=== PATIENT | male | born 1960 | race Caucasian/White ===

== ENCOUNTER 2017-07-03 10:36 | Emergency (ER) | payer OTHER ==
[~2017-07-03] VITALS: Ht 180.3 cm; Wt 95.2 kg
[~2017-07-03 10:36] MED LIST: ASPI81CH PO; ATOR40TA PO; BP MED; CLON.1 PO; CYCL10; HYDACE5325 PO; HYDR1TAB94 PO; Humalog100 UNIT/1 SC; Humulin N100 UNIT/1 SQ; IBUP800; INSULANPEN SC; INSULIN; INSULIN SYRING1 EAC1 MC; LISI5 PO; LORA1 PO; METH5 PO; ONDA4ODT MM; OXYACE7.5T PO; RXLORA1 PO; RXOXYACE PO; TRAM50 PO
[2017-07-03 11:11] LABS: BASOPHILS ABSOLUTE AUTO 0.05 K/mm3 (0.00-0.23); BASOPHILS PERCENT AUTO 1 % (0-2); EOSINOPHILS ABSOLUTE AUTO 0.24 K/mm3 (0.00-0.68); EOSINOPHILS PERCENT AUTO 3 % (0-6); Hematocrit 39.1 % (37.0-53.0); Hemoglobin 13.6 g/dL (13.5-17.5); IMMATURE GRAN ABSOLUTE AUTO 0.02 K/mm3 (0.00-0.10); IMMATURE GRAN PERCENT AUTO 0 % (0-1); LYMPHOCYTES ABSOLUTE AUTO 2.33 K/mm3 (0.84-5.20); LYMPHOCYTES PERCENT AUTO 32 % (21-46); MONOCYTES ABSOLUTE AUTO 0.89 K/mm3 (0.16-1.47); MONOCYTES PERCENT AUTO 12 % (4-13); Mean Corpuscular HGB Conc 34.8 g/dL (31.5-36.5); Mean Corpuscular Volume 86 fL (80-100); Mean Platelet Volume 9.9 fL (9.1-12.4); NEUTROPHILS ABSOLUTE AUTO 3.67 K/mm3 (1.96-9.15); NEUTROPHILS PERCENT AUTO 51 % (41-73); Platelet Count 243 K/mm3 (150-400); RDW Coefficient Variation 13.3 % (11.7-14.2); RDW Standard Deviation 41.9 fL (35.1-46.3); Red Blood Cell Count 4.54 M/mm3 (4.30-5.90)
[2017-07-03 11:28] LABS: Alanine Aminotransfer (ALT/SGP 110 U/L (12-78); Albumin, Blood 3.7 g/dL (3.4-5.0); Alk Phos 100 U/L (50-136); Anion Gap 9 mmol/L (6-16); Aspartate Aminotrans (AST/SGOT 56 U/L (12-37); Beta-hydroxybutyrate 0.8 mg/dL (0.2-2.8); Bilirubin, Total 0.7 mg/dL (0.1-1.0); Blood Urea Nitrogen 24 mg/dL (8-24); Bun/Creatinine Ratio 32.8 (12.0-20.0); CO2, Blood 23 mmol/L (21-32); Calcium, Blood 8.7 mg/dL (8.5-10.1); Chloride, Blood 107 mmol/L (98-108); Creatinine, Blood 0.73 mg/dL (0.60-1.20); Globulin, Blood 3.8 g/dL (2.2-4.0); Glomerular Filtration Rate >60 (60-); Glucose, Blood 252 mg/dL (70-99); Potassium, Blood 3.8 mmol/L (3.5-5.5); Sodium, Blood 139 mmol/L (136-145); Total Protein, Blood 7.5 g/dL (6.4-8.2)
[2017-07-03] MEDS ORDERED: Humalog100 UNIT/1 SC (16:34)
[2017-07-03] MEDS ORDERED: ATHLETIC FOOT C30 GM TOP (16:34)
[2017-07-03] MEDS ORDERED: INSUGL100V SC (16:34)
[2017-07-03] MEDS ORDERED: Bactrim Ds Tab1 EACH PO (16:34)
[2017-07-03] MEDS ORDERED: Prilosec Otc20 MG PO (16:36)
== END 2017-07-03 17:08 | disposition home or self-care (01) ==
LOC: ER 10:36
PROVIDERS: Emergency Medicine
DX: S60.351A Superficial foreign body of right thumb, initial encounter (principal); E11.9 Type 2 diabetes mellitus without complications; B35.3 Tinea pedis; F17.210 Nicotine dependence, cigarettes, uncomplicated; Z79.4 Long term (current) use of insulin; Z87.442 Personal history of urinary calculi; W45.8XXA Other foreign body or object entering through skin, initial encounter
CPT/HCPCS: 10120; 36415; 80053; 82010; 82947; 84484; 85025; 93005; 93010; 96361; 96374; 96375; 99283; J1885; J2405; J7030

== ENCOUNTER 2018-07-19 18:53 | Emergency (ER) | payer SELFPAY ==
[~2018-07-19] VITALS: Ht 182.9 cm; Wt 86.2 kg
[~2018-07-19 18:53] MED LIST changes: +ATHLETIC FOOT C30 GM TOP; +Bactrim Ds Tab1 EACH PO; +INSUGL100V SC; +Prilosec Otc20 MG PO
[2018-07-19] MEDS ORDERED: Percocet 5-3251 EACH PO (20:56)
[2018-07-19] MEDS ORDERED: CEPH500 PO (21:08)
[2018-07-19] MEDS ORDERED: Bactrim Ds Tab1 EACH PO (21:08)
== END 2018-07-19 21:12 | disposition home or self-care (01) ==
LOC: ER 18:53
DX: L03.317 Cellulitis of buttock (principal); L02.31 Cutaneous abscess of buttock; M25.511 Pain in right shoulder; Z79.899 Other long term (current) drug therapy; Z79.4 Long term (current) use of insulin; E11.9 Type 2 diabetes mellitus without complications; F17.210 Nicotine dependence, cigarettes, uncomplicated
CPT/HCPCS: 10060; 73030; 99283-25

== ENCOUNTER 2019-06-10 00:20 | Emergency (ER) | payer OTHER ==
[~2019-06-10] VITALS: Ht 182.9 cm; Wt 83.9 kg
[~2019-06-10 00:20] MED LIST changes: +CEPH500 PO; +Percocet 5-3251 EACH PO
[2019-06-10 01:16] LABS: Source, Urine Clean Catch
[2019-06-10 01:19] LABS: BASOPHILS ABSOLUTE AUTO 0.07 K/mm3 (0.00-0.23); BASOPHILS PERCENT AUTO 1 % (0-2); EOSINOPHILS PERCENT AUTO 3 % (0-6); Hematocrit 38.9 % (37.0-53.0); Hemoglobin 13.2 g/dL (13.5-17.5); IMMATURE GRAN ABSOLUTE AUTO 0.01 K/mm3 (0.00-0.10); IMMATURE GRAN PERCENT AUTO 0 % (0-1); LYMPHOCYTES ABSOLUTE AUTO 2.64 K/mm3 (0.84-5.20); LYMPHOCYTES PERCENT AUTO 35 % (21-46); MONOCYTES PERCENT AUTO 9 % (4-13); Mean Corpuscular HGB 29.5 pg (26.0-34.0); Mean Corpuscular HGB Conc 33.9 g/dL (31.5-36.5); Mean Corpuscular Volume 87 fL (80-100); Mean Platelet Volume 9.6 fL (9.1-12.4); NEUTROPHILS ABSOLUTE AUTO 3.93 K/mm3 (1.96-9.15); NEUTROPHILS PERCENT AUTO 52 % (41-73); Platelet Count 301 K/mm3 (150-400); RDW Coefficient Variation 12.8 % (11.7-14.2); RDW Standard Deviation 40.7 fL (35.1-46.3); Red Blood Cell Count 4.47 M/mm3 (4.30-5.90); White Blood Cell Count 7.55 K/mm3 (4.00-11.30)
[2019-06-10 01:20] LABS: Appearance, Urine Clear (Clear); Bilirubin, Urine Neg (Neg); Blood, Urine 1+ (Neg); Color, Urine Yellow (P-Yellow); Glucose Qualitative, Urine 4+ (Neg); Ketones, Urine Neg (Neg); Leukocyte Esterase, Urine Neg (Neg); Nitrite, Urine Neg (Neg); Protein, Urine Neg (Neg); Urobilinogen, Urine NORM (Normal)
[2019-06-10 01:26] LABS: Bacteria Mod /hpf; Squamous Epithelial Cells Not Seen /hpf (Few); White Blood Cells, Urine 0-2 /hpf (0-5)
[2019-06-10 01:36] LABS: Alanine Aminotransfer (ALT/SGP 95 U/L (12-78); Albumin, Blood 3.1 g/dL (3.4-5.0); Albumin/Globulin Ratio 0.8 (0.8-1.8); Alk Phos 98 U/L (50-136); Anion Gap 8 mmol/L (6-16); Aspartate Aminotrans (AST/SGOT 41 U/L (12-37); Bilirubin, Total 0.5 mg/dL (0.1-1.0); Blood Urea Nitrogen 29 mg/dL (8-24); Bun/Creatinine Ratio 33.3 (12.0-20.0); CO2, Blood 27 mmol/L (21-32); Calcium, Blood 8.8 mg/dL (8.5-10.1); Chloride, Blood 94 mmol/L (98-108); Creatinine, Blood 0.87 mg/dL (0.60-1.20); Globulin, Blood 3.7 g/dL (2.2-4.0); Glomerular Filtration Rate >60 (60-); Glucose, Blood 569 mg/dL (70-99); Potassium, Blood 4.4 mmol/L (3.5-5.5); Sodium, Blood 129 mmol/L (136-145); Total Protein, Blood 6.8 g/dL (6.4-8.2)
== END 2019-06-10 04:50 | disposition home or self-care (01) ==
LOC: ER 00:20
PROVIDERS: Emergency Medicine
DX: R10.9 Unspecified abdominal pain (principal); E11.65 Type 2 diabetes mellitus with hyperglycemia; Z79.4 Long term (current) use of insulin; F17.290 Nicotine dependence, other tobacco product, uncomplicated
CPT/HCPCS: 36415; 74176; 80053; 81001; 82947; 83690; 85025; 87086; 96361; 96374; 96375; 99284-25; J1170; J1815; J1885; J7030

== ENCOUNTER → 2019-08-25 | Outpatient (CLI) | payer OTHER ==
[2019-08-25 18:33] LABS: Bilirubin, Urine Neg (Neg); Blood, Urine 2+ (Neg); Glucose Qualitative, Urine 4+ (Neg); Ketones, Urine Neg (Neg); Leukocyte Esterase, Urine Neg (Neg); Nitrite, Urine Neg (Neg); Protein, Urine Neg (Neg); Specific Gravity, Urine 1.005 (1.003-1.022); Urobilinogen, Urine 1+ (Normal)
[2019-08-25 18:43] LABS: Appearance, Urine Clear (Clear); Color, Urine Yellow (P-Yellow)
[2019-08-25 18:45] LABS: Bacteria Few /hpf; Squamous Epithelial Cells Few /hpf (Few); White Blood Cells, Urine 0-2 /hpf (0-5)
== END | disposition home or self-care (01) ==
LOC: LAB 17:07 → LAB SHORT 17:07
PROVIDERS: Nurse Practitioner Family
DX: E11.9 Type 2 diabetes mellitus without complications (principal)
CPT/HCPCS: 81001; 82043

== ENCOUNTER → 2019-12-08 | Outpatient (CLI) | payer OTHER ==
[2019-12-08 17:50] LABS: BASOPHILS ABSOLUTE AUTO 0.03 K/mm3 (0.00-0.23); BASOPHILS PERCENT AUTO 1 % (0-2); EOSINOPHILS ABSOLUTE AUTO 0.12 K/mm3 (0.00-0.68); EOSINOPHILS PERCENT AUTO 3 % (0-6); Hematocrit 42.5 % (37.0-53.0); Hemoglobin 14.3 g/dL (13.5-17.5); IMMATURE GRAN ABSOLUTE AUTO 0.01 K/mm3 (0.00-0.10); IMMATURE GRAN PERCENT AUTO 0 % (0-1); LYMPHOCYTES ABSOLUTE AUTO 1.86 K/mm3 (0.84-5.20); LYMPHOCYTES PERCENT AUTO 40 % (21-46); MONOCYTES ABSOLUTE AUTO 0.61 K/mm3 (0.16-1.47); MONOCYTES PERCENT AUTO 13 % (4-13); Mean Corpuscular HGB Conc 33.6 g/dL (31.5-36.5); Mean Corpuscular Volume 83 fL (80-100); NEUTROPHILS ABSOLUTE AUTO 2.04 K/mm3 (1.96-9.15); NEUTROPHILS PERCENT AUTO 44 % (41-73); Platelet Count 302 K/mm3 (150-400); RDW Coefficient Variation 12.5 % (11.7-14.2); RDW Standard Deviation 38.1 fL (35.1-46.3); White Blood Cell Count 4.67 K/mm3 (4.00-11.30)
[2019-12-08 19:29] LABS: LDL Direct Measurement 42 mg/dL (0-130)
[2019-12-08 19:32] LABS: Alanine Aminotransfer (ALT/SGP 156 U/L (12-78); Albumin, Blood 3.3 g/dL (3.4-5.0); Albumin/Globulin Ratio 0.9 (0.8-1.8); Alk Phos 104 U/L (50-136); Anion Gap 3 mmol/L (6-16); Aspartate Aminotrans (AST/SGOT 60 U/L (12-37); Bilirubin, Total 0.4 mg/dL (0.1-1.0); Blood Urea Nitrogen 23 mg/dL (8-24); Bun/Creatinine Ratio 20.7 (12.0-20.0); CHOL/HDL RATIO 2.4; CO2, Blood 25 mmol/L (21-32); Chloride, Blood 106 mmol/L (98-108); Cholesterol 90 mg/dL (50-200); Creatinine, Blood 1.11 mg/dL (0.60-1.20); Globulin, Blood 3.8 g/dL (2.2-4.0); Glomerular Filtration Rate >60 (60-); Glucose, Blood 307 mg/dL (70-99); HDL Cholesterol 37 mg/dL (>39); Low Density Lipoprotein Chol 37 mg/dL (0-110); Potassium, Blood 4.1 mmol/L (3.5-5.5); Sodium, Blood 134 mmol/L (136-145); Total Protein, Blood 7.1 g/dL (6.4-8.2); Triglycerides 79 mg/dL (30-160); Very Low Density Lipoprot Chol 15 mg/dL (6-32)
== END ==
LOC: LAB 14:15 → LAB SHORT 14:15
PROVIDERS: Nurse Practitioner Family
DX: Z11.59 Encounter for screening for other viral diseases (principal); E87.1 Hypo-osmolality and hyponatremia; E78.5 Hyperlipidemia, unspecified; E11.40 Type 2 diabetes mellitus with diabetic neuropathy, unspecified
CPT/HCPCS: 80053; 80061; 83036; 83721; 85025; 86803

== ENCOUNTER 2020-09-02 10:20 | Emergency (ER) | payer OTHER ==
[~2020-09-02] VITALS: Ht 182.9 cm; Wt 99.8 kg
[2020-09-02 11:19] LABS: Source, Urine Voided
[2020-09-02 11:25] LABS: BASOPHILS PERCENT AUTO 0 % (0-2); EOSINOPHILS ABSOLUTE AUTO 0.08 K/mm3 (0.00-0.68); EOSINOPHILS PERCENT AUTO 0 % (0-6); Hemoglobin 14.1 g/dL (13.5-17.5); IMMATURE GRAN ABSOLUTE AUTO 0.35 K/mm3 (0.00-0.10); IMMATURE GRAN PERCENT AUTO 1 % (0-1); LYMPHOCYTES ABSOLUTE AUTO 1.53 K/mm3 (0.84-5.20); LYMPHOCYTES PERCENT AUTO 5 % (21-46); MONOCYTES ABSOLUTE AUTO 1.89 K/mm3 (0.16-1.47); MONOCYTES PERCENT AUTO 6 % (4-13); Mean Corpuscular HGB 28.1 pg (26.0-34.0); Mean Corpuscular HGB Conc 34.4 g/dL (31.5-36.5); Mean Corpuscular Volume 82 fL (80-100); Mean Platelet Volume 9.4 fL (9.1-12.4); NEUTROPHILS ABSOLUTE AUTO 25.74 K/mm3 (1.96-9.15); NEUTROPHILS PERCENT AUTO 87 % (41-73); Platelet Count 459 K/mm3 (150-400); RDW Coefficient Variation 12.6 % (11.7-14.2); RDW Standard Deviation 37.8 fL (35.1-46.3); Red Blood Cell Count 5.01 M/mm3 (4.30-5.90); White Blood Cell Count 29.69 K/mm3 (4.00-11.30)
[2020-09-02 11:31] LABS: Appearance, Urine Turbid (Clear); Bilirubin, Urine Neg (Neg); Blood, Urine 5+ (Neg); Color, Urine Yellow (P-Yellow); Glucose Qualitative, Urine 3+ (Neg); Ketones, Urine Neg (Neg); Leukocyte Esterase, Urine 3+ (Neg); Nitrite, Urine Pos (Neg); Protein, Urine 3+ (Neg); Urobilinogen, Urine 3+ (Normal)
[2020-09-02 11:35] LABS: Albumin, Blood 2.4 g/dL (3.4-5.0); Albumin/Globulin Ratio 0.4 (0.8-1.8); Bilirubin, Total 0.8 mg/dL (0.1-1.0); Calcium, Blood 8.9 mg/dL (8.5-10.1); Creatinine, Blood 1.5 mg/dL (0.60-1.20); Globulin, Blood 5.6 g/dL (2.2-4.0); Potassium, Blood 4.3 mmol/L (3.5-5.5)
[2020-09-02 12:07] LABS: Amorphous Mod (0-Heavy); Bacteria Many /hpf; Squamous Epithelial Cells Not Seen /hpf (Few); White Blood Cells, Urine TNTC /hpf (0-5)
== END 2020-09-02 14:18 | disposition short-term general hospital (02) ==
LOC: ER 10:20
PROVIDERS: Emergency Medicine
DX: N13.6 Pyonephrosis (principal); E11.65 Type 2 diabetes mellitus with hyperglycemia; F17.290 Nicotine dependence, other tobacco product, uncomplicated; Z79.4 Long term (current) use of insulin
CPT/HCPCS: 36415; 74176; 80053; 81001; 82947; 85025; 87077; 87086; 87147; 87186; 96365; 96375; 96376; 99285-25; J0696; J1170; J1200; J2765; J7030

== ENCOUNTER 2020-09-14 08:50 | Day surgery (SDC) | payer OTHER ==
[2020-09-14] MEDS ORDERED: NEURONTIN300 MG PO (16:04)
[2020-09-14] MEDS ORDERED: TAMSULOSIN HCL0.4 M1 PO (16:04)
[2020-09-14] MEDS ORDERED: AMLO10 PO (16:05)
[2020-09-14] MEDS ORDERED: CARV3.125 PO (16:06)
[2020-09-14] MEDS ORDERED: Prinivil10 MG PO (16:07)
== END 2020-09-14 16:35 | disposition home or self-care (01) ==
LOC: ATC 08:50
DX: N41.8 Other inflammatory diseases of prostate (principal); B95.62 Methicillin resistant Staphylococcus aureus infection as the cause of diseases classified elsewhere; M00.9 Pyogenic arthritis, unspecified; I10 Essential (primary) hypertension; E11.9 Type 2 diabetes mellitus without complications; Z79.4 Long term (current) use of insulin; Z87.891 Personal history of nicotine dependence
CPT/HCPCS: 96365; J0878

== ENCOUNTER 2020-09-15 00:34 | Day surgery (SDC) | payer OTHER ==
[~2020-09-15 00:34] MED LIST changes: +AMLO10 PO; +CARV3.125 PO; +NEURONTIN300 MG PO; +Prinivil10 MG PO; +TAMSULOSIN HCL0.4 M1 PO
== END 2020-09-15 15:08 | disposition home or self-care (01) ==
LOC: ATC 00:34
DX: N41.9 Inflammatory disease of prostate, unspecified (principal); B95.62 Methicillin resistant Staphylococcus aureus infection as the cause of diseases classified elsewhere; M00.811 Arthritis due to other bacteria, right shoulder; Z79.4 Long term (current) use of insulin; E11.65 Type 2 diabetes mellitus with hyperglycemia; I10 Essential (primary) hypertension; F17.200 Nicotine dependence, unspecified, uncomplicated
CPT/HCPCS: 96365; J0878

== ENCOUNTER 2020-09-16 00:15 | Day surgery (SDC) | payer OTHER | END 2020-09-16 15:12 | disposition home or self-care (01) | LOC: ATC 00:15 | DX: N41.8 Other inflammatory diseases of prostate (principal); B95.62 Methicillin resistant Staphylococcus aureus infection as the cause of diseases classified elsewhere; M00.9 Pyogenic arthritis, unspecified; E11.9 Type 2 diabetes mellitus without complications; I10 Essential (primary) hypertension; Z79.4 Long term (current) use of insulin; Z87.891 Personal history of nicotine dependence; Z87.442 Personal history of urinary calculi | CPT/HCPCS: 96365; J0878 ==

== ENCOUNTER 2020-09-17 00:52 | Day surgery (SDC) | payer OTHER | END 2020-09-17 22:43 | disposition home or self-care (01) | LOC: ATC 00:52 | DX: N41.9 Inflammatory disease of prostate, unspecified (principal); B95.62 Methicillin resistant Staphylococcus aureus infection as the cause of diseases classified elsewhere; M00.9 Pyogenic arthritis, unspecified; E11.22 Type 2 diabetes mellitus with diabetic chronic kidney disease; I12.9 Hypertensive chronic kidney disease with stage 1 through stage 4 chronic kidney disease, or unspecified chronic kidney disease; N18.30 Chronic kidney disease, stage 3 unspecified; Z79.4 Long term (current) use of insulin; Z87.891 Personal history of nicotine dependence; Z87.442 Personal history of urinary calculi; Z90.79 Acquired absence of other genital organ(s) | CPT/HCPCS: 96365; J0878 ==

== ENCOUNTER 2020-09-18 00:25 | Day surgery (SDC) | payer OTHER ==
[2020-09-18 17:23] LABS: BASOPHILS ABSOLUTE AUTO 0.12 K/mm3 (0.00-0.23); BASOPHILS PERCENT AUTO 1 % (0-2); EOSINOPHILS ABSOLUTE AUTO 0.28 K/mm3 (0.00-0.68); EOSINOPHILS PERCENT AUTO 3 % (0-6); Hematocrit 34.7 % (37.0-53.0); Hemoglobin 11.3 g/dL (13.5-17.5); IMMATURE GRAN ABSOLUTE AUTO 0.06 K/mm3 (0.00-0.10); IMMATURE GRAN PERCENT AUTO 1 % (0-1); LYMPHOCYTES ABSOLUTE AUTO 2.21 K/mm3 (0.84-5.20); LYMPHOCYTES PERCENT AUTO 21 % (21-46); MONOCYTES ABSOLUTE AUTO 1.02 K/mm3 (0.16-1.47); MONOCYTES PERCENT AUTO 10 % (4-13); Mean Corpuscular HGB 27.2 pg (26.0-34.0); Mean Corpuscular HGB Conc 32.6 g/dL (31.5-36.5); Mean Corpuscular Volume 84 fL (80-100); Mean Platelet Volume 8.5 fL (9.1-12.4); NEUTROPHILS ABSOLUTE AUTO 6.98 K/mm3 (1.96-9.15); NEUTROPHILS PERCENT AUTO 65 % (41-73); Platelet Count 613 K/mm3 (150-400); RDW Coefficient Variation 12.8 % (11.7-14.2); RDW Standard Deviation 38.7 fL (35.1-46.3); Red Blood Cell Count 4.15 M/mm3 (4.30-5.90); White Blood Cell Count 10.67 K/mm3 (4.00-11.30)
[2020-09-18 17:36] LABS: C-REACTIVE PROTEIN, EXT RANGE 3.55 mg/dL (0.000-0.300)
[2020-09-18 17:40] LABS: Albumin, Blood 2.3 g/dL (3.4-5.0); Albumin/Globulin Ratio 0.4 (0.8-1.8); Bilirubin, Total 0.5 mg/dL (0.1-1.0); Bun/Creatinine Ratio 19.5 (12.0-20.0); Calcium, Blood 8.5 mg/dL (8.5-10.1); Creatine Kinase MB 2.7 ng/mL (0.0-3.6); Creatine Kinase MB Index 8.7 (0.0-4.0); Creatinine, Blood 1.49 mg/dL (0.60-1.20); Globulin, Blood 6.5 g/dL (2.2-4.0); Potassium, Blood 4.5 mmol/L (3.5-5.5); Total Protein, Blood 8.8 g/dL (6.4-8.2)
--- NOTE | 2020-09-18 17:47 | NUR ---
LAB RESULTS FAXED TO DR ROBLES PER REQUEST
== END 2020-09-18 17:33 | disposition home or self-care (01) ==
LOC: ATC 00:25
PROVIDERS: Urology
DX: N41.9 Inflammatory disease of prostate, unspecified (principal); B95.62 Methicillin resistant Staphylococcus aureus infection as the cause of diseases classified elsewhere; M00.011 Staphylococcal arthritis, right shoulder; I12.9 Hypertensive chronic kidney disease with stage 1 through stage 4 chronic kidney disease, or unspecified chronic kidney disease; E11.22 Type 2 diabetes mellitus with diabetic chronic kidney disease; N18.30 Chronic kidney disease, stage 3 unspecified; E11.65 Type 2 diabetes mellitus with hyperglycemia; F15.10 Other stimulant abuse, uncomplicated; Z79.4 Long term (current) use of insulin; Z87.891 Personal history of nicotine dependence
CPT/HCPCS: 80053; 82550; 82553; 85025; 86140; 96365; J0878

== ENCOUNTER 2020-09-19 00:07 | Day surgery (SDC) | payer OTHER | END 2020-09-19 15:08 | disposition home or self-care (01) | LOC: ATC 00:07 | DX: N41.9 Inflammatory disease of prostate, unspecified (principal); B95.62 Methicillin resistant Staphylococcus aureus infection as the cause of diseases classified elsewhere; M00.9 Pyogenic arthritis, unspecified; E11.22 Type 2 diabetes mellitus with diabetic chronic kidney disease; I12.9 Hypertensive chronic kidney disease with stage 1 through stage 4 chronic kidney disease, or unspecified chronic kidney disease; N18.30 Chronic kidney disease, stage 3 unspecified; F15.10 Other stimulant abuse, uncomplicated; Z79.4 Long term (current) use of insulin; Z87.891 Personal history of nicotine dependence; Z90.79 Acquired absence of other genital organ(s); Z87.442 Personal history of urinary calculi | CPT/HCPCS: 96365; J0878 ==

== ENCOUNTER 2020-09-21 00:38 | Day surgery (SDC) | payer OTHER ==
--- NOTE | 2020-09-21 15:40 | NUR ---
PT ARRIVED WITH ELEVATED BP OF 175/90. AFTER BEING SEATED AND RESTING BP 155/90. PT REPORTS THAT HE DID NOT TAKE BP MEDICATION TODAY.CLIENT EDUCATED ON THE IMPORTANCE OF TAKING DAILY MEDICATIONS INSTRUCTED, AND RISK OF STROKE, [place]. HE DENIES ANY UNUSUAL SYMPTOMS AND REPORTS THAT HE IS FINE HE VERBALIZES UNDERSTANDING AND REPORTS THAT HE WILL TAKE MEDICATION TODAY WHEN HE RETURNS HOME. THIS RN RECOMMENDS TAKING BP 60 MINUTES AFTER AND CALLING PCP IF NOT LOWER. HE VERBALIZED UNDERSTANDING
== END 2020-09-21 15:24 | disposition home or self-care (01) ==
LOC: ATC 00:38
DX: N41.9 Inflammatory disease of prostate, unspecified (principal); B95.62 Methicillin resistant Staphylococcus aureus infection as the cause of diseases classified elsewhere; M00.9 Pyogenic arthritis, unspecified; E11.22 Type 2 diabetes mellitus with diabetic chronic kidney disease; I12.9 Hypertensive chronic kidney disease with stage 1 through stage 4 chronic kidney disease, or unspecified chronic kidney disease; N18.30 Chronic kidney disease, stage 3 unspecified; Z79.4 Long term (current) use of insulin; Z87.442 Personal history of urinary calculi; Z87.891 Personal history of nicotine dependence
CPT/HCPCS: 96365; J0878

== ENCOUNTER 2020-09-22 00:10 | Day surgery (SDC) | payer OTHER | END 2020-09-22 15:18 | disposition home or self-care (01) | LOC: ATC 00:10 | DX: N41.9 Inflammatory disease of prostate, unspecified (principal); M00.011 Staphylococcal arthritis, right shoulder; B95.62 Methicillin resistant Staphylococcus aureus infection as the cause of diseases classified elsewhere; I12.9 Hypertensive chronic kidney disease with stage 1 through stage 4 chronic kidney disease, or unspecified chronic kidney disease; E11.22 Type 2 diabetes mellitus with diabetic chronic kidney disease; N18.30 Chronic kidney disease, stage 3 unspecified; E11.65 Type 2 diabetes mellitus with hyperglycemia; F17.210 Nicotine dependence, cigarettes, uncomplicated; Z79.4 Long term (current) use of insulin | CPT/HCPCS: 96365; J0878 ==

== ENCOUNTER 2020-09-23 00:06 | Day surgery (SDC) | payer OTHER | END 2020-09-23 15:59 | disposition home or self-care (01) | LOC: ATC 00:06 | DX: N41.9 Inflammatory disease of prostate, unspecified (principal); B95.62 Methicillin resistant Staphylococcus aureus infection as the cause of diseases classified elsewhere; M00.9 Pyogenic arthritis, unspecified; I12.9 Hypertensive chronic kidney disease with stage 1 through stage 4 chronic kidney disease, or unspecified chronic kidney disease; E11.22 Type 2 diabetes mellitus with diabetic chronic kidney disease; N18.30 Chronic kidney disease, stage 3 unspecified; F15.10 Other stimulant abuse, uncomplicated; Z79.4 Long term (current) use of insulin; Z87.891 Personal history of nicotine dependence; Z87.442 Personal history of urinary calculi | CPT/HCPCS: 96365; J0878 ==

== ENCOUNTER 2020-09-24 01:12 | Day surgery (SDC) | payer OTHER | END 2020-09-24 15:17 | disposition home or self-care (01) | LOC: ATC 01:12 | DX: A41.02 Sepsis due to Methicillin resistant Staphylococcus aureus (principal); N12 Tubulo-interstitial nephritis, not specified as acute or chronic; E11.22 Type 2 diabetes mellitus with diabetic chronic kidney disease; N18.30 Chronic kidney disease, stage 3 unspecified; Z79.4 Long term (current) use of insulin; Z87.891 Personal history of nicotine dependence; Z90.79 Acquired absence of other genital organ(s); Z87.442 Personal history of urinary calculi | CPT/HCPCS: 96365; J0878 ==

== ENCOUNTER 2020-09-25 00:28 | Day surgery (SDC) | payer OTHER ==
[2020-09-25 15:20] LABS: BASOPHILS PERCENT AUTO 1 % (0-2); EOSINOPHILS ABSOLUTE AUTO 0.45 K/mm3 (0.00-0.68); EOSINOPHILS PERCENT AUTO 5 % (0-6); Hematocrit 36.4 % (37.0-53.0); Hemoglobin 11.7 g/dL (13.5-17.5); IMMATURE GRAN ABSOLUTE AUTO 0.04 K/mm3 (0.00-0.10); IMMATURE GRAN PERCENT AUTO 0 % (0-1); LYMPHOCYTES ABSOLUTE AUTO 2.69 K/mm3 (0.84-5.20); LYMPHOCYTES PERCENT AUTO 28 % (21-46); MONOCYTES ABSOLUTE AUTO 0.87 K/mm3 (0.16-1.47); MONOCYTES PERCENT AUTO 9 % (4-13); Mean Corpuscular HGB 26.9 pg (26.0-34.0); Mean Corpuscular HGB Conc 32.1 g/dL (31.5-36.5); Mean Corpuscular Volume 84 fL (80-100); Mean Platelet Volume 8.8 fL (9.1-12.4); NEUTROPHILS ABSOLUTE AUTO 5.59 K/mm3 (1.96-9.15); NEUTROPHILS PERCENT AUTO 58 % (41-73); Platelet Count 480 K/mm3 (150-400); RDW Coefficient Variation 13.2 % (11.7-14.2); RDW Standard Deviation 39.8 fL (35.1-46.3); Red Blood Cell Count 4.35 M/mm3 (4.30-5.90); White Blood Cell Count 9.74 K/mm3 (4.00-11.30)
[2020-09-25 15:42] LABS: Albumin, Blood 2.6 g/dL (3.4-5.0); Albumin/Globulin Ratio 0.4 (0.8-1.8); Bilirubin, Total 0.5 mg/dL (0.1-1.0); C-REACTIVE PROTEIN, EXT RANGE 0.622 mg/dL (0.000-0.300); Calcium, Blood 8.8 mg/dL (8.5-10.1); Creatine Kinase MB 3.1 ng/mL (0.0-3.6); Creatinine, Blood 1.39 mg/dL (0.60-1.20); Globulin, Blood 6.4 g/dL (2.2-4.0); Potassium, Blood 4.5 mmol/L (3.5-5.5)
--- NOTE | 2020-09-25 16:11 | NUR ---
136/100. PT DENIES ANY UNUSUAL SYMPTOMS. THIS RN RECOMMENDS HE STOP AT ED FOR EVALUATION. CLIENT DECLINES. HE IS INSTUCTED THAT IF ANY VISON, SPEACH OR MOTOR CHANGES HE SHOULD SEEK HELP IMMEDIATELY. THIS RN ALSO RECOMMEND HE TAKE BP 2X DAILY AND REPORT RESULTS TO PCP
== END 2020-09-25 15:55 | disposition home or self-care (01) ==
LOC: ATC 00:28
PROVIDERS: Urology
DX: A41.02 Sepsis due to Methicillin resistant Staphylococcus aureus (principal); N12 Tubulo-interstitial nephritis, not specified as acute or chronic; E11.22 Type 2 diabetes mellitus with diabetic chronic kidney disease; I12.9 Hypertensive chronic kidney disease with stage 1 through stage 4 chronic kidney disease, or unspecified chronic kidney disease; N18.30 Chronic kidney disease, stage 3 unspecified; Z79.4 Long term (current) use of insulin; Z87.891 Personal history of nicotine dependence; Z90.79 Acquired absence of other genital organ(s); Z87.442 Personal history of urinary calculi
CPT/HCPCS: 80053; 82550; 82553; 85025; 86140; 96365; J0878

== ENCOUNTER 2020-09-26 00:13 | Day surgery (SDC) | payer OTHER | END 2020-09-26 15:25 | disposition home or self-care (01) | LOC: ATC 00:13 | DX: A41.02 Sepsis due to Methicillin resistant Staphylococcus aureus (principal); N12 Tubulo-interstitial nephritis, not specified as acute or chronic; I12.9 Hypertensive chronic kidney disease with stage 1 through stage 4 chronic kidney disease, or unspecified chronic kidney disease; E11.22 Type 2 diabetes mellitus with diabetic chronic kidney disease; N18.30 Chronic kidney disease, stage 3 unspecified; E11.65 Type 2 diabetes mellitus with hyperglycemia; Z79.4 Long term (current) use of insulin | CPT/HCPCS: 96365; J0878 ==

== ENCOUNTER 2020-09-27 01:45 | Day surgery (SDC) | payer OTHER ==
[2020-09-28] MEDS ORDERED: CUBICIN500 MG IV (14:17)
== END 2020-09-27 15:19 | disposition home or self-care (01) ==
LOC: ATC 01:45
DX: A41.9 Sepsis, unspecified organism (principal); N39.0 Urinary tract infection, site not specified; B95.62 Methicillin resistant Staphylococcus aureus infection as the cause of diseases classified elsewhere; F17.210 Nicotine dependence, cigarettes, uncomplicated; I12.9 Hypertensive chronic kidney disease with stage 1 through stage 4 chronic kidney disease, or unspecified chronic kidney disease; N18.30 Chronic kidney disease, stage 3 unspecified; E11.22 Type 2 diabetes mellitus with diabetic chronic kidney disease; Z79.4 Long term (current) use of insulin; Z79.899 Other long term (current) drug therapy
CPT/HCPCS: 96365; J0878

== ENCOUNTER 2020-09-28 00:14 | Day surgery (SDC) | payer OTHER ==
[2020-09-28] MEDS ORDERED: CUBICIN500 MG IV (14:17)
== END 2020-09-28 14:34 | disposition home or self-care (01) ==
LOC: ATC 00:14
DX: A41.9 Sepsis, unspecified organism (principal); N13.6 Pyonephrosis; I12.9 Hypertensive chronic kidney disease with stage 1 through stage 4 chronic kidney disease, or unspecified chronic kidney disease; N18.30 Chronic kidney disease, stage 3 unspecified; E11.22 Type 2 diabetes mellitus with diabetic chronic kidney disease
CPT/HCPCS: 96365; J0878

== ENCOUNTER 2020-09-29 00:23 | Day surgery (SDC) | payer OTHER ==
[~2020-09-29 00:23] MED LIST changes: +CUBICIN500 MG IV
== END 2020-09-29 23:00 | disposition home or self-care (01) ==
LOC: ATC 00:23
DX: A41.9 Sepsis, unspecified organism (principal); N13.6 Pyonephrosis; B95.62 Methicillin resistant Staphylococcus aureus infection as the cause of diseases classified elsewhere; I12.9 Hypertensive chronic kidney disease with stage 1 through stage 4 chronic kidney disease, or unspecified chronic kidney disease; N18.30 Chronic kidney disease, stage 3 unspecified; E11.22 Type 2 diabetes mellitus with diabetic chronic kidney disease; Z79.4 Long term (current) use of insulin; Z79.899 Other long term (current) drug therapy
CPT/HCPCS: J0878

== ENCOUNTER 2020-09-30 00:03 | Day surgery (SDC) | payer OTHER | END 2020-09-30 15:25 | disposition home or self-care (01) | LOC: ATC 00:03 | DX: A41.02 Sepsis due to Methicillin resistant Staphylococcus aureus (principal); N39.0 Urinary tract infection, site not specified; E11.65 Type 2 diabetes mellitus with hyperglycemia; B19.20 Unspecified viral hepatitis C without hepatic coma; N41.2 Abscess of prostate; N13.2 Hydronephrosis with renal and ureteral calculous obstruction; M00.9 Pyogenic arthritis, unspecified; E11.22 Type 2 diabetes mellitus with diabetic chronic kidney disease; I12.9 Hypertensive chronic kidney disease with stage 1 through stage 4 chronic kidney disease, or unspecified chronic kidney disease; N18.30 Chronic kidney disease, stage 3 unspecified; F15.90 Other stimulant use, unspecified, uncomplicated; N12 Tubulo-interstitial nephritis, not specified as acute or chronic; Z87.891 Personal history of nicotine dependence; Z79.4 Long term (current) use of insulin; Z22.322 Carrier or suspected carrier of Methicillin resistant Staphylococcus aureus | CPT/HCPCS: 96365; J0878 ==

== ENCOUNTER 2020-10-01 00:17 | Day surgery (SDC) | payer OTHER ==
--- NOTE | 2020-10-06 11:59 | NUR ---
ANTIBIOTIC STOP TIME: [id number]
== END 2020-10-01 15:28 | disposition home or self-care (01) ==
LOC: ATC 00:17
DX: N41.8 Other inflammatory diseases of prostate (principal); B95.62 Methicillin resistant Staphylococcus aureus infection as the cause of diseases classified elsewhere; M00.9 Pyogenic arthritis, unspecified; E11.9 Type 2 diabetes mellitus without complications; Z79.4 Long term (current) use of insulin; Z87.891 Personal history of nicotine dependence; I10 Essential (primary) hypertension
CPT/HCPCS: 96365; J0878

== ENCOUNTER 2020-10-02 00:14 | Day surgery (SDC) | payer OTHER ==
[2020-10-02 16:52] LABS: BASOPHILS ABSOLUTE AUTO 0.08 K/mm3 (0.00-0.23); BASOPHILS PERCENT AUTO 1 % (0-2); EOSINOPHILS ABSOLUTE AUTO 0.45 K/mm3 (0.00-0.68); EOSINOPHILS PERCENT AUTO 5 % (0-6); Hematocrit 36.5 % (37.0-53.0); Hemoglobin 12.2 g/dL (13.5-17.5); IMMATURE GRAN ABSOLUTE AUTO 0.02 K/mm3 (0.00-0.10); IMMATURE GRAN PERCENT AUTO 0 % (0-1); LYMPHOCYTES ABSOLUTE AUTO 2.73 K/mm3 (0.84-5.20); LYMPHOCYTES PERCENT AUTO 31 % (21-46); MONOCYTES ABSOLUTE AUTO 0.76 K/mm3 (0.16-1.47); MONOCYTES PERCENT AUTO 9 % (4-13); Mean Corpuscular HGB 27.5 pg (26.0-34.0); Mean Corpuscular HGB Conc 33.4 g/dL (31.5-36.5); Mean Corpuscular Volume 82 fL (80-100); Mean Platelet Volume 9.4 fL (9.1-12.4); NEUTROPHILS ABSOLUTE AUTO 4.75 K/mm3 (1.96-9.15); NEUTROPHILS PERCENT AUTO 54 % (41-73); Platelet Count 419 K/mm3 (150-400); RDW Coefficient Variation 13.7 % (11.7-14.2); RDW Standard Deviation 40.9 fL (35.1-46.3); Red Blood Cell Count 4.44 M/mm3 (4.30-5.90); White Blood Cell Count 8.79 K/mm3 (4.00-11.30)
[2020-10-02 17:11] LABS: C-REACTIVE PROTEIN, EXT RANGE 1.23 mg/dL (0.000-0.300)
[2020-10-02 17:14] LABS: Albumin/Globulin Ratio 0.5 (0.8-1.8); Bilirubin, Total 0.6 mg/dL (0.1-1.0); Bun/Creatinine Ratio 15.9 (12.0-20.0); Calcium, Blood 9.2 mg/dL (8.5-10.1); Creatine Kinase MB 2.4 ng/mL (0.0-3.6); Creatine Kinase MB Index 6.3 (0.0-4.0); Creatinine, Blood 1.38 mg/dL (0.60-1.20); Globulin, Blood 6.2 g/dL (2.2-4.0); Potassium, Blood 3.9 mmol/L (3.5-5.5); Total Protein, Blood 9.2 g/dL (6.4-8.2)
== END 2020-10-02 16:54 | disposition home or self-care (01) ==
LOC: ATC 00:14
PROVIDERS: Internal Medicine Infectious Disease
DX: N41.8 Other inflammatory diseases of prostate (principal); B95.62 Methicillin resistant Staphylococcus aureus infection as the cause of diseases classified elsewhere; M00.9 Pyogenic arthritis, unspecified; E11.65 Type 2 diabetes mellitus with hyperglycemia; I12.9 Hypertensive chronic kidney disease with stage 1 through stage 4 chronic kidney disease, or unspecified chronic kidney disease; E11.22 Type 2 diabetes mellitus with diabetic chronic kidney disease; N18.30 Chronic kidney disease, stage 3 unspecified; F17.210 Nicotine dependence, cigarettes, uncomplicated; Z79.4 Long term (current) use of insulin
CPT/HCPCS: 80053; 82550; 82553; 85025; 86140; 96365; J0878

== ENCOUNTER 2020-10-03 00:42 | Day surgery (SDC) | payer OTHER | END 2020-10-03 15:40 | disposition home or self-care (01) | LOC: ATC 00:42 | DX: N41.9 Inflammatory disease of prostate, unspecified (principal); B95.62 Methicillin resistant Staphylococcus aureus infection as the cause of diseases classified elsewhere; M00.9 Pyogenic arthritis, unspecified; I12.9 Hypertensive chronic kidney disease with stage 1 through stage 4 chronic kidney disease, or unspecified chronic kidney disease; N18.30 Chronic kidney disease, stage 3 unspecified; E11.22 Type 2 diabetes mellitus with diabetic chronic kidney disease; F15.10 Other stimulant abuse, uncomplicated; Z87.442 Personal history of urinary calculi; Z87.891 Personal history of nicotine dependence; Z79.4 Long term (current) use of insulin | CPT/HCPCS: 96365; J0878 ==

== ENCOUNTER 2020-10-04 00:02 | Day surgery (SDC) | payer OTHER | END 2020-10-04 15:33 | disposition home or self-care (01) | LOC: ATC 00:02 | DX: N41.9 Inflammatory disease of prostate, unspecified (principal); B95.62 Methicillin resistant Staphylococcus aureus infection as the cause of diseases classified elsewhere; M00.9 Pyogenic arthritis, unspecified; I12.9 Hypertensive chronic kidney disease with stage 1 through stage 4 chronic kidney disease, or unspecified chronic kidney disease; E11.22 Type 2 diabetes mellitus with diabetic chronic kidney disease; N18.30 Chronic kidney disease, stage 3 unspecified; Z79.4 Long term (current) use of insulin; Z87.891 Personal history of nicotine dependence | CPT/HCPCS: 96365; J0878 ==

== ENCOUNTER 2020-10-05 00:12 | Day surgery (SDC) | payer OTHER | END 2020-10-05 15:27 | disposition home or self-care (01) | LOC: ATC 00:12 | DX: N41.9 Inflammatory disease of prostate, unspecified (principal); B95.62 Methicillin resistant Staphylococcus aureus infection as the cause of diseases classified elsewhere; M00.9 Pyogenic arthritis, unspecified; E11.65 Type 2 diabetes mellitus with hyperglycemia; F17.210 Nicotine dependence, cigarettes, uncomplicated; I12.9 Hypertensive chronic kidney disease with stage 1 through stage 4 chronic kidney disease, or unspecified chronic kidney disease; E11.22 Type 2 diabetes mellitus with diabetic chronic kidney disease; N18.30 Chronic kidney disease, stage 3 unspecified; Z86.19 Personal history of other infectious and parasitic diseases; Z87.81 Personal history of (healed) traumatic fracture; Z79.4 Long term (current) use of insulin; Z87.442 Personal history of urinary calculi | CPT/HCPCS: 96365; J0878 ==

== ENCOUNTER 2020-10-06 | Day surgery (SDC) | payer OTHER | END 2020-10-06 16:48 | disposition home or self-care (01) | LOC: ATC | DX: N41.9 Inflammatory disease of prostate, unspecified (principal); B95.62 Methicillin resistant Staphylococcus aureus infection as the cause of diseases classified elsewhere; M00.9 Pyogenic arthritis, unspecified; E11.22 Type 2 diabetes mellitus with diabetic chronic kidney disease; I12.9 Hypertensive chronic kidney disease with stage 1 through stage 4 chronic kidney disease, or unspecified chronic kidney disease; N18.30 Chronic kidney disease, stage 3 unspecified; Z79.4 Long term (current) use of insulin; Z87.442 Personal history of urinary calculi; Z87.891 Personal history of nicotine dependence; Z90.79 Acquired absence of other genital organ(s) | CPT/HCPCS: 96365; J0878 ==

== ENCOUNTER 2020-10-07 00:39 | Day surgery (SDC) | payer OTHER | END 2020-10-07 16:24 | disposition home or self-care (01) | LOC: ATC 00:39 | DX: N41.9 Inflammatory disease of prostate, unspecified (principal); B95.62 Methicillin resistant Staphylococcus aureus infection as the cause of diseases classified elsewhere; M00.9 Pyogenic arthritis, unspecified; I12.9 Hypertensive chronic kidney disease with stage 1 through stage 4 chronic kidney disease, or unspecified chronic kidney disease; E11.22 Type 2 diabetes mellitus with diabetic chronic kidney disease; N18.30 Chronic kidney disease, stage 3 unspecified; F15.10 Other stimulant abuse, uncomplicated; Z87.891 Personal history of nicotine dependence; Z79.4 Long term (current) use of insulin; Z87.442 Personal history of urinary calculi | CPT/HCPCS: 96365; J0878 ==

== ENCOUNTER 2020-10-08 00:21 | Day surgery (SDC) | payer OTHER | END 2020-10-08 15:35 | disposition home or self-care (01) | LOC: ATC 00:21 | DX: N41.9 Inflammatory disease of prostate, unspecified (principal); B95.62 Methicillin resistant Staphylococcus aureus infection as the cause of diseases classified elsewhere; M00.9 Pyogenic arthritis, unspecified; Z95.828 Presence of other vascular implants and grafts; F17.210 Nicotine dependence, cigarettes, uncomplicated; I12.9 Hypertensive chronic kidney disease with stage 1 through stage 4 chronic kidney disease, or unspecified chronic kidney disease; N18.30 Chronic kidney disease, stage 3 unspecified; Z86.19 Personal history of other infectious and parasitic diseases; Z87.81 Personal history of (healed) traumatic fracture; Z79.4 Long term (current) use of insulin; Z87.442 Personal history of urinary calculi; E11.9 Type 2 diabetes mellitus without complications | CPT/HCPCS: 96365; J0878 ==

== ENCOUNTER 2020-10-10 00:33 | Day surgery (SDC) | payer OTHER ==
[2020-10-10 15:28] LABS: BASOPHILS ABSOLUTE AUTO 0.09 K/mm3 (0.00-0.23); BASOPHILS PERCENT AUTO 1 % (0-2); EOSINOPHILS ABSOLUTE AUTO 0.32 K/mm3 (0.00-0.68); EOSINOPHILS PERCENT AUTO 5 % (0-6); Hemoglobin 12.5 g/dL (13.5-17.5); IMMATURE GRAN ABSOLUTE AUTO 0.01 K/mm3 (0.00-0.10); IMMATURE GRAN PERCENT AUTO 0 % (0-1); LYMPHOCYTES ABSOLUTE AUTO 2.42 K/mm3 (0.84-5.20); LYMPHOCYTES PERCENT AUTO 39 % (21-46); MONOCYTES ABSOLUTE AUTO 0.58 K/mm3 (0.16-1.47); MONOCYTES PERCENT AUTO 9 % (4-13); Mean Corpuscular HGB 26.7 pg (26.0-34.0); Mean Corpuscular HGB Conc 32.1 g/dL (31.5-36.5); Mean Corpuscular Volume 83 fL (80-100); Mean Platelet Volume 8.9 fL (9.1-12.4); NEUTROPHILS ABSOLUTE AUTO 2.85 K/mm3 (1.96-9.15); NEUTROPHILS PERCENT AUTO 45 % (41-73); Platelet Count 405 K/mm3 (150-400); RDW Coefficient Variation 13.7 % (11.7-14.2); RDW Standard Deviation 41.9 fL (35.1-46.3); Red Blood Cell Count 4.69 M/mm3 (4.30-5.90); White Blood Cell Count 6.27 K/mm3 (4.00-11.30)
[2020-10-10 15:52] LABS: Alanine Aminotransfer (ALT/SGP 64 U/L (12-78); Albumin, Blood 2.8 g/dL (3.4-5.0); Albumin/Globulin Ratio 0.5 (0.8-1.8); Alk Phos 145 U/L (50-136); Anion Gap 5 mmol/L (6-16); Aspartate Aminotrans (AST/SGOT 59 U/L (12-37); Bilirubin, Total 0.6 mg/dL (0.1-1.0); Blood Urea Nitrogen 23 mg/dL (8-24); Bun/Creatinine Ratio 18.9 (12.0-20.0); C-REACTIVE PROTEIN, EXT RANGE <0.290 mg/dL (0.000-0.300); CO2, Blood 26 mmol/L (21-32); CPK Creatine Kinase 59 U/L (39-308); Calcium, Blood 8.9 mg/dL (8.5-10.1); Chloride, Blood 103 mmol/L (98-108); Creatinine, Blood 1.22 mg/dL (0.60-1.20); Globulin, Blood 5.7 g/dL (2.2-4.0); Glomerular Filtration Rate >60 (60-); Glucose, Blood 121 mg/dL (70-99); Potassium, Blood 3.8 mmol/L (3.5-5.5); Sodium, Blood 134 mmol/L (136-145); Total Protein, Blood 8.5 g/dL (6.4-8.2)
== END 2020-10-10 15:30 | disposition home or self-care (01) ==
LOC: ATC 00:33
PROVIDERS: Internal Medicine Infectious Disease
DX: N41.9 Inflammatory disease of prostate, unspecified (principal); B95.62 Methicillin resistant Staphylococcus aureus infection as the cause of diseases classified elsewhere; M00.9 Pyogenic arthritis, unspecified; N13.6 Pyonephrosis; E11.65 Type 2 diabetes mellitus with hyperglycemia; F17.210 Nicotine dependence, cigarettes, uncomplicated; I12.9 Hypertensive chronic kidney disease with stage 1 through stage 4 chronic kidney disease, or unspecified chronic kidney disease; N18.30 Chronic kidney disease, stage 3 unspecified; Z86.19 Personal history of other infectious and parasitic diseases; Z87.81 Personal history of (healed) traumatic fracture; Z79.4 Long term (current) use of insulin; Z87.442 Personal history of urinary calculi; Z95.828 Presence of other vascular implants and grafts
CPT/HCPCS: 80053; 82550; 85025; 86140; 96365; J0878

== ENCOUNTER 2020-10-12 00:16 | Day surgery (SDC) | payer OTHER | END 2020-10-12 16:40 | disposition home or self-care (01) | LOC: ATC 00:16 | DX: N41.9 Inflammatory disease of prostate, unspecified (principal); B95.62 Methicillin resistant Staphylococcus aureus infection as the cause of diseases classified elsewhere; N13.6 Pyonephrosis; M00.9 Pyogenic arthritis, unspecified; Z95.828 Presence of other vascular implants and grafts; E11.65 Type 2 diabetes mellitus with hyperglycemia; F17.210 Nicotine dependence, cigarettes, uncomplicated; I12.9 Hypertensive chronic kidney disease with stage 1 through stage 4 chronic kidney disease, or unspecified chronic kidney disease; N18.30 Chronic kidney disease, stage 3 unspecified; Z86.19 Personal history of other infectious and parasitic diseases; Z87.81 Personal history of (healed) traumatic fracture; Z79.4 Long term (current) use of insulin; Z87.442 Personal history of urinary calculi | CPT/HCPCS: J0878 ==

== ENCOUNTER 2020-10-14 00:10 | Day surgery (SDC) | payer OTHER | END 2020-10-14 15:40 | disposition home or self-care (01) | LOC: ATC 00:10 | DX: N41.9 Inflammatory disease of prostate, unspecified (principal); B95.62 Methicillin resistant Staphylococcus aureus infection as the cause of diseases classified elsewhere; M00.811 Arthritis due to other bacteria, right shoulder; E11.9 Type 2 diabetes mellitus without complications; F17.200 Nicotine dependence, unspecified, uncomplicated; I10 Essential (primary) hypertension; F15.11 Other stimulant abuse, in remission; Z79.4 Long term (current) use of insulin; Z87.891 Personal history of nicotine dependence | CPT/HCPCS: 96365; J0878 ==

== ENCOUNTER 2020-10-18 00:41 | Day surgery (SDC) | payer OTHER | END 2020-10-18 22:45 | disposition home or self-care (01) | LOC: ATC 00:41 | DX: N41.9 Inflammatory disease of prostate, unspecified (principal); B95.62 Methicillin resistant Staphylococcus aureus infection as the cause of diseases classified elsewhere; M00.9 Pyogenic arthritis, unspecified; I12.9 Hypertensive chronic kidney disease with stage 1 through stage 4 chronic kidney disease, or unspecified chronic kidney disease; E11.22 Type 2 diabetes mellitus with diabetic chronic kidney disease; N18.30 Chronic kidney disease, stage 3 unspecified; F15.10 Other stimulant abuse, uncomplicated; Z79.4 Long term (current) use of insulin; Z87.891 Personal history of nicotine dependence; Z87.442 Personal history of urinary calculi | CPT/HCPCS: A9270; J0878 ==

== ENCOUNTER 2020-11-23 03:15 | Day surgery (SDC) | payer OTHER | END 2020-11-23 16:44 | disposition home or self-care (01) | LOC: ATC 03:15 | DX: R89.5 Abnormal microbiological findings in specimens from other organs, systems and tissues (principal); N41.2 Abscess of prostate | CPT/HCPCS: 36415; 36592; 87040; 87077; 87147; 87186 ==

== ENCOUNTER → 2021-04-12 | Outpatient (CLI) | payer OTHER ==
[2021-04-12 17:56] LABS: BASOPHILS PERCENT AUTO 1 % (0-2); EOSINOPHILS ABSOLUTE AUTO 0.27 K/mm3 (0.00-0.68); EOSINOPHILS PERCENT AUTO 3 % (0-6); Hematocrit 39.8 % (37.0-53.0); Hemoglobin 12.9 g/dL (13.5-17.5); IMMATURE GRAN ABSOLUTE AUTO 0.02 K/mm3 (0.00-0.10); IMMATURE GRAN PERCENT AUTO 0 % (0-1); LYMPHOCYTES ABSOLUTE AUTO 2.22 K/mm3 (0.84-5.20); LYMPHOCYTES PERCENT AUTO 22 % (21-46); MONOCYTES ABSOLUTE AUTO 0.66 K/mm3 (0.16-1.47); MONOCYTES PERCENT AUTO 6 % (4-13); Mean Corpuscular HGB 26.3 pg (26.0-34.0); Mean Corpuscular HGB Conc 32.4 g/dL (31.5-36.5); Mean Corpuscular Volume 81 fL (80-100); Mean Platelet Volume 9.1 fL (9.1-12.4); NEUTROPHILS ABSOLUTE AUTO 7.04 K/mm3 (1.96-9.15); NEUTROPHILS PERCENT AUTO 68 % (41-73); Platelet Count 431 K/mm3 (150-400); RDW Coefficient Variation 14.4 % (11.7-14.2); RDW Standard Deviation 42.3 fL (35.1-46.3); Red Blood Cell Count 4.91 M/mm3 (4.30-5.90); White Blood Cell Count 10.31 K/mm3 (4.00-11.30)
[2021-04-12 18:13] LABS: CHOL/HDL RATIO 2.4; Cholesterol 104 mg/dL (50-200); HDL Cholesterol 44 mg/dL (>39); LDL/HDL RATIO 1.2; Low Density Lipoprotein Chol 52 mg/dL (0-110); Triglycerides 40 mg/dL (30-160); Very Low Density Lipoprot Chol 8 mg/dL (6-32)
[2021-04-12 18:17] LABS: Thyroid Stimulating Hormone 0.821 uIU/mL (0.360-4.800)
[2021-04-12 18:53] LABS: Albumin, Blood 3.4 g/dL (3.4-5.0); Albumin/Globulin Ratio 0.6 (0.8-1.8); Bilirubin, Total 0.5 mg/dL (0.1-1.0); Bun/Creatinine Ratio 23.3 (12.0-20.0); Calcium, Blood 9.6 mg/dL (8.5-10.1); Creatinine, Blood 1.8 mg/dL (0.60-1.20); Globulin, Blood 5.7 g/dL (2.2-4.0); Potassium, Blood 4.9 mmol/L (3.5-5.5); Total Protein, Blood 9.1 g/dL (6.4-8.2)
== END | disposition home or self-care (01) ==
LOC: LAB SHORT 15:10 → LAB 15:10
PROVIDERS: Nurse Practitioner Family
DX: I10 Essential (primary) hypertension (principal); E11.65 Type 2 diabetes mellitus with hyperglycemia; N12 Tubulo-interstitial nephritis, not specified as acute or chronic; L02.91 Cutaneous abscess, unspecified
CPT/HCPCS: 80053; 80061; 83036; 84443; 85025; 87070; 87075; 87077; 87147; 87186; 87205

== ENCOUNTER → 2021-10-05 | Outpatient (CLI) | payer OTHER ==
[2021-10-05 16:48] LABS: Source, Urine Clean Catch
[2021-10-05 17:47] LABS: BASOPHILS ABSOLUTE AUTO 0.07 K/mm3 (0.00-0.23); BASOPHILS PERCENT AUTO 1 % (0-2); EOSINOPHILS ABSOLUTE AUTO 0.26 K/mm3 (0.00-0.68); EOSINOPHILS PERCENT AUTO 5 % (0-6); Hematocrit 39.2 % (37.0-53.0); Hemoglobin 12.2 g/dL (13.5-17.5); IMMATURE GRAN ABSOLUTE AUTO 0.01 K/mm3 (0.00-0.10); IMMATURE GRAN PERCENT AUTO 0 % (0-1); LYMPHOCYTES ABSOLUTE AUTO 2.11 K/mm3 (0.84-5.20); LYMPHOCYTES PERCENT AUTO 39 % (21-46); MONOCYTES ABSOLUTE AUTO 0.47 K/mm3 (0.16-1.47); MONOCYTES PERCENT AUTO 9 % (4-13); Mean Corpuscular HGB 26.6 pg (26.0-34.0); Mean Corpuscular HGB Conc 31.1 g/dL (31.5-36.5); Mean Corpuscular Volume 85 fL (80-100); Mean Platelet Volume 10.2 fL (9.1-12.4); NEUTROPHILS ABSOLUTE AUTO 2.53 K/mm3 (1.96-9.15); NEUTROPHILS PERCENT AUTO 46 % (41-73); Platelet Count 300 K/mm3 (150-400); RDW Coefficient Variation 14.7 % (11.7-14.2); RDW Standard Deviation 45.9 fL (35.1-46.3); Red Blood Cell Count 4.59 M/mm3 (4.30-5.90); White Blood Cell Count 5.45 K/mm3 (4.00-11.30)
[2021-10-05 18:11] LABS: Appearance, Urine Hazy (Clear); Bilirubin, Urine Neg (Neg); Blood, Urine 5+ (Neg); Color, Urine Yellow (P-Yellow); Glucose Qualitative, Urine 1+ (Neg); Ketones, Urine Neg (Neg); Leukocyte Esterase, Urine 3+ (Neg); Nitrite, Urine Neg (Neg); Protein, Urine 3+ (Neg); Specific Gravity, Urine 1.015 (1.003-1.022); Urobilinogen, Urine NORM (Normal)
[2021-10-05 19:27] LABS: Bacteria Mod /hpf; Red Blood Cells, Urine TNTC /hpf (0-2); Squamous Epithelial Cells Rare /hpf (Few); Transitional Epithelial Cells Rare /hpf (0-Rare)
[2021-10-05 21:58] LABS: Alanine Aminotransfer (ALT/SGP 56 U/L (12-78); Albumin, Blood 3.4 g/dL (3.4-5.0); Albumin/Globulin Ratio 0.8 (0.8-1.8); Alk Phos 270 U/L (50-136); Anion Gap 8 mmol/L (6-16); Aspartate Aminotrans (AST/SGOT 39 U/L (12-37); Bilirubin, Total 0.5 mg/dL (0.1-1.0); Blood Urea Nitrogen 44 mg/dL (8-24); Bun/Creatinine Ratio 22.1 (12.0-20.0); CHOL/HDL RATIO 2.6; CO2, Blood 24 mmol/L (21-32); Calcium, Blood 8.8 mg/dL (8.5-10.1); Chloride, Blood 106 mmol/L (98-108); Cholesterol 121 mg/dL (50-200); Creatinine, Blood 1.99 mg/dL (0.60-1.20); Globulin, Blood 4.4 g/dL (2.2-4.0); Glomerular Filtration Rate 34 (60-); Glucose, Blood 279 mg/dL (70-99); HDL Cholesterol 47 mg/dL (>39); LDL/HDL RATIO 0.9; Low Density Lipoprotein Chol 41 mg/dL (0-110); Potassium, Blood 4.9 mmol/L (3.5-5.5); Sodium, Blood 138 mmol/L (136-145); Total Protein, Blood 7.8 g/dL (6.4-8.2); Triglycerides 164 mg/dL (30-160); Very Low Density Lipoprot Chol 32 mg/dL (6-32)
== END | disposition home or self-care (01) ==
LOC: LAB SHORT 11:40
PROVIDERS: Nurse Practitioner Family
DX: E11.65 Type 2 diabetes mellitus with hyperglycemia (principal); E11.22 Type 2 diabetes mellitus with diabetic chronic kidney disease; N18.9 Chronic kidney disease, unspecified; L97.909 Non-pressure chronic ulcer of unspecified part of unspecified lower leg with unspecified severity; Z86.16 Personal history of COVID-19
CPT/HCPCS: 80053; 80061; 81001; 82043; 85025; 87086

== ENCOUNTER 2021-11-02 20:45 | Observation (INO) | payer OTHER ==
[~2021-11-02] VITALS: Ht 182.9 cm; Wt 107.4 kg
[2021-11-02 22:00] LABS: BASOPHILS ABSOLUTE AUTO 0.06 K/mm3 (0.00-0.23); BASOPHILS PERCENT AUTO 1 % (0-2); EOSINOPHILS ABSOLUTE AUTO 0.26 K/mm3 (0.00-0.68); EOSINOPHILS PERCENT AUTO 2 % (0-6); Hematocrit 35.2 % (37.0-53.0); Hemoglobin 11.4 g/dL (13.5-17.5); IMMATURE GRAN ABSOLUTE AUTO 0.05 K/mm3 (0.00-0.10); IMMATURE GRAN PERCENT AUTO 1 % (0-1); LYMPHOCYTES ABSOLUTE AUTO 2.32 K/mm3 (0.84-5.20); LYMPHOCYTES PERCENT AUTO 21 % (21-46); MONOCYTES ABSOLUTE AUTO 0.92 K/mm3 (0.16-1.47); MONOCYTES PERCENT AUTO 8 % (4-13); Mean Corpuscular HGB 26.1 pg (26.0-34.0); Mean Corpuscular HGB Conc 32.4 g/dL (31.5-36.5); Mean Corpuscular Volume 81 fL (80-100); NEUTROPHILS ABSOLUTE AUTO 7.29 K/mm3 (1.96-9.15); NEUTROPHILS PERCENT AUTO 67 % (41-73); Platelet Count 372 K/mm3 (150-400); RDW Coefficient Variation 13.8 % (11.7-14.2); Red Blood Cell Count 4.36 M/mm3 (4.30-5.90)
[2021-11-02 22:30] LABS: Albumin, Blood 2.8 g/dL (3.4-5.0); Albumin/Globulin Ratio 0.6 (0.8-1.8); Bilirubin, Total 0.2 mg/dL (0.1-1.0); Bun/Creatinine Ratio 24.1 (12.0-20.0); Calcium, Blood 8.8 mg/dL (8.5-10.1); Creatinine, Blood 1.95 mg/dL (0.60-1.20); Potassium, Blood 5.2 mmol/L (3.5-5.5); Total Protein, Blood 7.8 g/dL (6.4-8.2)
[2021-11-03 00:03] LABS: Source, Urine Clean Catch
[2021-11-03 00:28] LABS: Appearance, Urine Cloudy (Clear); Bilirubin, Urine Neg (Neg); Blood, Urine 5+ (Neg); Glucose Qualitative, Urine 4+ (Neg); Ketones, Urine Neg (Neg); Leukocyte Esterase, Urine 3+ (Neg); Nitrite, Urine Neg (Neg); Protein, Urine 3+ (Neg); Urobilinogen, Urine NORM (Normal)
[2021-11-03 00:56] LABS: Color, Urine Pale Yellow (P-Yellow)
[2021-11-03 00:57] LABS: Bacteria Many /hpf; Red Blood Cells, Urine 25-50 /hpf (0-2); Squamous Epithelial Cells Not Seen /hpf (Few); White Blood Cells, Urine TNTC /hpf (0-5)
[2021-11-03 06:32] LABS: BASOPHILS ABSOLUTE AUTO 0.04 K/mm3 (0.00-0.23); BASOPHILS PERCENT AUTO 1 % (0-2); EOSINOPHILS ABSOLUTE AUTO 0.34 K/mm3 (0.00-0.68); EOSINOPHILS PERCENT AUTO 4 % (0-6); Hematocrit 32.8 % (37.0-53.0); Hemoglobin 10.5 g/dL (13.5-17.5); IMMATURE GRAN ABSOLUTE AUTO 0.04 K/mm3 (0.00-0.10); IMMATURE GRAN PERCENT AUTO 1 % (0-1); LYMPHOCYTES ABSOLUTE AUTO 2.44 K/mm3 (0.84-5.20); LYMPHOCYTES PERCENT AUTO 28 % (21-46); MONOCYTES ABSOLUTE AUTO 0.96 K/mm3 (0.16-1.47); MONOCYTES PERCENT AUTO 11 % (4-13); Mean Corpuscular HGB 26.2 pg (26.0-34.0); Mean Corpuscular Volume 82 fL (80-100); Mean Platelet Volume 8.7 fL (9.1-12.4); NEUTROPHILS PERCENT AUTO 57 % (41-73); Platelet Count 339 K/mm3 (150-400); RDW Coefficient Variation 13.8 % (11.7-14.2); RDW Standard Deviation 41.5 fL (35.1-46.3); Red Blood Cell Count 4.01 M/mm3 (4.30-5.90); White Blood Cell Count 8.82 K/mm3 (4.00-11.30)
[2021-11-03 06:57] LABS: Albumin, Blood 2.5 g/dL (3.4-5.0); Albumin/Globulin Ratio 0.5 (0.8-1.8); Bilirubin, Total 0.2 mg/dL (0.1-1.0); Bun/Creatinine Ratio 21.9 (12.0-20.0); Calcium, Blood 8.1 mg/dL (8.5-10.1); Creatinine, Blood 1.96 mg/dL (0.60-1.20); Globulin, Blood 4.6 g/dL (2.2-4.0); Potassium, Blood 4.5 mmol/L (3.5-5.5); Total Protein, Blood 7.1 g/dL (6.4-8.2)
--- NOTE | 2021-11-03 19:00 | NUR ---
SHIFT SUMMARY PT A&OX4, SLEEPY/WAKES EASILY, PAIN R FLANK/MANAGED WITH 5 MG NORCO, STAND BEDSIDE FOR BSC/VOIDING WELL, BARON PO ADA DIET. PLAN FOR ABX AND PAIN MANAGEMENT. REPORT PROVIDED TO LEW BRUSH.
--- NOTE | 2021-11-04 04:10 | NUR ---
SUMMARY PT SLEPT WELL T/O THE NIGHT. PAIN MANAGED PER EMAR WITH RELIEF. NO NEW ISSUES NOTED. PATIENT VOIDING WITH NOTEABLE DISCOMFORT. CALL LIGHT IN REACH.
[2021-11-04 05:04] LABS: BASOPHILS ABSOLUTE AUTO 0.04 K/mm3 (0.00-0.23); BASOPHILS PERCENT AUTO 1 % (0-2); EOSINOPHILS ABSOLUTE AUTO 0.39 K/mm3 (0.00-0.68); EOSINOPHILS PERCENT AUTO 5 % (0-6); Hematocrit 35.1 % (37.0-53.0); Hemoglobin 11.2 g/dL (13.5-17.5); IMMATURE GRAN ABSOLUTE AUTO 0.03 K/mm3 (0.00-0.10); IMMATURE GRAN PERCENT AUTO 0 % (0-1); LYMPHOCYTES ABSOLUTE AUTO 1.64 K/mm3 (0.84-5.20); LYMPHOCYTES PERCENT AUTO 19 % (21-46); MONOCYTES ABSOLUTE AUTO 0.69 K/mm3 (0.16-1.47); MONOCYTES PERCENT AUTO 8 % (4-13); Mean Corpuscular HGB 25.9 pg (26.0-34.0); Mean Corpuscular HGB Conc 31.9 g/dL (31.5-36.5); Mean Corpuscular Volume 81 fL (80-100); Mean Platelet Volume 8.9 fL (9.1-12.4); NEUTROPHILS ABSOLUTE AUTO 5.72 K/mm3 (1.96-9.15); NEUTROPHILS PERCENT AUTO 67 % (41-73); Platelet Count 362 K/mm3 (150-400); RDW Coefficient Variation 13.7 % (11.7-14.2); RDW Standard Deviation 41.1 fL (35.1-46.3); Red Blood Cell Count 4.32 M/mm3 (4.30-5.90); White Blood Cell Count 8.51 K/mm3 (4.00-11.30)
[2021-11-04 05:22] LABS: Calcium, Blood 8.9 mg/dL (8.5-10.1); Creatinine, Blood 1.95 mg/dL (0.60-1.20); Potassium, Blood 4.8 mmol/L (3.5-5.5)
--- NOTE | 2021-11-04 13:39 | NUR ---
PATIENTS BP 194/95, HEART RATE 66, PATIENT HAS CLAMMY SKIN, STATES THAT HE IS FREEZING, REQUESTED A WARM BLANKET. ROOM TEMP AT 75, AND HAD 4 BLANKETS ALREADY. RN NOTIFIED.
[2021-11-04 18:47] LABS: Vancomycin, Trough 22.8 ug/mL (5.0-10.0)
--- NOTE | 2021-11-04 18:50 | NUR ---
SHIFT SUMMARY PT A&O4, VSS/RA, R FLANK PAIN, 5 MG NORCO/1MG DILAUDID, STAND BEDSIDE TO USE BSC, VOIDING WELL, BARON PO ADA DIET/CGBS COV PER EMAR. REPORT PROVIDED TO KANDIS BRUSH.
--- NOTE | 2021-11-05 04:15 | NUR ---
SHIFT SUMMARY PT REMAIN TO HAVE R SIDE PAIN OVERNIGHT. PAIN MANAGED WITH NORCO AND DILAUDID. TOLERATES IT WELL, PT WILL GET SOME MILD RELIEF FOR FEW HOURS BUT EXPERIENCING SEVERE PAIN WHEN URINATING. PT HAD 1 MED FORMED BOWEL MOVEMENT LAST NIGHT WHICH PROVIDES SOME RELIEF WELL WITH HIS PAIN. TOLERATING PO INTAKE, DENIES NAUSEA AND VOMITING. VOIDING, NO STONES NOTED. AMBULATES INDEPENDENTLY BUT ADVISE TO CALL FOR HELP WHEN GETTING OUT OF BED, SBA FOR SAFETY. VSS. DENIES CHEST PAIN AND SOB. 2 KNEE ABRASION WITH DRESSING, CDI. KPAD FOR HEAT IN ROOM WHICH HELPS WITH PAIN RELIEF WELL. CALL LIGHT WITHIN REACH. WILL CONTINUE TO MONITOR AND WILL PROVIDE REPORT TO ONCOMING NURSE.
[2021-11-05 05:34] LABS: BASOPHILS ABSOLUTE AUTO 0.05 K/mm3 (0.00-0.23); BASOPHILS PERCENT AUTO 1 % (0-2); EOSINOPHILS ABSOLUTE AUTO 0.36 K/mm3 (0.00-0.68); EOSINOPHILS PERCENT AUTO 5 % (0-6); Hematocrit 34.5 % (37.0-53.0); Hemoglobin 11.1 g/dL (13.5-17.5); IMMATURE GRAN ABSOLUTE AUTO 0.03 K/mm3 (0.00-0.10); IMMATURE GRAN PERCENT AUTO 0 % (0-1); LYMPHOCYTES ABSOLUTE AUTO 2.25 K/mm3 (0.84-5.20); LYMPHOCYTES PERCENT AUTO 30 % (21-46); MONOCYTES ABSOLUTE AUTO 0.67 K/mm3 (0.16-1.47); MONOCYTES PERCENT AUTO 9 % (4-13); Mean Corpuscular HGB 26.1 pg (26.0-34.0); Mean Corpuscular HGB Conc 32.2 g/dL (31.5-36.5); Mean Corpuscular Volume 81 fL (80-100); NEUTROPHILS ABSOLUTE AUTO 4.15 K/mm3 (1.96-9.15); NEUTROPHILS PERCENT AUTO 55 % (41-73); Platelet Count 368 K/mm3 (150-400); RDW Coefficient Variation 13.8 % (11.7-14.2); RDW Standard Deviation 40.8 fL (35.1-46.3); Red Blood Cell Count 4.26 M/mm3 (4.30-5.90); White Blood Cell Count 7.51 K/mm3 (4.00-11.30)
[2021-11-05 06:05] LABS: Anion Gap 7 mmol/L (6-16); Blood Urea Nitrogen 38 mg/dL (8-24); CO2, Blood 23 mmol/L (21-32); Calcium, Blood 8.5 mg/dL (8.5-10.1); Chloride, Blood 104 mmol/L (98-108); Glomerular Filtration Rate 34 (60-); Glucose, Blood 350 mg/dL (70-99); Potassium, Blood 4.6 mmol/L (3.5-5.5); Sodium, Blood 134 mmol/L (136-145); Vancomycin, Trough 19.3 ug/mL (5.0-10.0)
[2021-11-05] MEDS ORDERED: PROBIOTIC1 EA13 PO (10:53)
[2021-11-05] MEDS ORDERED: DOXY100 PO (10:53)
[2021-11-05] MEDS ORDERED: ROXICODONE5 MG PO (11:04)
--- NOTE | 2021-11-05 12:50 | NUR ---
DISCHARGE SUMMARY PT GIVEN PAIN MEDICATIONS ORDERED PRIOR TO DISCHARGE. PT TEACHING PERFORMED W/ PT ACKNOWLEDING UNDERSTANDING AND SIGNING WHERE APPROPRIATE. PT'S IV DISCONTINUED. PT ABLE TO GET HIMSELF DRESSED. ROOM FOUND TO BE CLEARED OF BELONGINGS. PT ESCORTED VIA WHEELCHAIR BY STAFF TO HIS VEHICLE WHERE HE TRANSFERRED W/O INCIDENT AND LEFT POV.
== END 2021-11-05 12:40 | disposition home or self-care (01) ==
LOC: ER 20:45 → SURS 20:46
PROVIDERS: Family Medicine; Internal Medicine; Student in an Organized Health Care Education/Training Program; ADMIT Internal Medicine
DX: N13.6 Pyonephrosis (principal); T24.302A Burn of third degree of unspecified site of left lower limb, except ankle and foot, initial encounter; L03.116 Cellulitis of left lower limb; I12.9 Hypertensive chronic kidney disease with stage 1 through stage 4 chronic kidney disease, or unspecified chronic kidney disease; N18.30 Chronic kidney disease, stage 3 unspecified; E10.22 Type 1 diabetes mellitus with diabetic chronic kidney disease; F17.210 Nicotine dependence, cigarettes, uncomplicated; N40.0 Benign prostatic hyperplasia without lower urinary tract symptoms; Z79.4 Long term (current) use of insulin; Z79.899 Other long term (current) drug therapy
CPT/HCPCS: 36415; 74176; 80048; 80053; 80202; 81001; 82947; 83036; 83690; 85025; 87077; 87086; 87147; 87186; 93005; 93010; 96361; 96374; 96375; 96376; 99285-25; A9270; J0360; J0696; J1170; J1650; J1815; J3370; J7030; J7040; J7060

== ENCOUNTER 2022-08-27 03:56 | Emergency (ER) | payer OTHER ==
[~2022-08-27] VITALS: Ht 182.9 cm; Wt 104.3 kg
[~2022-08-27 03:56] MED LIST changes: +DOXY100 PO; +PROBIOTIC1 EA13 PO; +ROXICODONE5 MG PO
[2022-08-27] MEDS ORDERED: FUROSEMIDE40 MG PO (04:31)
[2022-08-27] MEDS ORDERED: INSULIN AS100 UNIT/8 SC (04:31)
[2022-08-27] MEDS ORDERED: METF500C PO (04:33)
[2022-08-27] MEDS ORDERED: GLIM4 PO (04:33)
[2022-08-27 05:49] LABS: BASOPHILS ABSOLUTE AUTO 0.08 K/mm3 (0.00-0.23); BASOPHILS PERCENT AUTO 1 % (0-2); EOSINOPHILS ABSOLUTE AUTO 0.23 K/mm3 (0.00-0.68); EOSINOPHILS PERCENT AUTO 2 % (0-6); Hematocrit 38.2 % (37.0-53.0); Hemoglobin 12.7 g/dL (13.5-17.5); IMMATURE GRAN ABSOLUTE AUTO 0.05 K/mm3 (0.00-0.10); IMMATURE GRAN PERCENT AUTO 0 % (0-1); LYMPHOCYTES ABSOLUTE AUTO 2.07 K/mm3 (0.84-5.20); LYMPHOCYTES PERCENT AUTO 19 % (21-46); MONOCYTES ABSOLUTE AUTO 0.95 K/mm3 (0.16-1.47); MONOCYTES PERCENT AUTO 9 % (4-13); Mean Corpuscular HGB 27.1 pg (26.0-34.0); Mean Corpuscular HGB Conc 33.2 g/dL (31.5-36.5); Mean Corpuscular Volume 82 fL (80-100); Mean Platelet Volume 9.5 fL (9.1-12.4); NEUTROPHILS ABSOLUTE AUTO 7.76 K/mm3 (1.96-9.15); NEUTROPHILS PERCENT AUTO 70 % (41-73); Platelet Count 371 K/mm3 (150-400); RDW Coefficient Variation 13.1 % (11.7-14.2); RDW Standard Deviation 38.7 fL (35.1-46.3); Red Blood Cell Count 4.68 M/mm3 (4.30-5.90); White Blood Cell Count 11.14 K/mm3 (4.00-11.30)
[2022-08-27 06:31] LABS: Bun/Creatinine Ratio 21.2 (12.0-20.0); C-REACTIVE PROTEIN, EXT RANGE 2.73 mg/dL (0.000-0.300); Calcium, Blood 8.5 mg/dL (8.5-10.1); Creatinine, Blood 2.12 mg/dL (0.60-1.20); Potassium, Blood 4.9 mmol/L (3.5-5.5)
== END 2022-08-27 11:09 | disposition short-term general hospital (02) ==
LOC: ER 03:56
PROVIDERS: Student in an Organized Health Care Education/Training Program
DX: T25.222A Burn of second degree of left foot, initial encounter (principal); T25.221A Burn of second degree of right foot, initial encounter; L03.116 Cellulitis of left lower limb; L03.115 Cellulitis of right lower limb; E11.40 Type 2 diabetes mellitus with diabetic neuropathy, unspecified; F17.290 Nicotine dependence, other tobacco product, uncomplicated; X11.8XXA Contact with other hot tap-water, initial encounter; Z79.899 Other long term (current) drug therapy; Z79.4 Long term (current) use of insulin
CPT/HCPCS: 36415; 80048; 82947; 83605; 85025; 86140; 90714; 96361; 96365; 96375; 99284-25; A9270; J0696; J1170; J1815; J2270; J2405; J7030

== ENCOUNTER 2023-02-21 02:18 | Emergency (ER) | payer OTHER ==
[~2023-02-21] VITALS: Ht 182.9 cm; Wt 104.3 kg
[~2023-02-21 02:18] MED LIST changes: +FUROSEMIDE40 MG PO; +GLIM4 PO; +INSULIN AS100 UNIT/8 SC; +METF500C PO
[2023-02-21] MEDS ORDERED: OXYC5 PO (02:46)
[2023-02-21] MEDS ORDERED: Robaxin750 MG PO (05:08)
[2023-02-21] MEDS ORDERED: CEFU500T30 PO (05:08)
[2023-02-21 05:45] VITALS: BP 154/93
[2023-02-22] MEDS ORDERED: Percocet 5-3251 EACH PO (20:42)
== END 2023-02-21 05:50 | disposition home or self-care (01) ==
LOC: ER 02:18
DX: S39.012A Strain of muscle, fascia and tendon of lower back, initial encounter (principal); T25.221A Burn of second degree of right foot, initial encounter; T25.222A Burn of second degree of left foot, initial encounter; G89.29 Other chronic pain; M62.830 Muscle spasm of back; L03.115 Cellulitis of right lower limb; E11.621 Type 2 diabetes mellitus with foot ulcer; F17.290 Nicotine dependence, other tobacco product, uncomplicated; Z79.4 Long term (current) use of insulin; Z79.84 Long term (current) use of oral hypoglycemic drugs; W19.XXXA Unspecified fall, initial encounter
CPT/HCPCS: 71045; 73630; 93005; 93010; 96374; 96375; 96376; 99284-25; A9270; J0696; J1885

== ENCOUNTER 2023-02-22 13:55 | Emergency (ER) | payer OTHER ==
[~2023-02-22] VITALS: Ht 182.9 cm; Wt 104.3 kg
[~2023-02-22 13:55] MED LIST changes: +CEFU500T30 PO; +OXYC5 PO; +Robaxin750 MG PO
[2023-02-22 14:45] LABS: BASOPHILS ABSOLUTE AUTO 0.06 K/mm3 (0.00-0.23); BASOPHILS PERCENT AUTO 0 % (0-2); EOSINOPHILS ABSOLUTE AUTO 0.06 K/mm3 (0.00-0.68); EOSINOPHILS PERCENT AUTO 0 % (0-6); Hematocrit 39.1 % (37.0-53.0); Hemoglobin 13.4 g/dL (13.5-17.5); IMMATURE GRAN ABSOLUTE AUTO 0.09 K/mm3 (0.00-0.10); IMMATURE GRAN PERCENT AUTO 1 % (0-1); LYMPHOCYTES ABSOLUTE AUTO 1.18 K/mm3 (0.84-5.20); LYMPHOCYTES PERCENT AUTO 7 % (21-46); MONOCYTES ABSOLUTE AUTO 1.11 K/mm3 (0.16-1.47); MONOCYTES PERCENT AUTO 7 % (4-13); Mean Corpuscular HGB 28.1 pg (26.0-34.0); Mean Corpuscular HGB Conc 34.3 g/dL (31.5-36.5); Mean Corpuscular Volume 82 fL (80-100); Mean Platelet Volume 9.2 fL (9.1-12.4); NEUTROPHILS ABSOLUTE AUTO 13.89 K/mm3 (1.96-9.15); NEUTROPHILS PERCENT AUTO 85 % (41-73); Platelet Count 297 K/mm3 (150-400); RDW Coefficient Variation 13.3 % (11.7-14.2); Red Blood Cell Count 4.77 M/mm3 (4.30-5.90); White Blood Cell Count 16.39 K/mm3 (4.00-11.30)
[2023-02-22 15:05] LABS: Albumin, Blood 2.3 g/dL (3.4-5.0); Albumin/Globulin Ratio 0.5 (0.8-1.8); Bilirubin, Total 0.8 mg/dL (0.1-1.0); Calcium, Blood 8.6 mg/dL (8.5-10.1); Creatinine, Blood 1.91 mg/dL (0.60-1.20); Globulin, Blood 4.8 g/dL (2.2-4.0); Potassium, Blood 4.3 mmol/L (3.5-5.5); Total Protein, Blood 7.1 g/dL (6.4-8.2)
[2023-02-22 19:16] LABS: Source, Urine Clean Catch
[2023-02-22 19:23] LABS: Appearance, Urine Clear (Clear); Bilirubin, Urine Neg (Neg); Blood, Urine 3+ (Neg); Color, Urine Yellow (P-Yellow); Glucose Qualitative, Urine 3+ (Neg); Ketones, Urine Neg (Neg); Leukocyte Esterase, Urine Neg (Neg); Nitrite, Urine Neg (Neg); Protein, Urine 4+ (Neg); Specific Gravity, Urine 1.015 (1.003-1.022); Urobilinogen, Urine NORM (Normal); pH, Urine 6.5 (5.0-8.0)
[2023-02-22 19:30] LABS: Bacteria Rare /hpf; Squamous Epithelial Cells Rare /hpf (Few); White Blood Cells, Urine 0-2 /hpf (0-5)
[2023-02-22 20:13] VITALS: BP 154/78
[2023-02-22] MEDS ORDERED: Percocet 5-3251 EACH PO (20:42)
[2023-02-22 20:43] LABS: U Amphetamine Screen DETECTED; U Barbituate Screen Not Detected; U Benzodiazapine Screen Not Detected; U Buprenorphine Screen Not Detected; U Cannabinoids Screen Not Detected; U Cocaine Screen DETECTED; U Methadone Screen Not Detected; U Methamphetamine Screen DETECTED; U Opiates Screen DETECTED; U Oxycodone Screen Not Detected; U Phencyclidine Screen Not Detected; U Propoxyphene Screen Not Detected
== END 2023-02-22 20:50 | disposition home or self-care (01) ==
LOC: ER 13:55
PROVIDERS: Emergency Medicine; Physician Assistant
DX: R10.9 Unspecified abdominal pain (principal); R05.9 Cough, unspecified; F17.210 Nicotine dependence, cigarettes, uncomplicated; E11.9 Type 2 diabetes mellitus without complications; Z79.4 Long term (current) use of insulin; Z79.899 Other long term (current) drug therapy
CPT/HCPCS: 80053; 81001; 83690; 85025; 96374; 96375; 99284-25; A9270; J1170; J2405

== ENCOUNTER 2023-02-24 18:33 | Emergency (ER) | payer OTHER ==
[~2023-02-24] VITALS: Ht 185.4 cm; Wt 108.9 kg
[2023-02-24 18:47] VITALS: BP 163/73
[2023-02-24 20:12] LABS: BASOPHILS ABSOLUTE AUTO 0.05 K/mm3 (0.00-0.23); BASOPHILS PERCENT AUTO 0 % (0-2); EOSINOPHILS PERCENT AUTO 1 % (0-6); Hematocrit 39.9 % (37.0-53.0); Hemoglobin 13.2 g/dL (13.5-17.5); IMMATURE GRAN ABSOLUTE AUTO 0.12 K/mm3 (0.00-0.10); IMMATURE GRAN PERCENT AUTO 1 % (0-1); LYMPHOCYTES ABSOLUTE AUTO 0.66 K/mm3 (0.84-5.20); LYMPHOCYTES PERCENT AUTO 5 % (21-46); MONOCYTES ABSOLUTE AUTO 1.25 K/mm3 (0.16-1.47); MONOCYTES PERCENT AUTO 9 % (4-13); Mean Corpuscular HGB 27.7 pg (26.0-34.0); Mean Corpuscular HGB Conc 33.1 g/dL (31.5-36.5); Mean Corpuscular Volume 84 fL (80-100); NEUTROPHILS ABSOLUTE AUTO 11.24 K/mm3 (1.96-9.15); NEUTROPHILS PERCENT AUTO 84 % (41-73); Platelet Count 354 K/mm3 (150-400); RDW Coefficient Variation 13.2 % (11.7-14.2); RDW Standard Deviation 40.7 fL (35.1-46.3); Red Blood Cell Count 4.77 M/mm3 (4.30-5.90); White Blood Cell Count 13.42 K/mm3 (4.00-11.30)
[2023-02-24 20:42] LABS: Ethanol (Alcohol), Blood, Med 5 mg/dL
[2023-02-24 20:55] LABS: Alanine Aminotransfer (ALT/SGP 22 U/L (12-78); Albumin, Blood 2.1 g/dL (3.4-5.0); Albumin/Globulin Ratio 0.4 (0.8-1.8); Alk Phos 251 U/L (50-136); Anion Gap 7 mmol/L (6-16); Aspartate Aminotrans (AST/SGOT 19 U/L (12-37); Bilirubin, Total 0.5 mg/dL (0.1-1.0); Blood Urea Nitrogen 35 mg/dL (8-24); Bun/Creatinine Ratio 14.1 (12.0-20.0); CO2, Blood 21 mmol/L (21-32); Calcium, Blood 8.4 mg/dL (8.5-10.1); Chloride, Blood 102 mmol/L (98-108); Creatinine, Blood 2.49 mg/dL (0.60-1.20); Globulin, Blood 4.9 g/dL (2.2-4.0); Glomerular Filtration Rate 29 (60-); Glucose, Blood 250 mg/dL (70-99); Potassium, Blood 4.8 mmol/L (3.5-5.5); Sodium, Blood 130 mmol/L (136-145)
[2023-02-24 20:56] LABS: Acetaminophen, Random <2.0 ug/mL (10.0-30.0)
== END 2023-02-24 22:33 | disposition home or self-care (01) ==
LOC: ER 18:33
PROVIDERS: Emergency Medicine
DX: T40.601A Poisoning by unspecified narcotics, accidental (unintentional), initial encounter (principal); E11.22 Type 2 diabetes mellitus with diabetic chronic kidney disease; N18.9 Chronic kidney disease, unspecified; G89.29 Other chronic pain; M54.50 Low back pain, unspecified; Z87.442 Personal history of urinary calculi; X58.XXXA Exposure to other specified factors, initial encounter; Z79.4 Long term (current) use of insulin; Z79.899 Other long term (current) drug therapy; F17.210 Nicotine dependence, cigarettes, uncomplicated
CPT/HCPCS: 72100; 80053; 85025; 93005; 93010; 96374; 99285-25; A9270; G0480; J1885; J7030

== ENCOUNTER 2023-03-02 14:26 | Inpatient (IN) | payer OTHER ==
[~2023-03-02] VITALS: Ht 195.6 cm; Wt 96.6 kg
[2023-03-02 16:17] LABS: BASOPHILS ABSOLUTE AUTO 0.05 K/mm3 (0.00-0.23); BASOPHILS PERCENT AUTO 0 % (0-2); EOSINOPHILS ABSOLUTE AUTO 0.02 K/mm3 (0.00-0.68); EOSINOPHILS PERCENT AUTO 0 % (0-6); Hematocrit 41.8 % (37.0-53.0); Hemoglobin 14.9 g/dL (13.5-17.5); IMMATURE GRAN ABSOLUTE AUTO 0.13 K/mm3 (0.00-0.10); IMMATURE GRAN PERCENT AUTO 1 % (0-1); LYMPHOCYTES PERCENT AUTO 4 % (21-46); MONOCYTES ABSOLUTE AUTO 1.42 K/mm3 (0.16-1.47); MONOCYTES PERCENT AUTO 8 % (4-13); Mean Corpuscular HGB 27.9 pg (26.0-34.0); Mean Corpuscular HGB Conc 35.6 g/dL (31.5-36.5); Mean Corpuscular Volume 78 fL (80-100); Mean Platelet Volume 9.2 fL (9.1-12.4); NEUTROPHILS ABSOLUTE AUTO 15.17 K/mm3 (1.96-9.15); NEUTROPHILS PERCENT AUTO 87 % (41-73); Platelet Count 467 K/mm3 (150-400); RDW Coefficient Variation 13.2 % (11.7-14.2); Red Blood Cell Count 5.35 M/mm3 (4.30-5.90); White Blood Cell Count 17.49 K/mm3 (4.00-11.30)
[2023-03-02 16:44] LABS: Albumin, Blood 2.2 g/dL (3.4-5.0); Albumin/Globulin Ratio 0.4 (0.8-1.8); Bilirubin, Total 1.9 mg/dL (0.1-1.0); Bun/Creatinine Ratio 30.7 (12.0-20.0); Calcium, Blood 8.7 mg/dL (8.5-10.1); Creatinine, Blood 3.32 mg/dL (0.60-1.20); Globulin, Blood 4.9 g/dL (2.2-4.0); Potassium, Blood 4.5 mmol/L (3.5-5.5); Total Protein, Blood 7.1 g/dL (6.4-8.2)
[2023-03-02 19:02] LABS: Magnesium, Blood 2.8 mg/dL (1.6-2.4)
[2023-03-02 19:19] LABS: Thyroid Stimulating Hormone 0.249 uIU/mL (0.360-4.800)
[2023-03-02 19:20] LABS: Acetaminophen, Random <2.0 ug/mL (10.0-30.0); Beta-hydroxybutyrate 21.2 mg/dL (0.2-2.8); Ethanol (Alcohol), Blood, Med <3 mg/dL; Phosphorus, Blood 5.9 mg/dL (2.5-4.9)
[2023-03-02 22:12] LABS: PCO2 Venous 35.2 mmHg (38-42); pH Blood Venous 7.25 (7.34-7.37)
[2023-03-02 22:13] LABS: Base Excess Venous -11.6 mmol/L; Bicarbonate Venous 16.1 mmol/L (24.0-30.0)
[2023-03-03] VITALS (18 sets, daily range): BP systolic 138–210; BP diastolic 74–101
[2023-03-03 05:44] LABS: BASOPHILS ABSOLUTE AUTO 0.03 K/mm3 (0.00-0.23); BASOPHILS PERCENT AUTO 0 % (0-2); EOSINOPHILS ABSOLUTE AUTO 0.07 K/mm3 (0.00-0.68); EOSINOPHILS PERCENT AUTO 0 % (0-6); Hematocrit 38.4 % (37.0-53.0); Hemoglobin 13.7 g/dL (13.5-17.5); IMMATURE GRAN PERCENT AUTO 1 % (0-1); LYMPHOCYTES ABSOLUTE AUTO 0.67 K/mm3 (0.84-5.20); LYMPHOCYTES PERCENT AUTO 4 % (21-46); MONOCYTES ABSOLUTE AUTO 1.17 K/mm3 (0.16-1.47); MONOCYTES PERCENT AUTO 7 % (4-13); Mean Corpuscular HGB 27.8 pg (26.0-34.0); Mean Corpuscular HGB Conc 35.7 g/dL (31.5-36.5); Mean Corpuscular Volume 78 fL (80-100); Mean Platelet Volume 9.2 fL (9.1-12.4); NEUTROPHILS ABSOLUTE AUTO 13.68 K/mm3 (1.96-9.15); NEUTROPHILS PERCENT AUTO 87 % (41-73); Platelet Count 490 K/mm3 (150-400); RDW Coefficient Variation 13.1 % (11.7-14.2); Red Blood Cell Count 4.93 M/mm3 (4.30-5.90); White Blood Cell Count 15.72 K/mm3 (4.00-11.30)
[2023-03-03 06:11] LABS: Albumin/Globulin Ratio 0.4 (0.8-1.8); Bilirubin, Total 1.6 mg/dL (0.1-1.0); Bun/Creatinine Ratio 30.6 (12.0-20.0); Calcium, Blood 8.2 mg/dL (8.5-10.1); Creatinine, Blood 3.53 mg/dL (0.60-1.20); Globulin, Blood 4.7 g/dL (2.2-4.0); Potassium, Blood 4.3 mmol/L (3.5-5.5); Total Protein, Blood 6.7 g/dL (6.4-8.2)
[2023-03-03 06:30] LABS: Source, Urine Straight Cath
[2023-03-03 06:34] LABS: Appearance, Urine Hazy (Clear); Bilirubin, Urine Neg (Neg); Blood, Urine 5+ (Neg); Color, Urine Yellow (P-Yellow); Glucose Qualitative, Urine 2+ (Neg); Ketones, Urine Neg (Neg); Leukocyte Esterase, Urine Neg (Neg); Nitrite, Urine Neg (Neg); Protein, Urine 3+ (Neg); Urobilinogen, Urine NORM (Normal)
[2023-03-03 07:08] LABS: Hyaline Casts 0-2 /lpf (0-2)
[2023-03-03 07:10] LABS: Bacteria Many /hpf
[2023-03-03 07:11] LABS: Red Blood Cells, Urine 25-50 /hpf (0-2)
[2023-03-03 07:12] LABS: Mucus Light (0-Heavy); Squamous Epithelial Cells Rare /hpf (Few)
--- NOTE | 2023-03-03 08:23 | NUR ---
AM ASSESSMENT. PT A/O X'4, PT HAS INCREASED PAIN/REDNESS/WARMTH TO LLE, OUTLINED W/SURGICAL MARKER. AFEBRILE. ALL OTHER VSS. PT FEELS ACHY, ORDER FOR 650MG TYLENOL Q6 FROM MD. PT UP TO BATHROOM SBA FOR ASSISTANCE W/LINES. VOIDING W/O DIFFICULTY. FLUIDS TO TKO PER MD VERBAL ORDER. ABX RUNNING AT THIS TIME.
--- NOTE | 2023-03-03 08:59 | NUR ---
AM ASSESSMENT PT SLEEPING BUT WAKENS TO VERBAL STIMULI. A/O TO SELF AT THIS TIME HE FALLS BACK ASLEEP EASILY. WAS ABLE TO TAKE PILLS WHOLE WITH WATER W/O DIFFICULTY. DENIES PAIN AT THIS TIME. LUNGS CLEAR, DENIES CP OR SOB.
[2023-03-03 12:06] LABS: Base Excess Venous -8.3 mmol/L; Bicarbonate Venous 18.6 mmol/L (24.0-30.0); PCO2 Venous 32.4 mmHg (38-42); pH Blood Venous 7.34 (7.34-7.37)
[2023-03-03 12:29] LABS: Free Thyroxine 1.22 ng/dL (0.70-1.60); Triiodothyronine, Free 1.04 pg/mL (2.18-3.98)
[2023-03-03 13:11] LABS: Albumin, Blood 1.7 g/dL (3.4-5.0); Anion Gap 13 mmol/L (6-16); Blood Urea Nitrogen 112 mg/dL (8-24); CO2, Blood 15 mmol/L (21-32); Calcium, Blood 7.8 mg/dL (8.5-10.1); Chloride, Blood 100 mmol/L (98-108); Creatinine, Blood 3.73 mg/dL (0.60-1.20); Glomerular Filtration Rate 18 (60-); Glucose, Blood 289 mg/dL (70-99); Phosphorus, Blood 6.9 mg/dL (2.5-4.9); Potassium, Blood 4.3 mmol/L (3.5-5.5); Prostate Specific Antigen 0.227 ng/mL (0.000-4.000); Sodium, Blood 128 mmol/L (136-145); Thyroid Stimulating Hormone 0.397 uIU/mL (0.360-4.800); Uric Acid, Blood 13.1 mg/dL (3.5-7.2)
[2023-03-03 13:18] LABS: U Amphetamine Screen DETECTED; U Barbituate Screen Not Detected; U Benzodiazapine Screen Not Detected; U Buprenorphine Screen Not Detected; U Cannabinoids Screen Not Detected; U Cocaine Screen Not Detected; U Methadone Screen DETECTED; U Methamphetamine Screen DETECTED; U Opiates Screen Not Detected; U Oxycodone Screen Not Detected; U Phencyclidine Screen Not Detected; U Propoxyphene Screen Not Detected
--- NOTE | 2023-03-03 15:23 | NUR ---
DR SOSA IN FOR CONSULT AT APROX 1430, NO NEED TO KEEP PT NPO DR DAVIS CONSULT CALLED AND NEW LABS AND FLUIDS ORDERED. PT CONTINUES TO BE ALERT TO SELF AND FAMILY BUT FALLS BACK ASLEEP EASILY.
--- NOTE | 2023-03-03 16:21 | NUR ---
PT WITH INCREASED LOC. REPOSITIONED IN BED. REQUESTING PO FLUIDS AND FOOD, TOLERATING WELL. NEW FLUIDS PER EMAR STARTED.
[2023-03-03 17:55] LABS: Osmolality, Serum 317 mos/KG (275-300)
--- NOTE | 2023-03-03 18:33 | NUR ---
SHIFT SUMMARY PT HAS INCREASED IN LOC T/O SHIFT. PT TOLERATING ADA DIET AND PO FLUIDS. PT PAINFUL W/REPOSITION BUT HE CONTINUES TO FALL BACK ASLEEP QUICKLY AND APPEARS TO REST COMFORTABLY HAS NOT BEEN MEDICATED FOR PAIN. CONDOM CATH IN PLACE, 300ML DARK CRISTOBAL URINE OUT THIS SHIFT.
[2023-03-03 20:36] LABS: Vancomycin, Random 15.2 ug/mL
[2023-03-04] VITALS: BP 160/90
[2023-03-04 03:00] VITALS: BP 150/81
[2023-03-04 03:57] LABS: BASOPHILS ABSOLUTE AUTO 0.04 K/mm3 (0.00-0.23); BASOPHILS PERCENT AUTO 0 % (0-2); EOSINOPHILS ABSOLUTE AUTO 0.22 K/mm3 (0.00-0.68); EOSINOPHILS PERCENT AUTO 2 % (0-6); Hematocrit 32.3 % (37.0-53.0); Hemoglobin 11.5 g/dL (13.5-17.5); IMMATURE GRAN ABSOLUTE AUTO 0.08 K/mm3 (0.00-0.10); IMMATURE GRAN PERCENT AUTO 1 % (0-1); LYMPHOCYTES ABSOLUTE AUTO 1.25 K/mm3 (0.84-5.20); LYMPHOCYTES PERCENT AUTO 9 % (21-46); MONOCYTES ABSOLUTE AUTO 1.08 K/mm3 (0.16-1.47); MONOCYTES PERCENT AUTO 8 % (4-13); Mean Corpuscular HGB 27.7 pg (26.0-34.0); Mean Corpuscular HGB Conc 35.6 g/dL (31.5-36.5); Mean Corpuscular Volume 78 fL (80-100); Mean Platelet Volume 9.6 fL (9.1-12.4); NEUTROPHILS ABSOLUTE AUTO 10.71 K/mm3 (1.96-9.15); NEUTROPHILS PERCENT AUTO 80 % (41-73); Platelet Count 457 K/mm3 (150-400); RDW Coefficient Variation 13.1 % (11.7-14.2); RDW Standard Deviation 37.1 fL (35.1-46.3); Red Blood Cell Count 4.15 M/mm3 (4.30-5.90); White Blood Cell Count 13.38 K/mm3 (4.00-11.30)
[2023-03-04 04:07] LABS: Albumin, Blood 1.7 g/dL (3.4-5.0); Anion Gap 11 mmol/L (6-16); Blood Urea Nitrogen 112 mg/dL (8-24); Bun/Creatinine Ratio 28.9 (12.0-20.0); CO2, Blood 18 mmol/L (21-32); Calcium, Blood 7.5 mg/dL (8.5-10.1); Chloride, Blood 101 mmol/L (98-108); Creatinine, Blood 3.88 mg/dL (0.60-1.20); Glomerular Filtration Rate 17 (60-); Glucose, Blood 200 mg/dL (70-99); Phosphorus, Blood 6.1 mg/dL (2.5-4.9); Potassium, Blood 3.9 mmol/L (3.5-5.5); Sodium, Blood 130 mmol/L (136-145)
[2023-03-04 08:00] VITALS: BP 146/83
[2023-03-04 11:34] VITALS: BP 172/90
--- NOTE | 2023-03-04 13:14 | NUR ---
ASSUMED CARE OF PT AT 0700 THIS AM. BICARB GTT RUNNING PER MD ORDERS. PT C/O BACK PAIN. DISCUSSED WITH DR COHEN ON ROUNDS THIS AM, NEW ORDERS RECEIVED. MRI SCREENING COMPLETED AND VERIFIED WITH PT AND HIS S.O. PAIN MEDICATION ORDERED IS NORCO, DOES NOT APPEAR TO BE EFFECTIVE, DR COHEN NOTIFIED AND DOSAGE INCREASED FROM 1 TAB Q 4 PRN TO 2 TABS Q 4 PRN. ATTEMPTED TO GET PT OOB WITH GAIT BELT AND 2 STAFF ASSIST, PT UNABLE TO SUPPORT HIS WT AND STAND. PT BACK TO BED, NOT SAFE TO BE OOB AT THIS TIME. WILL REQUEST PT/OT. AWAITING MRI THIS AFTERNOON. PT IS ABLE TO USE CALL LIGHT, CALL IGHT IN REACH, WILL CONTINUE TO MONITOR.
[2023-03-04 16:43] VITALS: BP 159/88
--- NOTE | 2023-03-04 17:29 | NUR ---
PT BLADDER SCANNED FOR >1000ML, PT ATTEMPTED TO VOID, ONLY RESULTED IN 350ML. EXPLAINED TO PT THE NEED TO PLACE A CATHETER TO OBTAIN URINE SAMPLES AND COLLECT 24HR URINE PER DR DAVIS'S ORDERS. PT REFUSES CATHETER DESPITE THIS RN EXPLAINING THE IMPORTANCE OF THE ORDERED TESTS, ACCURATE I&Os, AND EMPTYING THE BLADDER TO AVOID FURTHER KIDNEY DAMAGE. EXPLAINED TO PT THAT HIS KIDNEYS ARE IN VERY BAD CONDITION AND THAT A CATHETER WILL HELP DRAIN HIS URINE AND HELP HIS KIDNEYS. PT CONTINUES TO REFUSE. PT'S S.O. AT BEDSIDE FOR THIS DISCUSSION. DID NOT PLACE CATHETER. PT'S PAIN APPEARS TO BE BETTER CONTROLLED THIS AFTERNOON. PT TO MRI@1730. BPs IMPROVED WITH BETTER PAIN CONTROL. WILL CONTINUE TO MONITOR.
[2023-03-04 20:45] VITALS: BP 156/96
[2023-03-04 22:09] LABS: Source, Urine Straight Cath
[2023-03-04 22:12] LABS: Bilirubin, Urine Neg (Neg); Blood, Urine 5+ (Neg); Glucose Qualitative, Urine 2+ (Neg); Ketones, Urine Neg (Neg); Leukocyte Esterase, Urine Neg (Neg); Nitrite, Urine Neg (Neg); Protein, Urine 3+ (Neg); Specific Gravity, Urine 1.015 (1.003-1.022); Urobilinogen, Urine NORM (Normal)
--- NOTE | 2023-03-04 22:39 | NUR ---
CHANGES FROM PREVIOUS SHIFT: PATIENT IS NOW NO LONGER ON ROCEPHIN, PAIN MEDICATION INCREASED, MRI OBTAINED + FLUID COLLECTION CAUSING SEVERE SPINAL STENOSIS, WHICH MAY BE CAUSING NOW THE INABILITY TO VOID. PATIENT REFUSING STRAIGHT CATH, OK FOR 1 TIME INDWELLING. EDUCATED ON POLICY AND PROCEDURE FOR >25MINUTES, PATIENT STILL VERY ADAMENT, INDWELLING VALENCIA INPLACE FOR ACUTE RETENTION ACUTE I/O PATIENT. ALERT AND ORIENTED, SLEEPY BUT AROUSABLE, SIGNIFICANT PAIN TREATED SEE MAR, PATIENT MUCH IMPROVED. HAS BEEN SLEEPING WELL. TOLERATED VALENCIA WELL. URINE ON ICE. PATIENT IS GOING TO BE COBRA TRANSFERRED TO HOSPITAL WITH NEURO. PATIETN AGREEABLE. PADMINI S/O INFORMED OF SITUATION AND POTENTIAL.
[2023-03-04 23:29] LABS: Appearance, Urine Hazy (Clear); Color, Urine Yellow (P-Yellow)
[2023-03-04 23:31] LABS: Bacteria Mod /hpf; Granular Casts 0-2 /lpf (0); Red Blood Cells, Urine 25-50 /hpf (0-2); Squamous Epithelial Cells Not Seen /hpf (Few)
[2023-03-05 00:15] VITALS: BP 150/87
--- NOTE | 2023-03-05 03:14 | NUR ---
PROVIDENCE/EOS: REPORT HAS BEEN GIVEN TO RN AT [facility] CB #[phone]. NO QUESTIONS FROM RECIEVING RN. ONLY CHANGES FROM ASSUMPTION OF CARE WAS SOME MINOR DECREASE TO BLE, VSS. PATIENT HAS BEEN COOPERATIVE AGREED TO TRANSPORT EDCUCATED ON SAFETY AND REASON. POTENTIAL RISKS WITH TRANSPORT, PATIENT AWARE OF SEVERITY OF SITUATION. PATIENT WITH DECREASED ABILITY TO URINATE, CHRONIC VALENCIA PLACED DUE TO PATIENT NOT WANTING STRAIGHT CATH MMULTIPLE TIMES, AND ACCURATE I/O. PATIENT TOLERATED WELL. NO FURTHER CONCERNS FROM THIS RN
[2023-03-05 05:20] VITALS: BP 158/87
--- NOTE | 2023-03-05 05:50 | NUR ---
REPORT GIVEN TO EMS NO QUESTIONS KARDEX PROVIDED. PATIENT MEDICATED FOR PAIN FOR TRIP. PATIENT NO CHANGE FROM EOS. AWARE OF SITUATION. ABLE TO MAKE NEEDS KNOWN.
== END 2023-03-05 05:40 | disposition short-term general hospital (02) | DRG 871 ==
LOC: ER 14:26 → PCU 22:22 → ERHOLD 22:22 → PCU 03-03 02:24
PROVIDERS: Emergency Medicine; Family Medicine; Internal Medicine Nephrology; Nurse Practitioner Acute Care; ADMIT Internal Medicine
DX: A41.02 Sepsis due to Methicillin resistant Staphylococcus aureus (principal); G92.8 Other toxic encephalopathy; E87.1 Hypo-osmolality and hyponatremia; N17.9 Acute kidney failure, unspecified; E87.20 Acidosis, unspecified; R65.20 Severe sepsis without septic shock; G89.4 Chronic pain syndrome; I12.9 Hypertensive chronic kidney disease with stage 1 through stage 4 chronic kidney disease, or unspecified chronic kidney disease; I16.0 Hypertensive urgency; N18.9 Chronic kidney disease, unspecified; M54.50 Low back pain, unspecified; F15.10 Other stimulant abuse, uncomplicated; E87.70 Fluid overload, unspecified; R60.1 Generalized edema; R79.89 Other specified abnormal findings of blood chemistry; E11.22 Type 2 diabetes mellitus with diabetic chronic kidney disease; D69.6 Thrombocytopenia, unspecified; E83.39 Other disorders of phosphorus metabolism; R80.9 Proteinuria, unspecified; R94.6 Abnormal results of thyroid function studies; D63.1 Anemia in chronic kidney disease; F17.290 Nicotine dependence, other tobacco product, uncomplicated; Z79.899 Other long term (current) drug therapy; Z79.4 Long term (current) use of insulin; Z79.891 Long term (current) use of opiate analgesic; Z87.442 Personal history of urinary calculi; Z98.890 Other specified postprocedural states; Z79.2 Long term (current) use of antibiotics; Z91.148 Patient's other noncompliance with medication regimen for other reason
CPT/HCPCS: 36415; 70450; 71045; 72148; 74177; 80053; 80069; 80202; 81001; 82010; 82140; 82533; 82550; 82803; 82947; 83036; 83605; 83690; 83735; 83880; 83930; 84100; 84439; 84443; 84481; 84550; 85025; 87040; 87077; 87086; 87147; 87186; 93306; 96361; 96365-59; 96366; 96368; 96375; 99285-25; A9270; C1751; G0103; G0480; J0360; J0696; J1644; J1815; J1940; J3370; J7030; J7050; Q9967

== ENCOUNTER → 2023-06-22 | Emergency (ER) | payer OTHER ==
[~2023-06-22] VITALS: Ht 182.9 cm; Wt 92.1 kg
[2023-06-22 14:19] LABS: Albumin/Globulin Ratio 0.7 (0.8-1.8); Bilirubin, Total 0.2 mg/dL (0.1-1.0); Bun/Creatinine Ratio 30.7 (12.0-20.0); Calcium, Blood 7.7 mg/dL (8.5-10.1); Creatinine, Blood 3.16 mg/dL (0.60-1.20); Globulin, Blood 4.4 g/dL (2.2-4.0); Potassium, Blood 3.6 mmol/L (3.5-5.5); Total Protein, Blood 7.4 g/dL (6.4-8.2)
[2023-06-22 14:23] LABS: BASOPHILS ABSOLUTE AUTO 0.07 K/mm3 (0.00-0.23); BASOPHILS PERCENT AUTO 1 % (0-2); EOSINOPHILS ABSOLUTE AUTO 0.21 K/mm3 (0.00-0.68); EOSINOPHILS PERCENT AUTO 2 % (0-6); Hematocrit 29.3 % (37.0-53.0); Hemoglobin 9.6 g/dL (13.5-17.5); IMMATURE GRAN ABSOLUTE AUTO 0.04 K/mm3 (0.00-0.10); IMMATURE GRAN PERCENT AUTO 0 % (0-1); LYMPHOCYTES ABSOLUTE AUTO 1.41 K/mm3 (0.84-5.20); LYMPHOCYTES PERCENT AUTO 13 % (21-46); MONOCYTES ABSOLUTE AUTO 0.71 K/mm3 (0.16-1.47); MONOCYTES PERCENT AUTO 7 % (4-13); Mean Corpuscular HGB 27.3 pg (26.0-34.0); Mean Corpuscular HGB Conc 32.8 g/dL (31.5-36.5); Mean Corpuscular Volume 83 fL (80-100); Mean Platelet Volume 9.4 fL (9.1-12.4); NEUTROPHILS ABSOLUTE AUTO 8.19 K/mm3 (1.96-9.15); NEUTROPHILS PERCENT AUTO 77 % (41-73); Platelet Count 377 K/mm3 (150-400); RDW Coefficient Variation 13.5 % (11.7-14.2); RDW Standard Deviation 41.1 fL (35.1-46.3); Red Blood Cell Count 3.52 M/mm3 (4.30-5.90); White Blood Cell Count 10.63 K/mm3 (4.00-11.30)
[2023-06-22 15:45] VITALS: BP 147/92
== END ==
LOC: ER 12:47
PROVIDERS: Emergency Medicine
DX: S82.831A Other fracture of upper and lower end of right fibula, initial encounter for closed fracture (principal); S01.01XA Laceration without foreign body of scalp, initial encounter; M25.512 Pain in left shoulder; M79.601 Pain in right arm; E11.9 Type 2 diabetes mellitus without complications; G89.3 Neoplasm related pain (acute) (chronic); F17.210 Nicotine dependence, cigarettes, uncomplicated; Z79.4 Long term (current) use of insulin; Z79.84 Long term (current) use of oral hypoglycemic drugs; Z79.899 Other long term (current) drug therapy; Y00.XXXA Assault by blunt object, initial encounter
CPT/HCPCS: 12001; 29505; 70450; 73060; 73090; 73552; 73590; 80053; 85025; 96374-59; 96375-59; 99285-25; A9270; J2270; J2405

== ENCOUNTER → 2024-01-04 | Outpatient (CLI) | payer OTHER ==
[2024-01-04 19:59] LABS: U Amphetamine Screen DETECTED; U Barbituate Screen Not Detected; U Benzodiazapine Screen Not Detected; U Buprenorphine Screen Not Detected; U Cannabinoids Screen Not Detected; U Cocaine Screen Not Detected; U Methadone Screen Not Detected; U Methamphetamine Screen DETECTED; U Opiates Screen DETECTED; U Oxycodone Screen DETECTED; U Phencyclidine Screen Not Detected
[2024-01-09 20:56] LABS: AMPHETAMINE,URN,QUANT 2731 ng/mL; MDA,URN,QUANT <200 ng/mL; MDEA,URN,QUANT <200 ng/mL; MDMA,URN,QUANT <200 ng/mL; METHAMPHETAMINE,URN,QUANT >10000 ng/mL; PHENTERMINE,URN,QUANT <200 ng/mL
[2024-01-09 22:35] LABS: 6-ACETYLMORPHINE, URN, QUANT <10 ng/mL; CODEINE, URN, QUANT <20 ng/mL; HYDROCODONE, URN, QUANT 229 ng/mL; HYDROMORPHONE, URN, QUANT <20 ng/mL; MORPHINE, URN, QUANT <20 ng/mL; NORHYDROCODONE, URN, QUANT 138 ng/mL; NOROXYCODONE, URN, QUANT 240 ng/mL; NOROXYMORPHONE, URN, QUANT <20 ng/mL; OXYCODONE, URN, QUANT 222 ng/mL; OXYMORPHONE, URN, QUANT <20 ng/mL
== END ==
LOC: LAB 16:24 → LAB SHORT 16:24
PROVIDERS: Family Medicine
DX: R89.2 Abnormal level of other drugs, medicaments and biological substances in specimens from other organs, systems and tissues (principal)
CPT/HCPCS: G0480

== ENCOUNTER 2024-01-10 02:42 | Day surgery (SDC) | payer OTHER | END 2024-01-10 23:10 | disposition home or self-care (01) | LOC: WOUND 02:42 | DX: E11.621 Type 2 diabetes mellitus with foot ulcer (principal); L97.412 Non-pressure chronic ulcer of right heel and midfoot with fat layer exposed; L97.422 Non-pressure chronic ulcer of left heel and midfoot with fat layer exposed; E11.40 Type 2 diabetes mellitus with diabetic neuropathy, unspecified; E11.52 Type 2 diabetes mellitus with diabetic peripheral angiopathy with gangrene | CPT/HCPCS: G0463 ==

== ENCOUNTER 2024-01-14 03:13 | Day surgery (SDC) | payer OTHER | END 2024-01-14 23:16 | disposition home or self-care (01) | LOC: WOUND 03:13 | DX: E11.621 Type 2 diabetes mellitus with foot ulcer (principal); L97.412 Non-pressure chronic ulcer of right heel and midfoot with fat layer exposed; L97.512 Non-pressure chronic ulcer of other part of right foot with fat layer exposed; L97.422 Non-pressure chronic ulcer of left heel and midfoot with fat layer exposed; L97.522 Non-pressure chronic ulcer of other part of left foot with fat layer exposed; E11.40 Type 2 diabetes mellitus with diabetic neuropathy, unspecified | CPT/HCPCS: G0463 ==

== ENCOUNTER 2024-01-28 06:41 | Day surgery (SDC) | payer OTHER ==
[2024-01-28] MEDS ORDERED: Lidocaine HCl 4% Cream 5 GM ONE (15:30)
== END 2024-01-28 23:59 | disposition home or self-care (01) ==
LOC: WOUND 06:41
DX: E11.621 Type 2 diabetes mellitus with foot ulcer (principal); L97.412 Non-pressure chronic ulcer of right heel and midfoot with fat layer exposed; L97.422 Non-pressure chronic ulcer of left heel and midfoot with fat layer exposed; E11.40 Type 2 diabetes mellitus with diabetic neuropathy, unspecified; E11.51 Type 2 diabetes mellitus with diabetic peripheral angiopathy without gangrene
CPT/HCPCS: A9270

== ENCOUNTER 2024-02-06 21:41 | Inpatient (IN) | payer OTHER ==
[~2024-02-06] VITALS: Ht 182.9 cm; Wt 107.0 kg
[2024-02-06 22:34] LABS: BASOPHILS ABSOLUTE AUTO 0.05 K/mm3 (0.00-0.23); BASOPHILS PERCENT AUTO 1 % (0-2); EOSINOPHILS ABSOLUTE AUTO 0.27 K/mm3 (0.00-0.68); EOSINOPHILS PERCENT AUTO 3 % (0-6); Hematocrit 27.3 % (37.0-53.0); Hemoglobin 8.5 g/dL (13.5-17.5); IMMATURE GRAN ABSOLUTE AUTO 0.02 K/mm3 (0.00-0.10); IMMATURE GRAN PERCENT AUTO 0 % (0-1); LYMPHOCYTES ABSOLUTE AUTO 1.48 K/mm3 (0.84-5.20); LYMPHOCYTES PERCENT AUTO 14 % (21-46); MONOCYTES ABSOLUTE AUTO 0.92 K/mm3 (0.16-1.47); MONOCYTES PERCENT AUTO 9 % (4-13); Mean Corpuscular HGB 26.3 pg (26.0-34.0); Mean Corpuscular HGB Conc 31.1 g/dL (31.5-36.5); Mean Corpuscular Volume 85 fL (80-100); Mean Platelet Volume 8.6 fL (9.1-12.4); NEUTROPHILS ABSOLUTE AUTO 7.79 K/mm3 (1.96-9.15); NEUTROPHILS PERCENT AUTO 74 % (41-73); Platelet Count 429 K/mm3 (150-400); RDW Coefficient Variation 14.3 % (11.7-14.2); RDW Standard Deviation 43.7 fL (35.1-46.3); Red Blood Cell Count 3.23 M/mm3 (4.30-5.90); White Blood Cell Count 10.53 K/mm3 (4.00-11.30)
[2024-02-06 22:53] LABS: Albumin, Blood 2.6 g/dL (3.4-5.0); Albumin/Globulin Ratio 0.4 (0.8-1.8); Bilirubin, Total 0.2 mg/dL (0.1-1.0); Bun/Creatinine Ratio 12.1 (12.0-20.0); Calcium, Blood 8.1 mg/dL (8.5-10.1); Creatinine, Blood 3.72 mg/dL (0.60-1.20); Globulin, Blood 5.9 g/dL (2.2-4.0); Potassium, Blood 4.8 mmol/L (3.5-5.5); Total Protein, Blood 8.5 g/dL (6.4-8.2)
[2024-02-07] MEDS ORDERED: ACET500 PO (02:40)
[2024-02-07] MEDS ORDERED: ZYRTEC10 M2 PO (02:41)
[2024-02-07] MEDS ORDERED: TAMS.4ER PO (02:42)
[2024-02-07] MEDS ORDERED: ALOGLIPTIN25 M7 PO (02:42)
[2024-02-07] MEDS ORDERED: Calcium Acetat667 MG PO (02:43)
[2024-02-07] MEDS ORDERED: TORSE20 PO (02:44)
[2024-02-07] MEDS ORDERED: Diphth,Pertuss(Acell),Tet Vac 0.5 ML VIAL IM ONE (02:45)
[2024-02-07] MEDS ORDERED: Cefepime HCl 2,000 MG in NS 100 ML IV ONE (02:45)
[2024-02-07] MEDS ORDERED: Vancomycin HCL 2,000 MG in NS 500 ML IV ONE (03:15)
[2024-02-07] MEDS ORDERED: Acetaminophen 500 MG Tab PO PRN (03:15)
[2024-02-07] MEDS ORDERED: Cefepime HCl 1,000 MG in NS 100 ML IV SCH ×2 (03:30→18:00)
[2024-02-07 04:06] LABS: C-REACTIVE PROTEIN, EXT RANGE 4.99 mg/dL (0.000-0.300)
[2024-02-07] MEDS ORDERED: Insulin Regular 100 UNIT/ML 10ML Vial SC SCH ×2 (06:00→11:30)
[2024-02-07 07:47] LABS: BASOPHILS ABSOLUTE AUTO 0.06 K/mm3 (0.00-0.23); BASOPHILS PERCENT AUTO 1 % (0-2); EOSINOPHILS ABSOLUTE AUTO 0.33 K/mm3 (0.00-0.68); EOSINOPHILS PERCENT AUTO 4 % (0-6); Hematocrit 24.7 % (37.0-53.0); Hemoglobin 7.8 g/dL (13.5-17.5); IMMATURE GRAN ABSOLUTE AUTO 0.04 K/mm3 (0.00-0.10); IMMATURE GRAN PERCENT AUTO 0 % (0-1); LYMPHOCYTES ABSOLUTE AUTO 1.82 K/mm3 (0.84-5.20); LYMPHOCYTES PERCENT AUTO 20 % (21-46); MONOCYTES ABSOLUTE AUTO 0.86 K/mm3 (0.16-1.47); MONOCYTES PERCENT AUTO 9 % (4-13); Mean Corpuscular HGB 26.9 pg (26.0-34.0); Mean Corpuscular HGB Conc 31.6 g/dL (31.5-36.5); Mean Corpuscular Volume 85 fL (80-100); Mean Platelet Volume 8.8 fL (9.1-12.4); NEUTROPHILS ABSOLUTE AUTO 6.15 K/mm3 (1.96-9.15); NEUTROPHILS PERCENT AUTO 66 % (41-73); Platelet Count 364 K/mm3 (150-400); RDW Coefficient Variation 14.5 % (11.7-14.2); RDW Standard Deviation 44.5 fL (35.1-46.3); White Blood Cell Count 9.26 K/mm3 (4.00-11.30)
[2024-02-07] MEDS ORDERED: Carvedilol 3.125 MG Tab PO SCH (08:00)
[2024-02-07] MEDS ORDERED: Calcium Acetate 667 MG Gel Cap PO SCH (08:30)
[2024-02-07 08:36] LABS: Albumin, Blood 2.3 g/dL (3.4-5.0); Albumin/Globulin Ratio 0.4 (0.8-1.8); Bilirubin, Total 0.3 mg/dL (0.1-1.0); Bun/Creatinine Ratio 12.6 (12.0-20.0); Calcium, Blood 7.9 mg/dL (8.5-10.1); Creatinine, Blood 3.74 mg/dL (0.60-1.20); Globulin, Blood 5.4 g/dL (2.2-4.0); Potassium, Blood 4.5 mmol/L (3.5-5.5); Total Protein, Blood 7.7 g/dL (6.4-8.2)
[2024-02-07] MEDS ORDERED: AmLODIPine Besylate 5 MG Tab PO SCH (09:00)
[2024-02-07] MEDS ORDERED: Tamsulosin HCl 0.4 MG Cap PO SCH (09:00)
[2024-02-07] MEDS ORDERED: Loratadine 10 MG Tab PO SCH (09:00)
[2024-02-07] MEDS ORDERED: Lactobacil 2-S.Thermo-Bifido 1 1 Cap PO SCH (09:00)
[2024-02-07] MEDS ORDERED: Enoxaparin 40 MG/0.4 ML SYR SC SCH (09:00)
[2024-02-07] MEDS ORDERED: Enoxaparin 30 MG/0.3 ML SYR SC SCH (09:00)
[2024-02-07] MEDS ORDERED: Gabapentin 300 MG Cap PO SCH (09:00)
[2024-02-07] MEDS ORDERED: NS 250 ML IV PRN (09:40)
[2024-02-07] MEDS ORDERED: Piperacillin/Tazobactam Sod 3.375 GM in NS 100 ML IV SCH (11:00)
[2024-02-07] MEDS ORDERED: Insulin Glargine-Yfgn 100 Unit/mL 3 ML SYR SC SCH (11:00)
[2024-02-07 14:04] VITALS: BP 156/84
[2024-02-07 19:15] VITALS: BP 161/75
[2024-02-07] MEDS ORDERED: Epoetin Alfa-EPBX 4,000 UNIT/ML 1ML Vial IV SCH (22:00)
[2024-02-07] MEDS ORDERED: HYDROcodone 5-APAP 325 TAB PO PRN (22:05)
[2024-02-08] VITALS (26 sets, daily range): BP systolic 107–168; BP diastolic 69–105
[2024-02-08 04:32] LABS: BASOPHILS ABSOLUTE AUTO 0.08 K/mm3 (0.00-0.23); BASOPHILS PERCENT AUTO 1 % (0-2); EOSINOPHILS ABSOLUTE AUTO 0.42 K/mm3 (0.00-0.68); EOSINOPHILS PERCENT AUTO 5 % (0-6); Hematocrit 25.2 % (37.0-53.0); Hemoglobin 7.9 g/dL (13.5-17.5); IMMATURE GRAN ABSOLUTE AUTO 0.03 K/mm3 (0.00-0.10); IMMATURE GRAN PERCENT AUTO 0 % (0-1); LYMPHOCYTES ABSOLUTE AUTO 1.85 K/mm3 (0.84-5.20); LYMPHOCYTES PERCENT AUTO 21 % (21-46); MONOCYTES ABSOLUTE AUTO 0.91 K/mm3 (0.16-1.47); MONOCYTES PERCENT AUTO 10 % (4-13); Mean Corpuscular HGB 26.4 pg (26.0-34.0); Mean Corpuscular HGB Conc 31.3 g/dL (31.5-36.5); Mean Corpuscular Volume 84 fL (80-100); Mean Platelet Volume 8.9 fL (9.1-12.4); NEUTROPHILS ABSOLUTE AUTO 5.43 K/mm3 (1.96-9.15); NEUTROPHILS PERCENT AUTO 62 % (41-73); Platelet Count 383 K/mm3 (150-400); RDW Coefficient Variation 14.3 % (11.7-14.2); RDW Standard Deviation 44.3 fL (35.1-46.3); Red Blood Cell Count 2.99 M/mm3 (4.30-5.90); White Blood Cell Count 8.72 K/mm3 (4.00-11.30)
[2024-02-08 04:53] LABS: Alanine Aminotransfer (ALT/SGP 23 U/L (12-78); Albumin, Blood 2.2 g/dL (3.4-5.0); Albumin/Globulin Ratio 0.4 (0.8-1.8); Alk Phos 176 U/L (50-136); Anion Gap 10 mmol/L (3-11); Aspartate Aminotrans (AST/SGOT 14 U/L (12-37); Bilirubin, Total 0.2 mg/dL (0.1-1.0); Blood Urea Nitrogen 50 mg/dL (8-24); CO2, Blood 19 mmol/L (21-32); Calcium, Blood 8.2 mg/dL (8.5-10.1); Chloride, Blood 113 mmol/L (98-108); Creatinine, Blood 3.84 mg/dL (0.60-1.20); Ferritin, Serum 115 ng/mL (26-388); Globulin, Blood 5.5 g/dL (2.2-4.0); Glomerular Filtration Rate 17 (60-); Glucose, Blood 114 mg/dL (70-99); Iron Serum 19 ug/dL (65-175); Percent Saturation 5.9 % (20.0-50.0); Phosphorus, Blood 4.4 mg/dL (2.5-4.9); Potassium, Blood 4.8 mmol/L (3.5-5.5); Sodium, Blood 137 mmol/L (136-145); Total Iron Binding Capacity 322 ug/dL (250-450); Total Protein, Blood 7.7 g/dL (6.4-8.2); Vancomycin, Random 20.1 ug/mL
[2024-02-08] MEDS ORDERED: Lactated Ringer's 1,000 ML IV SCH (06:20)
[2024-02-08] MEDS ORDERED: Dextrose 50% 50 ML Syringe IV ONE ×2 (06:50→09:45)
[2024-02-08] MEDS ORDERED: Bupivacaine 0.5% HCl 5 MG/ML 30MLVIAL ONE (07:10)
[2024-02-08] MEDS ORDERED: Vancomycin HCl 1000 MG ADDvantage ONE (07:10)
[2024-02-08] MEDS ORDERED: Dexmedetomidine HCL 200 MCG / 2 ML ONE (07:21)
[2024-02-08] MEDS ORDERED: propofoL 40 ML IV ONE (07:31)
[2024-02-08] MEDS ORDERED: HYDROmorphone HCl/Pf 1MG SYR ONE ×2 (07:31→09:19)
[2024-02-08] MEDS ORDERED: Ketamine HCl 100 MG / ML 5ML Vial ONE (07:31)
[2024-02-08] MEDS ORDERED: Rocuronium Bromide 10 MG/ML 5ML Injection IV ONE (07:33)
[2024-02-08] MEDS ORDERED: Bisacodyl 10 MG Supp PR PRN (07:40)
[2024-02-08] MEDS ORDERED: Ondansetron HCl 2 MG / ML 2ML Vial IV PRN (07:40)
[2024-02-08] MEDS ORDERED: Naloxone HCl 0.4MG / ML 1ML Vial IV PRN (07:40)
[2024-02-08] MEDS ORDERED: Acetaminophen 325 MG TABLET PO PRN (07:40)
[2024-02-08] MEDS ORDERED: Metoclopramide HCl 10 MG Tab PO PRN (07:40)
[2024-02-08] MEDS ORDERED: OxyCODONE HCL 5 MG TAB PO PRN (07:40)
[2024-02-08] MEDS ORDERED: Ondansetron 4 MG TAB PO PRN (07:40)
[2024-02-08] MEDS ORDERED: Magnesium Hydroxide Conc 10 ML UDC PO PRN (07:45)
[2024-02-08] MEDS ORDERED: NS 1,000 ML IV SCH (07:45)
[2024-02-08] MEDS ORDERED: HYDROmorphone HCl/Pf 1MG SYR IV PRN (07:45)
[2024-02-08] MEDS ORDERED: Ondansetron HCl 2 MG / ML 2ML Vial ONE (08:26)
[2024-02-08] MEDS ORDERED: Dexamethasone Sod Phos 10 MG/ML 1ML VIAL ONE (08:26)
[2024-02-08] MEDS ORDERED: Phenylephrine HCl 100 MCG/ML-NS 10MLSYR (1MG/10ML) ONE (08:32)
[2024-02-08] MEDS ORDERED: Sugammadex Sodium 200 MG/2ML SDV (100 MG/ML) ONE (08:34)
[2024-02-08] MEDS ORDERED: Docusate Sodium 100 MG Cap PO SCH (09:00)
[2024-02-08] MEDS ORDERED: Vancomycin HCL 1,000 MG in NS 250 ML IV ONE (12:00)
[2024-02-08] MEDS ORDERED: Calcitriol 0.25 MCG Cap PO SCH (12:00)
[2024-02-08] MEDS ORDERED: Ergocalciferol 50000 Intn'l Units PO SCH (12:40)
[2024-02-08 13:30] LABS: Bun/Creatinine Ratio 13.4 (12.0-20.0); Calcium, Blood 8.4 mg/dL (8.5-10.1); Creatinine, Blood 3.8 mg/dL (0.60-1.20); Potassium, Blood 5.5 mmol/L (3.5-5.5)
[2024-02-08] MEDS ORDERED: NS IV SCH (14:00)
[2024-02-08] MEDS ORDERED: SUCROSE IV SCH (14:00)
[2024-02-08] MEDS ORDERED: SOD FERRIC GLUC COMPLX IV SCH (14:00)
[2024-02-08] MEDS ORDERED: Bupivacaine HCl 2.5 MG/ML 10ML P/F Injection ONE (14:20)
[2024-02-08] MEDS ORDERED: Bupivacaine HCl 0.25% 30 ML Injection ONE (14:21)
[2024-02-08 22:07] LABS: BASOPHILS ABSOLUTE AUTO 0.03 K/mm3 (0.00-0.23); BASOPHILS PERCENT AUTO 0 % (0-2); EOSINOPHILS PERCENT AUTO 0 % (0-6); Hematocrit 25.9 % (37.0-53.0); Hemoglobin 8.1 g/dL (13.5-17.5); IMMATURE GRAN ABSOLUTE AUTO 0.05 K/mm3 (0.00-0.10); IMMATURE GRAN PERCENT AUTO 0 % (0-1); LYMPHOCYTES ABSOLUTE AUTO 0.44 K/mm3 (0.84-5.20); LYMPHOCYTES PERCENT AUTO 4 % (21-46); MONOCYTES ABSOLUTE AUTO 0.11 K/mm3 (0.16-1.47); MONOCYTES PERCENT AUTO 1 % (4-13); Mean Corpuscular HGB 26.7 pg (26.0-34.0); Mean Corpuscular HGB Conc 31.3 g/dL (31.5-36.5); Mean Corpuscular Volume 86 fL (80-100); Mean Platelet Volume 9.6 fL (9.1-12.4); NEUTROPHILS ABSOLUTE AUTO 10.69 K/mm3 (1.96-9.15); NEUTROPHILS PERCENT AUTO 94 % (41-73); Platelet Count 418 K/mm3 (150-400); RDW Coefficient Variation 14.9 % (11.7-14.2); RDW Standard Deviation 45.9 fL (35.1-46.3); Red Blood Cell Count 3.03 M/mm3 (4.30-5.90); White Blood Cell Count 11.32 K/mm3 (4.00-11.30)
[2024-02-08] MEDS ORDERED: GABA300 PO (22:24)
[2024-02-08] MEDS ORDERED: Calcium Acetat667 MG PO (22:27)
[2024-02-08] MEDS ORDERED: FERSU300 PO (22:42)
[2024-02-08] MEDS ORDERED: TRULICITY3 MG/0.5 M SC (22:44)
[2024-02-08 23:19] LABS: Albumin, Blood 2.1 g/dL (3.4-5.0); Albumin/Globulin Ratio 0.4 (0.8-1.8); Bilirubin, Total 0.2 mg/dL (0.1-1.0); Calcium, Blood 7.7 mg/dL (8.5-10.1); Creatinine, Blood 3.79 mg/dL (0.60-1.20); Globulin, Blood 5.8 g/dL (2.2-4.0); Potassium, Blood 6.8 mmol/L (3.5-5.5); Total Protein, Blood 7.9 g/dL (6.4-8.2)
[2024-02-08] MEDS ORDERED: Insulin Regular 100 UNIT/ML 10ML Vial IV ONE (23:35)
[2024-02-08] MEDS ORDERED: Torsemide 20 MG TAB PO ONE (23:35)
[2024-02-08] MEDS ORDERED: Sodium Bicarb 8.4% 1 MEQ/ML 50 ML Vial IV ONE (23:40)
[2024-02-08] MEDS ORDERED: CALCIUM GLUC IN NACL, ISO-OSM 50 ML IV ONE (23:45)
[2024-02-09] VITALS (38 sets, daily range): BP systolic 129–203; BP diastolic 70–111
[2024-02-09] MEDS ORDERED: Sodium Zirconium Cyclosilicate 10 GM Packet PO SCH
[2024-02-09 00:11] LABS: pH Blood Venous 7.23 (7.34-7.37)
[2024-02-09 00:12] LABS: Base Excess Venous -11.7 mmol/L; Bicarbonate Venous 15.7 mmol/L (24.0-30.0); PCO2 Venous 37.6 mmHg (38-42)
[2024-02-09 01:00] LABS: Beta-hydroxybutyrate 0.8 mg/dL (0.2-2.8)
[2024-02-09 02:14] LABS: Albumin, Blood 2.1 g/dL (3.4-5.0); Anion Gap 15 mmol/L (3-11); Blood Urea Nitrogen 54 mg/dL (8-24); CO2, Blood 16 mmol/L (21-32); Calcium, Blood 7.9 mg/dL (8.5-10.1); Chloride, Blood 104 mmol/L (98-108); Creatinine, Blood 3.86 mg/dL (0.60-1.20); Glomerular Filtration Rate 17 (60-); Glucose, Blood 652 mg/dL (70-99); Potassium, Blood 5.7 mmol/L (3.5-5.5); Sodium, Blood 129 mmol/L (136-145)
[2024-02-09] MEDS ORDERED: Insulin Human Regular 100 UNIT in NS 100 ML IV SCH (02:30)
[2024-02-09] MEDS ORDERED: NS 1,000 ML IV SCH (03:00)
[2024-02-09 04:45] LABS: BASOPHILS ABSOLUTE AUTO 0.02 K/mm3 (0.00-0.23); BASOPHILS PERCENT AUTO 0 % (0-2); EOSINOPHILS PERCENT AUTO 0 % (0-6); Hemoglobin 7.7 g/dL (13.5-17.5); IMMATURE GRAN ABSOLUTE AUTO 0.11 K/mm3 (0.00-0.10); IMMATURE GRAN PERCENT AUTO 1 % (0-1); LYMPHOCYTES ABSOLUTE AUTO 0.53 K/mm3 (0.84-5.20); LYMPHOCYTES PERCENT AUTO 5 % (21-46); MONOCYTES ABSOLUTE AUTO 0.12 K/mm3 (0.16-1.47); MONOCYTES PERCENT AUTO 1 % (4-13); Mean Corpuscular HGB Conc 30.8 g/dL (31.5-36.5); Mean Corpuscular Volume 85 fL (80-100); Mean Platelet Volume 8.6 fL (9.1-12.4); NEUTROPHILS PERCENT AUTO 93 % (41-73); Platelet Count 391 K/mm3 (150-400); RDW Coefficient Variation 14.4 % (11.7-14.2); RDW Standard Deviation 43.9 fL (35.1-46.3); Red Blood Cell Count 2.96 M/mm3 (4.30-5.90); White Blood Cell Count 11.68 K/mm3 (4.00-11.30)
[2024-02-09] MEDS ORDERED: Insulin Regular 100 UNIT/ML 10ML Vial IV ONE (05:00)
[2024-02-09 05:18] LABS: Albumin, Blood 2.2 g/dL (3.4-5.0); Anion Gap 14 mmol/L (3-11); Blood Urea Nitrogen 56 mg/dL (8-24); Bun/Creatinine Ratio 14.4 (12.0-20.0); CO2, Blood 17 mmol/L (21-32); Chloride, Blood 105 mmol/L (98-108); Creatinine, Blood 3.89 mg/dL (0.60-1.20); Glomerular Filtration Rate 17 (60-); Glucose, Blood 454 mg/dL (70-99); Phosphorus, Blood 4.2 mg/dL (2.5-4.9); Potassium, Blood 5.6 mmol/L (3.5-5.5); Sodium, Blood 130 mmol/L (136-145)
[2024-02-09] MEDS ORDERED: D5W-1/2NS 1,000 ML IV SCH (06:00)
[2024-02-09] MEDS ORDERED: HydrALAZINE HCl 20 MG / ML 1ML Vial IV PRN ×2 (06:45→12:35)
[2024-02-09 07:05] LABS: Bun/Creatinine Ratio 15.1 (12.0-20.0); Calcium, Blood 7.4 mg/dL (8.5-10.1); Creatinine, Blood 3.5 mg/dL (0.60-1.20); Potassium, Blood 5.1 mmol/L (3.5-5.5)
[2024-02-09] MEDS ORDERED: Torsemide 20 MG TAB PO SCH (09:00)
[2024-02-09 11:07] LABS: Vancomycin, Random 24.7 ug/mL
[2024-02-09 11:09] LABS: Bun/Creatinine Ratio 14.6 (12.0-20.0); Calcium, Blood 7.8 mg/dL (8.5-10.1); Creatinine, Blood 3.84 mg/dL (0.60-1.20); Potassium, Blood 5.2 mmol/L (3.5-5.5)
[2024-02-09] MEDS ORDERED: Dose Adjust by Pharmacy XX STA (11:25)
[2024-02-09] MEDS ORDERED: HYDROmorphone HCl/Pf 1MG SYR IV PRN (12:18)
[2024-02-09] MEDS ORDERED: Labetalol HCL 5 MG/ML 4ML Injection (Single Dose) IV PRN (12:35)
[2024-02-09] MEDS ORDERED: OxyCODONE HCL 5 MG TAB PO PRN (12:35)
[2024-02-09 15:08] LABS: Bun/Creatinine Ratio 15.3 (12.0-20.0); Calcium, Blood 6.6 mg/dL (8.5-10.1); Creatinine, Blood 3.33 mg/dL (0.60-1.20); Potassium, Blood 4.7 mmol/L (3.5-5.5)
[2024-02-09] MEDS ORDERED: Enoxaparin 30 MG/0.3 ML SYR SC SCH (17:00)
[2024-02-10] VITALS (39 sets, daily range): BP systolic 153–188; BP diastolic 67–99
[2024-02-10 00:41] LABS: Bun/Creatinine Ratio 14.7 (12.0-20.0); Calcium, Blood 7.3 mg/dL (8.5-10.1); Creatinine, Blood 3.75 mg/dL (0.60-1.20); Potassium, Blood 4.9 mmol/L (3.5-5.5)
[2024-02-10 04:47] LABS: Anion Gap 13 mmol/L (3-11); Blood Urea Nitrogen 60 mg/dL (8-24); Bun/Creatinine Ratio 16.1 (12.0-20.0); CO2, Blood 17 mmol/L (21-32); Calcium, Blood 7.7 mg/dL (8.5-10.1); Chloride, Blood 109 mmol/L (98-108); Creatinine, Blood 3.73 mg/dL (0.60-1.20); Glomerular Filtration Rate 18 (60-); Glucose, Blood 162 mg/dL (70-99); Potassium, Blood 4.9 mmol/L (3.5-5.5); Sodium, Blood 134 mmol/L (136-145); Vancomycin, Random 21.8 ug/mL
[2024-02-10 08:38] LABS: Bun/Creatinine Ratio 14.5 (12.0-20.0); Calcium, Blood 7.9 mg/dL (8.5-10.1); Creatinine, Blood 4.21 mg/dL (0.60-1.20); Potassium, Blood 5.1 mmol/L (3.5-5.5)
[2024-02-10 10:49] LABS: BASOPHILS ABSOLUTE AUTO 0.05 K/mm3 (0.00-0.23); BASOPHILS PERCENT AUTO 0 % (0-2); EOSINOPHILS ABSOLUTE AUTO 0.13 K/mm3 (0.00-0.68); EOSINOPHILS PERCENT AUTO 1 % (0-6); Hemoglobin 6.8 g/dL (13.5-17.5); IMMATURE GRAN ABSOLUTE AUTO 0.16 K/mm3 (0.00-0.10); IMMATURE GRAN PERCENT AUTO 1 % (0-1); LYMPHOCYTES ABSOLUTE AUTO 2.27 K/mm3 (0.84-5.20); LYMPHOCYTES PERCENT AUTO 19 % (21-46); MONOCYTES ABSOLUTE AUTO 1.13 K/mm3 (0.16-1.47); MONOCYTES PERCENT AUTO 9 % (4-13); Mean Corpuscular HGB 26.5 pg (26.0-34.0); Mean Corpuscular HGB Conc 30.9 g/dL (31.5-36.5); Mean Corpuscular Volume 86 fL (80-100); Mean Platelet Volume 8.5 fL (9.1-12.4); NEUTROPHILS ABSOLUTE AUTO 8.23 K/mm3 (1.96-9.15); NEUTROPHILS PERCENT AUTO 69 % (41-73); Platelet Count 368 K/mm3 (150-400); RDW Coefficient Variation 14.9 % (11.7-14.2); RDW Standard Deviation 46.2 fL (35.1-46.3); Red Blood Cell Count 2.57 M/mm3 (4.30-5.90); White Blood Cell Count 11.97 K/mm3 (4.00-11.30)
[2024-02-10] MEDS ORDERED: Furosemide 10 MG/ML 10ML Vial IV ONE (12:55)
[2024-02-10 16:48] LABS: Bun/Creatinine Ratio 14.1 (12.0-20.0); Calcium, Blood 7.9 mg/dL (8.5-10.1); Creatinine, Blood 4.4 mg/dL (0.60-1.20); Potassium, Blood 5.3 mmol/L (3.5-5.5)
[2024-02-10] MEDS ORDERED: Carvedilol 6.25 MG Tab PO SCH (17:00)
[2024-02-10] MEDS ORDERED: Insulin Glargine-Yfgn 100 Unit/mL 3 ML SYR SC ONE (17:55)
[2024-02-10] MEDS ORDERED: Gabapentin 300 MG Cap PO SCH (21:00)
[2024-02-10] MEDS ORDERED: Insulin Human Lispro 100 Units/ML 3ML Syringe SC SCH (21:00)
[2024-02-11] VITALS (28 sets, daily range): BP systolic 135–199; BP diastolic 58–98
[2024-02-11 04:46] LABS: Vancomycin, Random 20.2 ug/mL
[2024-02-11 05:27] LABS: BASOPHILS ABSOLUTE AUTO 0.09 K/mm3 (0.00-0.23); BASOPHILS PERCENT AUTO 1 % (0-2); EOSINOPHILS ABSOLUTE AUTO 0.34 K/mm3 (0.00-0.68); EOSINOPHILS PERCENT AUTO 3 % (0-6); Hematocrit 25.1 % (37.0-53.0); Hemoglobin 7.9 g/dL (13.5-17.5); IMMATURE GRAN ABSOLUTE AUTO 0.14 K/mm3 (0.00-0.10); IMMATURE GRAN PERCENT AUTO 1 % (0-1); LYMPHOCYTES ABSOLUTE AUTO 2.24 K/mm3 (0.84-5.20); LYMPHOCYTES PERCENT AUTO 18 % (21-46); MONOCYTES ABSOLUTE AUTO 1.31 K/mm3 (0.16-1.47); MONOCYTES PERCENT AUTO 11 % (4-13); Mean Corpuscular HGB 27.1 pg (26.0-34.0); Mean Corpuscular HGB Conc 31.5 g/dL (31.5-36.5); Mean Corpuscular Volume 86 fL (80-100); Mean Platelet Volume 9.3 fL (9.1-12.4); NEUTROPHILS ABSOLUTE AUTO 8.38 K/mm3 (1.96-9.15); NEUTROPHILS PERCENT AUTO 67 % (41-73); NRBC ABSOLUTE 0.02 K/mm3 (0.00-0.02); NRBC Auto 0.2 /100 WBC (0.0-0.2); Platelet Count 396 K/mm3 (150-400); RDW Coefficient Variation 14.8 % (11.7-14.2); RDW Standard Deviation 45.5 fL (35.1-46.3); Red Blood Cell Count 2.92 M/mm3 (4.30-5.90)
[2024-02-11 05:36] LABS: Bun/Creatinine Ratio 14.4 (12.0-20.0); Calcium, Blood 7.9 mg/dL (8.5-10.1); Creatinine, Blood 4.66 mg/dL (0.60-1.20); Potassium, Blood 5.7 mmol/L (3.5-5.5)
[2024-02-11] MEDS ORDERED: Acetaminophen 325 MG TABLET PT PRN (11:05)
[2024-02-11] MEDS ORDERED: NS 1,000 ML IV ONE (12:32)
[2024-02-11] MEDS ORDERED: NS 250 ML IV ONE (12:38)
[2024-02-11] MEDS ORDERED: Heparin Sodium 1000 Units/ML 10ML MDV ONE (12:38)
[2024-02-11] MEDS ORDERED: Heparin Sodium 10,000 Units/ML 1ML MDV ONE (12:39)
[2024-02-11] MEDS ORDERED: Midazolam HCl 1MG / ML 2ML Vial ONE (13:02)
[2024-02-11] MEDS ORDERED: FentaNYL Citrate 50 MCG/ML 2 ML Injection ONE (13:03)
[2024-02-11] MEDS ORDERED: Anticoagulant Sod Citrate Soln 3 ML SYR INJ PRN (13:30)
[2024-02-11] MEDS ORDERED: Vancomycin HCL 1,000 MG in NS 250 ML IV ONE (17:30)
[2024-02-11] MEDS ORDERED: Insulin Glargine-Yfgn 100 Unit/mL 3 ML SYR SC SCH (21:00)
[2024-02-11] MEDS ORDERED: Gabapentin 300 MG Cap PO SCH (21:00)
[2024-02-12] VITALS (21 sets, daily range): BP systolic 142–180; BP diastolic 73–93
[2024-02-12 04:18] LABS: BASOPHILS ABSOLUTE AUTO 0.08 K/mm3 (0.00-0.23); BASOPHILS PERCENT AUTO 1 % (0-2); EOSINOPHILS ABSOLUTE AUTO 0.34 K/mm3 (0.00-0.68); EOSINOPHILS PERCENT AUTO 3 % (0-6); Hematocrit 24.8 % (37.0-53.0); IMMATURE GRAN ABSOLUTE AUTO 0.08 K/mm3 (0.00-0.10); IMMATURE GRAN PERCENT AUTO 1 % (0-1); LYMPHOCYTES ABSOLUTE AUTO 1.52 K/mm3 (0.84-5.20); LYMPHOCYTES PERCENT AUTO 15 % (21-46); MONOCYTES ABSOLUTE AUTO 1.29 K/mm3 (0.16-1.47); MONOCYTES PERCENT AUTO 13 % (4-13); Mean Corpuscular HGB Conc 32.3 g/dL (31.5-36.5); Mean Corpuscular Volume 84 fL (80-100); Mean Platelet Volume 9.2 fL (9.1-12.4); NEUTROPHILS ABSOLUTE AUTO 6.83 K/mm3 (1.96-9.15); NEUTROPHILS PERCENT AUTO 67 % (41-73); NRBC ABSOLUTE 0.02 K/mm3 (0.00-0.02); NRBC Auto 0.2 /100 WBC (0.0-0.2); Platelet Count 342 K/mm3 (150-400); RDW Standard Deviation 45.3 fL (35.1-46.3); Red Blood Cell Count 2.96 M/mm3 (4.30-5.90); White Blood Cell Count 10.14 K/mm3 (4.00-11.30)
[2024-02-12 04:31] LABS: Alanine Aminotransfer (ALT/SGP 30 U/L (12-78); Albumin/Globulin Ratio 0.4 (0.8-1.8); Alk Phos 151 U/L (50-136); Anion Gap 15 mmol/L (3-11); Aspartate Aminotrans (AST/SGOT 25 U/L (12-37); Bilirubin, Total 0.5 mg/dL (0.1-1.0); Blood Urea Nitrogen 59 mg/dL (8-24); Bun/Creatinine Ratio 14.7 (12.0-20.0); CO2, Blood 19 mmol/L (21-32); Calcium, Blood 7.9 mg/dL (8.5-10.1); Chloride, Blood 106 mmol/L (98-108); Creatinine, Blood 4.02 mg/dL (0.60-1.20); Globulin, Blood 4.9 g/dL (2.2-4.0); Glomerular Filtration Rate 16 (60-); Glucose, Blood 213 mg/dL (70-99); Magnesium, Blood 1.9 mg/dL (1.6-2.4); Sodium, Blood 136 mmol/L (136-145); Total Protein, Blood 6.9 g/dL (6.4-8.2); Vancomycin, Random 28.4 ug/mL
[2024-02-12] MEDS ORDERED: Anticoagulant Sod Citrate Soln 3 ML SYR INJ PRN (08:10)
[2024-02-12 16:12] LABS: HEPATITIS B SURFACE ANTIBODY <3.10 IU/L
[2024-02-12 16:20] LABS: HEPATITIS A ANTIBODY, IGM Negative (Negative); HEPATITIS B CORE ANTIBODY, IGM Negative (Negative); HEPATITIS B SURFACE ANTIGEN Negative (Negative); HEPATITIS C AB CIA INTERP High Pos (Negative); HEPATITIS C ANTIBODY CIA INDEX >11.00 IV
[2024-02-13] VITALS (17 sets, daily range): BP systolic 138–232; BP diastolic 64–100
[2024-02-13 02:46] LABS: HCV QNT BY NAAT (LOG IU/ML) 6.32; HCV QNT BY NAAT INTERP Detected (Not Detected)
[2024-02-13 05:19] LABS: BASOPHILS ABSOLUTE AUTO 0.06 K/mm3 (0.00-0.23); BASOPHILS PERCENT AUTO 1 % (0-2); EOSINOPHILS ABSOLUTE AUTO 0.33 K/mm3 (0.00-0.68); EOSINOPHILS PERCENT AUTO 3 % (0-6); Hematocrit 24.5 % (37.0-53.0); Hemoglobin 7.8 g/dL (13.5-17.5); IMMATURE GRAN ABSOLUTE AUTO 0.05 K/mm3 (0.00-0.10); IMMATURE GRAN PERCENT AUTO 1 % (0-1); LYMPHOCYTES PERCENT AUTO 17 % (21-46); MONOCYTES PERCENT AUTO 12 % (4-13); Mean Corpuscular HGB 26.8 pg (26.0-34.0); Mean Corpuscular HGB Conc 31.8 g/dL (31.5-36.5); Mean Corpuscular Volume 84 fL (80-100); NEUTROPHILS ABSOLUTE AUTO 6.47 K/mm3 (1.96-9.15); NEUTROPHILS PERCENT AUTO 66 % (41-73); NRBC ABSOLUTE 0.02 K/mm3 (0.00-0.02); NRBC Auto 0.2 /100 WBC (0.0-0.2); Platelet Count 304 K/mm3 (150-400); RDW Coefficient Variation 15.2 % (11.7-14.2); RDW Standard Deviation 45.1 fL (35.1-46.3); Red Blood Cell Count 2.91 M/mm3 (4.30-5.90); White Blood Cell Count 9.81 K/mm3 (4.00-11.30)
[2024-02-13 05:46] LABS: Alanine Aminotransfer (ALT/SGP 32 U/L (12-78); Albumin, Blood 1.9 g/dL (3.4-5.0); Albumin/Globulin Ratio 0.4 (0.8-1.8); Alk Phos 138 U/L (50-136); Anion Gap 14 mmol/L (3-11); Aspartate Aminotrans (AST/SGOT 25 U/L (12-37); Bilirubin, Total 0.4 mg/dL (0.1-1.0); Blood Urea Nitrogen 44 mg/dL (8-24); Bun/Creatinine Ratio 14.8 (12.0-20.0); CO2, Blood 22 mmol/L (21-32); Calcium, Blood 7.9 mg/dL (8.5-10.1); Chloride, Blood 104 mmol/L (98-108); Creatinine, Blood 2.98 mg/dL (0.60-1.20); Globulin, Blood 4.5 g/dL (2.2-4.0); Glomerular Filtration Rate 23 (60-); Glucose, Blood 279 mg/dL (70-99); Potassium, Blood 3.5 mmol/L (3.5-5.5); Sodium, Blood 136 mmol/L (136-145); Total Protein, Blood 6.4 g/dL (6.4-8.2); Vancomycin, Random 19.1 ug/mL
[2024-02-13] MEDS ORDERED: Anticoagulant Sod Citrate Soln 3 ML SYR INJ PRN (07:55)
[2024-02-13] MEDS ORDERED: Heparin Sodium,Porcine 5,000 UNIT/0.5 ML SDV SC SCH (08:00)
[2024-02-13] MEDS ORDERED: Vancomycin HCL 1,000 MG in NS 250 ML IV ONE (12:00)
[2024-02-13] MEDS ORDERED: Vitamin B Cmplx/Vit C/Folic Ac 1 Tab PO SCH ×2 (15:50→18:00)
[2024-02-13] MEDS ORDERED: Zinc Sulfate 220 MG Cap (Provides 50MG) PO SCH ×2 (15:50→18:00)
[2024-02-13] MEDS ORDERED: Protein Supplement 30 ML UD PO SCH (21:00)
[2024-02-14] VITALS (20 sets, daily range): BP systolic 129–207; BP diastolic 49–108
[2024-02-14 05:15] LABS: BASOPHILS ABSOLUTE AUTO 0.07 K/mm3 (0.00-0.23); BASOPHILS PERCENT AUTO 1 % (0-2); EOSINOPHILS ABSOLUTE AUTO 0.39 K/mm3 (0.00-0.68); EOSINOPHILS PERCENT AUTO 4 % (0-6); Hematocrit 25.5 % (37.0-53.0); IMMATURE GRAN ABSOLUTE AUTO 0.08 K/mm3 (0.00-0.10); IMMATURE GRAN PERCENT AUTO 1 % (0-1); LYMPHOCYTES ABSOLUTE AUTO 1.64 K/mm3 (0.84-5.20); LYMPHOCYTES PERCENT AUTO 15 % (21-46); MONOCYTES ABSOLUTE AUTO 1.19 K/mm3 (0.16-1.47); MONOCYTES PERCENT AUTO 11 % (4-13); Mean Corpuscular HGB 26.8 pg (26.0-34.0); Mean Corpuscular HGB Conc 31.4 g/dL (31.5-36.5); Mean Corpuscular Volume 85 fL (80-100); Mean Platelet Volume 9.1 fL (9.1-12.4); NEUTROPHILS PERCENT AUTO 69 % (41-73); Platelet Count 287 K/mm3 (150-400); RDW Coefficient Variation 15.5 % (11.7-14.2); RDW Standard Deviation 45.5 fL (35.1-46.3); Red Blood Cell Count 2.99 M/mm3 (4.30-5.90); White Blood Cell Count 10.77 K/mm3 (4.00-11.30)
[2024-02-14 05:34] LABS: Alanine Aminotransfer (ALT/SGP 36 U/L (12-78); Albumin/Globulin Ratio 0.4 (0.8-1.8); Alk Phos 153 U/L (50-136); Anion Gap 11 mmol/L (3-11); Aspartate Aminotrans (AST/SGOT 24 U/L (12-37); Bilirubin, Total 0.3 mg/dL (0.1-1.0); Blood Urea Nitrogen 38 mg/dL (8-24); Bun/Creatinine Ratio 13.7 (12.0-20.0); CO2, Blood 24 mmol/L (21-32); Calcium, Blood 8.2 mg/dL (8.5-10.1); Chloride, Blood 102 mmol/L (98-108); Creatinine, Blood 2.78 mg/dL (0.60-1.20); Globulin, Blood 4.9 g/dL (2.2-4.0); Glomerular Filtration Rate 25 (60-); Glucose, Blood 302 mg/dL (70-99); Potassium, Blood 3.2 mmol/L (3.5-5.5); Sodium, Blood 134 mmol/L (136-145); Total Protein, Blood 6.9 g/dL (6.4-8.2)
[2024-02-14] MEDS ORDERED: Anticoagulant Sod Citrate Soln 3 ML SYR INJ PRN (07:50)
[2024-02-14] MEDS ORDERED: Carvedilol 6.25 MG Tab PO SCH (17:00)
[2024-02-15 04:40] VITALS: BP 170/79
[2024-02-15 07:16] VITALS: BP 154/68
[2024-02-15 13:26] LABS: BASOPHILS ABSOLUTE AUTO 0.09 K/mm3 (0.00-0.23); BASOPHILS PERCENT AUTO 1 % (0-2); EOSINOPHILS ABSOLUTE AUTO 0.53 K/mm3 (0.00-0.68); EOSINOPHILS PERCENT AUTO 5 % (0-6); Hematocrit 26.4 % (37.0-53.0); Hemoglobin 8.2 g/dL (13.5-17.5); IMMATURE GRAN ABSOLUTE AUTO 0.09 K/mm3 (0.00-0.10); IMMATURE GRAN PERCENT AUTO 1 % (0-1); LYMPHOCYTES PERCENT AUTO 16 % (21-46); MONOCYTES ABSOLUTE AUTO 1.14 K/mm3 (0.16-1.47); MONOCYTES PERCENT AUTO 10 % (4-13); Mean Corpuscular HGB Conc 31.1 g/dL (31.5-36.5); Mean Corpuscular Volume 87 fL (80-100); Mean Platelet Volume 9.3 fL (9.1-12.4); NEUTROPHILS ABSOLUTE AUTO 7.82 K/mm3 (1.96-9.15); NEUTROPHILS PERCENT AUTO 68 % (41-73); NRBC ABSOLUTE 0.02 K/mm3 (0.00-0.02); NRBC Auto 0.2 /100 WBC (0.0-0.2); Platelet Count 251 K/mm3 (150-400); RDW Coefficient Variation 15.9 % (11.7-14.2); RDW Standard Deviation 47.9 fL (35.1-46.3); Red Blood Cell Count 3.04 M/mm3 (4.30-5.90); White Blood Cell Count 11.57 K/mm3 (4.00-11.30)
[2024-02-15 13:48] LABS: Alanine Aminotransfer (ALT/SGP 36 U/L (12-78); Albumin, Blood 2.1 g/dL (3.4-5.0); Albumin/Globulin Ratio 0.4 (0.8-1.8); Alk Phos 167 U/L (50-136); Anion Gap 13 mmol/L (3-11); Aspartate Aminotrans (AST/SGOT 21 U/L (12-37); Bilirubin, Total 0.4 mg/dL (0.1-1.0); Blood Urea Nitrogen 55 mg/dL (8-24); CO2, Blood 24 mmol/L (21-32); Calcium, Blood 8.4 mg/dL (8.5-10.1); Chloride, Blood 100 mmol/L (98-108); Creatinine, Blood 3.44 mg/dL (0.60-1.20); Glomerular Filtration Rate 19 (60-); Glucose, Blood 316 mg/dL (70-99); Potassium, Blood 3.4 mmol/L (3.5-5.5); Sodium, Blood 134 mmol/L (136-145); Total Protein, Blood 7.1 g/dL (6.4-8.2); Vancomycin, Random 17.1 ug/mL
[2024-02-15] MEDS ORDERED: Vancomycin HCL 1,000 MG in NS 250 ML IV ONE (14:55)
[2024-02-15 15:06] VITALS: BP 132/69
[2024-02-15] MEDS ORDERED: Insulin Human Lispro 100 Units/ML 3ML Syringe SC SCH (16:30)
[2024-02-15 20:28] VITALS: BP 117/65
[2024-02-16] VITALS (18 sets, daily range): BP systolic 118–170; BP diastolic 60–96
[2024-02-16 14:54] LABS: Vancomycin, Random 20.7 ug/mL
[2024-02-16] MEDS ORDERED: Vancomycin HCL 750 MG in NS 250 ML IV ONE (16:00)
[2024-02-17 04:01] VITALS: BP 177/91
[2024-02-17 06:17] LABS: BASOPHILS ABSOLUTE AUTO 0.09 K/mm3 (0.00-0.23); BASOPHILS PERCENT AUTO 1 % (0-2); EOSINOPHILS ABSOLUTE AUTO 0.47 K/mm3 (0.00-0.68); EOSINOPHILS PERCENT AUTO 4 % (0-6); Hematocrit 26.2 % (37.0-53.0); Hemoglobin 8.2 g/dL (13.5-17.5); IMMATURE GRAN ABSOLUTE AUTO 0.08 K/mm3 (0.00-0.10); IMMATURE GRAN PERCENT AUTO 1 % (0-1); LYMPHOCYTES ABSOLUTE AUTO 1.82 K/mm3 (0.84-5.20); LYMPHOCYTES PERCENT AUTO 16 % (21-46); MONOCYTES ABSOLUTE AUTO 0.96 K/mm3 (0.16-1.47); MONOCYTES PERCENT AUTO 8 % (4-13); Mean Corpuscular HGB 27.3 pg (26.0-34.0); Mean Corpuscular HGB Conc 31.3 g/dL (31.5-36.5); Mean Corpuscular Volume 87 fL (80-100); Mean Platelet Volume 9.7 fL (9.1-12.4); NEUTROPHILS ABSOLUTE AUTO 8.23 K/mm3 (1.96-9.15); NEUTROPHILS PERCENT AUTO 71 % (41-73); Platelet Count 261 K/mm3 (150-400); RDW Coefficient Variation 16.8 % (11.7-14.2); RDW Standard Deviation 49.7 fL (35.1-46.3); White Blood Cell Count 11.65 K/mm3 (4.00-11.30)
[2024-02-17 06:35] LABS: Albumin, Blood 2.2 g/dL (3.4-5.0); Anion Gap 12 mmol/L (3-11); Blood Urea Nitrogen 44 mg/dL (8-24); Bun/Creatinine Ratio 16.4 (12.0-20.0); CO2, Blood 24 mmol/L (21-32); Calcium, Blood 8.5 mg/dL (8.5-10.1); Chloride, Blood 104 mmol/L (98-108); Creatinine, Blood 2.68 mg/dL (0.60-1.20); Glomerular Filtration Rate 26 (60-); Glucose, Blood 318 mg/dL (70-99); Phosphorus, Blood 3.8 mg/dL (2.5-4.9); Potassium, Blood 4.2 mmol/L (3.5-5.5); Sodium, Blood 136 mmol/L (136-145)
[2024-02-17 08:04] VITALS: BP 170/89
[2024-02-17 15:52] VITALS: BP 162/96
[2024-02-17 16:37] LABS: Vancomycin, Random 25.4 ug/mL
[2024-02-17 20:00] VITALS: BP 141/76
[2024-02-17] MEDS ORDERED: Insulin Glargine-Yfgn 100 Unit/mL 3 ML SYR SC SCH (21:00)
[2024-02-18 02:44] VITALS: BP 153/91
[2024-02-18 05:19] LABS: BASOPHILS PERCENT AUTO 1 % (0-2); EOSINOPHILS ABSOLUTE AUTO 0.49 K/mm3 (0.00-0.68); EOSINOPHILS PERCENT AUTO 5 % (0-6); Hematocrit 27.3 % (37.0-53.0); Hemoglobin 8.7 g/dL (13.5-17.5); IMMATURE GRAN ABSOLUTE AUTO 0.09 K/mm3 (0.00-0.10); IMMATURE GRAN PERCENT AUTO 1 % (0-1); LYMPHOCYTES ABSOLUTE AUTO 1.85 K/mm3 (0.84-5.20); LYMPHOCYTES PERCENT AUTO 17 % (21-46); MONOCYTES ABSOLUTE AUTO 0.85 K/mm3 (0.16-1.47); MONOCYTES PERCENT AUTO 8 % (4-13); Mean Corpuscular HGB 27.6 pg (26.0-34.0); Mean Corpuscular HGB Conc 31.9 g/dL (31.5-36.5); Mean Corpuscular Volume 87 fL (80-100); Mean Platelet Volume 10.1 fL (9.1-12.4); NEUTROPHILS ABSOLUTE AUTO 7.61 K/mm3 (1.96-9.15); NEUTROPHILS PERCENT AUTO 69 % (41-73); Platelet Count 285 K/mm3 (150-400); RDW Coefficient Variation 17.2 % (11.7-14.2); RDW Standard Deviation 52.4 fL (35.1-46.3); Red Blood Cell Count 3.15 M/mm3 (4.30-5.90); White Blood Cell Count 10.99 K/mm3 (4.00-11.30)
[2024-02-18 05:38] LABS: Anion Gap 11 mmol/L (3-11); Blood Urea Nitrogen 56 mg/dL (8-24); Bun/Creatinine Ratio 18.4 (12.0-20.0); CO2, Blood 23 mmol/L (21-32); Calcium, Blood 8.7 mg/dL (8.5-10.1); Chloride, Blood 105 mmol/L (98-108); Creatinine, Blood 3.04 mg/dL (0.60-1.20); Glomerular Filtration Rate 22 (60-); Glucose, Blood 188 mg/dL (70-99); Potassium, Blood 4.3 mmol/L (3.5-5.5); Sodium, Blood 135 mmol/L (136-145)
[2024-02-18] MEDS ORDERED: Piperacillin/Tazobactam Sod 2.25 GM in NS 50 ML IV SCH (08:00)
[2024-02-18 08:10] VITALS: BP 179/98
[2024-02-18 10:39] VITALS: BP 147/91
[2024-02-18] MEDS ORDERED: Miconazole Nitrate 28 GM CREAM..G. TOP SCH (12:30)
[2024-02-18 15:52] VITALS: BP 160/90
[2024-02-18 19:42] VITALS: BP 156/91
[2024-02-18] MEDS ORDERED: HydrALAZINE HCl 25 MG Tab PO SCH (21:00)
[2024-02-19 02:46] VITALS: BP 174/94
[2024-02-19 07:37] VITALS: BP 170/94
[2024-02-19 08:09] LABS: Albumin, Blood 2.2 g/dL (3.4-5.0); Blood Urea Nitrogen 64 mg/dL (8-24); Bun/Creatinine Ratio 19.7 (12.0-20.0); CO2, Blood 23 mmol/L (21-32); Calcium, Blood 9.1 mg/dL (8.5-10.1); Creatinine, Blood 3.25 mg/dL (0.60-1.20); Glomerular Filtration Rate 21 (60-); Glucose, Blood 155 mg/dL (70-99); Phosphorus, Blood 4.1 mg/dL (2.5-4.9); Vancomycin, Random 17.3 ug/mL
[2024-02-19 09:06] LABS: Anion Gap 15 mmol/L (3-11); Chloride, Blood 104 mmol/L (98-108); Potassium, Blood 4.2 mmol/L (3.5-5.5); Sodium, Blood 138 mmol/L (136-145)
[2024-02-19] MEDS ORDERED: Vancomycin HCL 1,000 MG in NS 250 ML IV ONE (10:35)
[2024-02-19 10:59] VITALS: BP 142/74
[2024-02-19] MEDS ORDERED: HUMALOG KW100 UNIT/1 SC (11:38)
[2024-02-19] MEDS ORDERED: HYDRA50 PO (11:41)
[2024-02-19] MEDS ORDERED: Norco 5-325 Ta1 EACH PO (11:41)
[2024-02-19] MEDS ORDERED: MICO100S TOP (11:42)
[2024-02-19] MEDS ORDERED: VISBIOME 112.51 EACH PO (11:42)
[2024-02-19] MEDS ORDERED: ERGO50000 PO (11:43)
[2024-02-19] MEDS ORDERED: ZINC220 PO (11:44)
== END 2024-02-19 12:49 | disposition home health service (06) | DRG 617 ==
LOC: ER 21:41 → ICUE 02-07 03:02 → ERHOLD 02-07 03:02 → MEDS 02-07 03:02 → ICUE 02-09 05:18 → PCU 02-11 17:20 → MEDS 02-13 16:04 → ENPENDDIS 02-19 12:38 → MEDS 02-19 12:49
PROVIDERS: Family Medicine; Internal Medicine; Internal Medicine Nephrology; Orthopaedic Surgery; Physician Assistant; Student in an Organized Health Care Education/Training Program; ADMIT Family Medicine
PROC: 30233N1 Transfusion of Nonautologous Red Blood Cells into Peripheral Vein, Percutaneous Approach (ICD-10-PCS; 2024-02-08)
PROC: 0Y6H0Z1 Detachment at Right Lower Leg, High, Open Approach (ICD-10-PCS; principal; 2024-02-08 07:30)
PROC: 0JH63XZ Insertion of Tunneled Vascular Access Device into Chest Subcutaneous Tissue and Fascia, Percutaneous Approach (ICD-10-PCS; 2024-02-11)
PROC: 02HV33Z Insertion of Infusion Device into Superior Vena Cava, Percutaneous Approach (ICD-10-PCS; 2024-02-11)
PROC: 5A1D70Z Performance of Urinary Filtration, Intermittent, Less than 6 Hours Per Day (ICD-10-PCS; 2024-02-14)
DX: E11.69 Type 2 diabetes mellitus with other specified complication (principal); D62 Acute posthemorrhagic anemia; E11.52 Type 2 diabetes mellitus with diabetic peripheral angiopathy with gangrene; I96 Gangrene, not elsewhere classified; E87.1 Hypo-osmolality and hyponatremia; M86.171 Other acute osteomyelitis, right ankle and foot; N18.4 Chronic kidney disease, stage 4 (severe); N25.81 Secondary hyperparathyroidism of renal origin; E11.10 Type 2 diabetes mellitus with ketoacidosis without coma; E11.621 Type 2 diabetes mellitus with foot ulcer; E87.5 Hyperkalemia; D63.1 Anemia in chronic kidney disease; L97.514 Non-pressure chronic ulcer of other part of right foot with necrosis of bone; N17.0 Acute kidney failure with tubular necrosis; L97.524 Non-pressure chronic ulcer of other part of left foot with necrosis of bone; E55.9 Vitamin D deficiency, unspecified; E11.22 Type 2 diabetes mellitus with diabetic chronic kidney disease; G89.4 Chronic pain syndrome; Z79.4 Long term (current) use of insulin; E66.9 Obesity, unspecified; Z79.899 Other long term (current) drug therapy; E11.40 Type 2 diabetes mellitus with diabetic neuropathy, unspecified; F15.10 Other stimulant abuse, uncomplicated; N40.0 Benign prostatic hyperplasia without lower urinary tract symptoms; Z98.890 Other specified postprocedural states; R74.01 Elevation of levels of liver transaminase levels; Z99.2 Dependence on renal dialysis; Z89.511 Acquired absence of right leg below knee; Z87.442 Personal history of urinary calculi; Z86.14 Personal history of Methicillin resistant Staphylococcus aureus infection; Z68.30 Body mass index [BMI] 30.0-30.9, adult
CPT/HCPCS: 36415; 36430; 36561; 71045; 73620; 73630; 76937; 80048; 80053; 80069; 80074; 80202; 82010; 82306; 82550; 82570; 82728; 82803; 82947; 83036; 83540; 83550; 83605; 83735; 83930; 83970; 84100; 84132; 84156; 85025; 85651; 86140; 86850; 86900; 86901; 86923; 87040; 87070; 87075; 87077; 87186; 87205; 87522; 88307; 90471; 90715; 93005; 93010; 94760; 94762; 97110; 97112; 97162; 97166; 97530; 99285-25; A9270; C1750; C1769; C1894; J0360; J0612; J0692; J1100; J1170; J1644; J1650; J1815; J1940; J2250; J2371; J2405; J2543; J2704; J2916; J3010; J3370; J7030; J7040; J7042; J7050; P9016; Q5106

== ENCOUNTER 2024-04-03 14:30 | Inpatient (IN) | payer OTHER ==
[~2024-04-03] VITALS: Ht 182.9 cm; Wt 97.7 kg
[2024-04-03] VITALS (12 sets, daily range): BP systolic 141–192; BP diastolic 81–128
[~2024-04-03 14:30] MED LIST changes: +ACET500 PO; +ALOGLIPTIN25 M7 PO; +Calcium Acetat667 MG PO; +ERGO50000 PO; +FERSU300 PO; +GABA300 PO; +HUMALOG KW100 UNIT/1 SC; +HYDRA50 PO; +MICO100S TOP; +Norco 5-325 Ta1 EACH PO; +TAMS.4ER PO; +TORSE20 PO; +TRULICITY3 MG/0.5 M SC; +VISBIOME 112.51 EACH PO; +ZINC220 PO; +ZYRTEC10 M2 PO
[2024-04-03] MEDS ORDERED: TERBINAFINE (15:23)
[2024-04-03] MEDS ORDERED: SILVADENE20 G1 TOP (15:23)
[2024-04-03] MEDS ORDERED: NS 250 ML IV ONE (15:24)
[2024-04-03] MEDS ORDERED: NS 1,000 ML IV ONE ×2 (15:24)
[2024-04-03] MEDS ORDERED: Heparin Sodium 1000 Units/ML 10ML MDV ONE (15:25)
[2024-04-03] MEDS ORDERED: METO5 PO (15:25)
[2024-04-03] MEDS ORDERED: TraZODone HCl 50 MG Tab PO PRN (15:35)
[2024-04-03] MEDS ORDERED: Naloxone HCl 0.4MG / ML 1ML Vial IV PRN (15:35)
[2024-04-03] MEDS ORDERED: Acetaminophen 325 MG TABLET PO PRN (15:35)
[2024-04-03] MEDS ORDERED: OxyCODONE HCL 5 MG TAB PO PRN (15:35)
[2024-04-03] MEDS ORDERED: Ondansetron HCl 2 MG / ML 2ML Vial IV PRN (15:35)
[2024-04-03] MEDS ORDERED: FentaNYL Citrate 50 MCG/ML 2 ML Injection IV PRN (15:40)
[2024-04-03] MEDS ORDERED: FLU VACC TS2024-25(6MOS UP)/PF 45 MCG/0.5 ML SYRINGE IM SCH (15:40)
[2024-04-03] MEDS ORDERED: Ondansetron HCl 2 MG / ML 2ML Vial ONE (15:45)
[2024-04-03] MEDS ORDERED: Midazolam HCl 1MG / ML 2ML Vial ONE (15:45)
[2024-04-03] MEDS ORDERED: FentaNYL Citrate 50 MCG/ML 2 ML Injection ONE (15:46)
[2024-04-03 15:49] LABS: BASOPHILS ABSOLUTE AUTO 0.03 K/mm3 (0.00-0.23); BASOPHILS PERCENT AUTO 0 % (0-2); EOSINOPHILS ABSOLUTE AUTO 0.29 K/mm3 (0.00-0.68); EOSINOPHILS PERCENT AUTO 3 % (0-6); Hematocrit 31.7 % (37.0-53.0); Hemoglobin 10.4 g/dL (13.5-17.5); IMMATURE GRAN ABSOLUTE AUTO 0.03 K/mm3 (0.00-0.10); IMMATURE GRAN PERCENT AUTO 0 % (0-1); LYMPHOCYTES ABSOLUTE AUTO 1.15 K/mm3 (0.84-5.20); LYMPHOCYTES PERCENT AUTO 10 % (21-46); MONOCYTES ABSOLUTE AUTO 0.96 K/mm3 (0.16-1.47); MONOCYTES PERCENT AUTO 8 % (4-13); Mean Corpuscular HGB 27.4 pg (26.0-34.0); Mean Corpuscular HGB Conc 32.8 g/dL (31.5-36.5); Mean Corpuscular Volume 83 fL (80-100); Mean Platelet Volume 9.5 fL (9.1-12.4); NEUTROPHILS ABSOLUTE AUTO 8.91 K/mm3 (1.96-9.15); NEUTROPHILS PERCENT AUTO 78 % (41-73); Platelet Count 347 K/mm3 (150-400); RDW Coefficient Variation 14.9 % (11.7-14.2); RDW Standard Deviation 45.3 fL (35.1-46.3); White Blood Cell Count 11.37 K/mm3 (4.00-11.30)
[2024-04-03 16:01] LABS: Bun/Creatinine Ratio 19.2 (12.0-20.0); Creatinine, Blood 3.9 mg/dL (0.60-1.20); Potassium, Blood 3.5 mmol/L (3.5-5.5)
[2024-04-03 16:10] LABS: International Normalized Ratio 0.95; Prothrombin Time Results 10.2 Sec (9.7-11.5)
[2024-04-03] MEDS ORDERED: Insulin Human Lispro 100 Units/ML 3ML Syringe SC SCH (16:30)
[2024-04-03] MEDS ORDERED: Vancomycin HCL 2,000 MG in NS 500 ML IV SCH (16:50)
[2024-04-03] MEDS ORDERED: Carvedilol 3.125 MG Tab PO SCH (17:00)
[2024-04-03] MEDS ORDERED: CefTRIAXone Sodium 1,000 MG in NS 100 ML IV SCH (18:00)
[2024-04-03] MEDS ORDERED: Piperacillin/Tazobactam Sod 2.25 GM in NS 50 ML IV SCH (18:00)
--- NOTE | 2024-04-03 18:56 | NUR ---
ARRIVAL TO UNIT PT ARRIVED TO PCU AT 1700 VIA HOSPITAL BED AND ON RA. PT A/OX4 AND COOPERATIVE OF CARE. BANDAGES IN PLACE ON LEFT FOOT, BANDAGES REMOVED AND PHOTOS TAKEN AND IN CHART. PT ORIENTED TO ROOM. PT SEEN BY SHAREBROKER AND FUEL TANK SEALER AND TESTER, SEE MD NOTES.
[2024-04-03] MEDS ORDERED: Famotidine 20 MG Tab PO SCH (21:00)
[2024-04-03] MEDS ORDERED: Sennosides 8.6 MG Tab PO SCH (21:00)
[2024-04-03] MEDS ORDERED: Gabapentin 100 MG Cap PO SCH (21:00)
[2024-04-03] MEDS ORDERED: Lactobacil 2-S.Thermo-Bifido 1 1 Cap PO SCH (21:00)
[2024-04-03] MEDS ORDERED: Docusate Sodium 100 MG Cap PO SCH (21:00)
[2024-04-04] VITALS (20 sets, daily range): BP systolic 102–198; BP diastolic 45–99
[2024-04-04 03:55] LABS: BASOPHILS ABSOLUTE AUTO 0.03 K/mm3 (0.00-0.23); BASOPHILS PERCENT AUTO 0 % (0-2); EOSINOPHILS ABSOLUTE AUTO 0.21 K/mm3 (0.00-0.68); EOSINOPHILS PERCENT AUTO 2 % (0-6); Hematocrit 29.5 % (37.0-53.0); Hemoglobin 9.5 g/dL (13.5-17.5); IMMATURE GRAN ABSOLUTE AUTO 0.03 K/mm3 (0.00-0.10); IMMATURE GRAN PERCENT AUTO 0 % (0-1); LYMPHOCYTES ABSOLUTE AUTO 0.77 K/mm3 (0.84-5.20); LYMPHOCYTES PERCENT AUTO 8 % (21-46); MONOCYTES ABSOLUTE AUTO 0.78 K/mm3 (0.16-1.47); MONOCYTES PERCENT AUTO 8 % (4-13); Mean Corpuscular HGB 27.1 pg (26.0-34.0); Mean Corpuscular HGB Conc 32.2 g/dL (31.5-36.5); Mean Corpuscular Volume 84 fL (80-100); NEUTROPHILS ABSOLUTE AUTO 7.71 K/mm3 (1.96-9.15); NEUTROPHILS PERCENT AUTO 81 % (41-73); Platelet Count 289 K/mm3 (150-400); RDW Coefficient Variation 14.8 % (11.7-14.2); RDW Standard Deviation 45.7 fL (35.1-46.3); White Blood Cell Count 9.53 K/mm3 (4.00-11.30)
[2024-04-04] MEDS ORDERED: HydrALAZINE HCl 20 MG / ML 1ML Vial IV PRN (04:05)
[2024-04-04 04:15] LABS: Alanine Aminotransfer (ALT/SGP 47 U/L (12-78); Albumin, Blood 2.2 g/dL (3.4-5.0); Albumin/Globulin Ratio 0.5 (0.8-1.8); Alk Phos 327 U/L (50-136); Anion Gap 15 mmol/L (3-11); Aspartate Aminotrans (AST/SGOT 28 U/L (12-37); Bilirubin, Total 0.5 mg/dL (0.1-1.0); Blood Urea Nitrogen 68 mg/dL (8-24); CO2, Blood 23 mmol/L (21-32); Calcium, Blood 8.2 mg/dL (8.5-10.1); Chloride, Blood 100 mmol/L (98-108); Creatinine, Blood 3.78 mg/dL (0.60-1.20); Globulin, Blood 4.4 g/dL (2.2-4.0); Glomerular Filtration Rate 17 (60-); Glucose, Blood 348 mg/dL (70-99); Iron Serum 19 ug/dL (65-175); Percent Saturation 9.7 % (20.0-50.0); Phosphorus, Blood 4.9 mg/dL (2.5-4.9); Potassium, Blood 3.5 mmol/L (3.5-5.5); Sodium, Blood 134 mmol/L (136-145); Total Iron Binding Capacity 196 ug/dL (250-450); Total Protein, Blood 6.6 g/dL (6.4-8.2); Vancomycin, Random 27.4 ug/mL
--- NOTE | 2024-04-04 05:46 | NUR ---
SHIFT SUMMARY PT A&O X4, ABLE TO MAKE NEEDS KNOWN. VSS, AFEBRILE, SPO2 >92% ON RA. PT WITH R BKA. LLE IS WITH NECROTIC TISSUE, WOUNDS LEFT OPEN TO AIR, HEEL FLOATED ON PILLOW, PICTURES IN CHART. PT HAD ANGIO DONE ON 04/03, R GROIN SITE RECOVERED AND IS FREE FROM BLEEDING, REDNESS, HEMATOMA, AREA IS NON TENDER. PT REMAINS ON BED REST, HE IS NPO FOR SURGERY 04/04. PT USES URINAL INDEPENDENTLY WITH GOOD OUTPUT. PT IS RESTING QUIETLY IN BED, BREATHING EVEN AND UNLABORED, CALL LIGHT IN REACH.
[2024-04-04] MEDS ORDERED: Vitamin B Cmplx/Vit C/Folic Ac 1 Tab PO SCH (09:00)
[2024-04-04] MEDS ORDERED: Insulin Glargine-Yfgn 100 Unit/mL 3 ML SYR SC SCH (09:00)
[2024-04-04] MEDS ORDERED: Tamsulosin HCl 0.4 MG Cap PO SCH (09:00)
[2024-04-04] MEDS ORDERED: Torsemide 20 MG TAB PO SCH (09:00)
[2024-04-04] MEDS ORDERED: Ferrous Sulfate 325 MG Tab PO SCH (09:00)
[2024-04-04] MEDS ORDERED: CeFAZolin Sodium 2,000 MG in NS 100 ML IV ONE (10:35)
[2024-04-04] MEDS ORDERED: NS 1,000 ML IV SCH ×3 (13:05→17:10)
--- NOTE | 2024-04-04 13:43 | NUR ---
PT LEFT FOR PROCEDURE AT 1340 VIA GURNEY AND ON RA. PT SLID FROM BED TO REATON VIA SLIDE SHEET AND 4 STAFF MEMBERS.
[2024-04-04] MEDS ORDERED: Rocuronium Bromide 10 MG/ML 5ML Injection IV ONE (14:19)
[2024-04-04] MEDS ORDERED: FentaNYL Citrate 50 MCG/ML 2 ML Injection ONE (14:19)
[2024-04-04] MEDS ORDERED: propofoL 20 ML IV ONE (14:19)
[2024-04-04] MEDS ORDERED: Dexamethasone Sod Phos 10 MG/ML 1ML VIAL ONE (14:35)
[2024-04-04] MEDS ORDERED: Ondansetron HCl 2 MG / ML 2ML Vial ONE (14:35)
[2024-04-04] MEDS ORDERED: Sugammadex Sodium 200 MG/2ML SDV (100 MG/ML) ONE (14:46)
--- NOTE | 2024-04-04 14:55 | NUR ---
SUNG UPDATE REPORT CALLED TO MEDICAL FLOOR RN AT 1450. PT CURRENTLY IN PROCEDURE. FAMILY IN ROOM AND UPDATED OF TREVIN.
[2024-04-04] MEDS ORDERED: EpiNEPhrine 1 MG/1 ML 1ML Vial ONE (14:59)
[2024-04-04] MEDS ORDERED: Bupivacaine 0.5% HCl 5 MG/ML 30MLVIAL ONE (14:59)
[2024-04-04] MEDS ORDERED: Phenylephrine HCl 100 MCG/ML-NS 10MLSYR (1MG/10ML) ONE (15:00)
[2024-04-04] MEDS ORDERED: FentaNYL Citrate 50 MCG/ML 2 ML Injection IV PRN (17:10)
--- NOTE | 2024-04-04 18:27 | NUR ---
pt pain is getting more controlled, family was in to see him, he felt like one localized area was hurting the most, and removed his dressing because he felt it was too tight, explained it needs to be redressed, vs have been stable, call light in reach.
[2024-04-05] MEDS ORDERED: CeFAZolin Sodium 1,000 MG in NS 50 ML IV SCH
[2024-04-05] MEDS ORDERED: Piperacillin/Tazobactam Sod 2.25 GM in NS 50 ML IV SCH
[2024-04-05 04:10] VITALS: BP 159/94
[2024-04-05 05:21] LABS: BASOPHILS ABSOLUTE AUTO 0.02 K/mm3 (0.00-0.23); BASOPHILS PERCENT AUTO 0 % (0-2); EOSINOPHILS PERCENT AUTO 0 % (0-6); Hemoglobin 9.1 g/dL (13.5-17.5); IMMATURE GRAN ABSOLUTE AUTO 0.03 K/mm3 (0.00-0.10); IMMATURE GRAN PERCENT AUTO 0 % (0-1); LYMPHOCYTES ABSOLUTE AUTO 0.59 K/mm3 (0.84-5.20); LYMPHOCYTES PERCENT AUTO 5 % (21-46); MONOCYTES ABSOLUTE AUTO 0.79 K/mm3 (0.16-1.47); MONOCYTES PERCENT AUTO 7 % (4-13); Mean Corpuscular HGB 27.5 pg (26.0-34.0); Mean Corpuscular HGB Conc 32.5 g/dL (31.5-36.5); Mean Corpuscular Volume 85 fL (80-100); Mean Platelet Volume 9.6 fL (9.1-12.4); NEUTROPHILS ABSOLUTE AUTO 9.48 K/mm3 (1.96-9.15); NEUTROPHILS PERCENT AUTO 87 % (41-73); Platelet Count 321 K/mm3 (150-400); RDW Coefficient Variation 14.6 % (11.7-14.2); RDW Standard Deviation 45.2 fL (35.1-46.3); Red Blood Cell Count 3.31 M/mm3 (4.30-5.90); White Blood Cell Count 10.91 K/mm3 (4.00-11.30)
[2024-04-05 05:45] LABS: Albumin, Blood 2.2 g/dL (3.4-5.0); Anion Gap 15 mmol/L (3-11); Blood Urea Nitrogen 74 mg/dL (8-24); Bun/Creatinine Ratio 19.8 (12.0-20.0); CO2, Blood 21 mmol/L (21-32); Calcium, Blood 8.1 mg/dL (8.5-10.1); Chloride, Blood 98 mmol/L (98-108); Creatinine, Blood 3.74 mg/dL (0.60-1.20); Glomerular Filtration Rate 17 (60-); Glucose, Blood 521 mg/dL (70-99); Potassium, Blood 4.2 mmol/L (3.5-5.5); Sodium, Blood 130 mmol/L (136-145)
[2024-04-05 07:13] VITALS: BP 179/94
[2024-04-05] MEDS ORDERED: Insulin Human Lispro 100 Units/ML 3ML Syringe SC ONE (10:40)
[2024-04-05] MEDS ORDERED: Insulin Human Lispro 100 Units/ML 3ML Syringe SC SCH (11:30)
[2024-04-05 11:38] VITALS: BP 143/78
[2024-04-05 15:02] VITALS: BP 149/81
--- NOTE | 2024-04-05 18:41 | NUR ---
SHIFT SUMMARY PT IS A/OX4. THIS MORNING BLOOD SUGARS ELEVATED IN THE 400'S, PROVIDER NOTIFIED, MEDICATED WITH 15 UNITS OF INSULIN. PT REMAINS ON RA, TELE RUNNING NORMAL SINUS RHYTHM. NS RUNNING @ 100 ML/HR. DRESSING TO WOUND CAME OFF THIS EVENING, COVERED WITH ABS PADS.
[2024-04-05 20:10] VITALS: BP 145/79
[2024-04-05] MEDS ORDERED: Heparin Sodium,Porcine 5,000 UNIT/0.5 ML SDV SC SCH (21:00)
[2024-04-05] MEDS ORDERED: Insulin Glargine-Yfgn 100 Unit/mL 3 ML SYR SC SCH (21:00)
[2024-04-06 03:06] VITALS: BP 154/81
[2024-04-06 04:28] LABS: BASOPHILS ABSOLUTE AUTO 0.04 K/mm3 (0.00-0.23); BASOPHILS PERCENT AUTO 1 % (0-2); EOSINOPHILS ABSOLUTE AUTO 0.36 K/mm3 (0.00-0.68); EOSINOPHILS PERCENT AUTO 4 % (0-6); Hematocrit 26.1 % (37.0-53.0); Hemoglobin 8.5 g/dL (13.5-17.5); IMMATURE GRAN ABSOLUTE AUTO 0.02 K/mm3 (0.00-0.10); IMMATURE GRAN PERCENT AUTO 0 % (0-1); LYMPHOCYTES ABSOLUTE AUTO 1.72 K/mm3 (0.84-5.20); LYMPHOCYTES PERCENT AUTO 21 % (21-46); MONOCYTES ABSOLUTE AUTO 0.78 K/mm3 (0.16-1.47); MONOCYTES PERCENT AUTO 10 % (4-13); Mean Corpuscular HGB 27.7 pg (26.0-34.0); Mean Corpuscular HGB Conc 32.6 g/dL (31.5-36.5); Mean Corpuscular Volume 85 fL (80-100); Mean Platelet Volume 9.3 fL (9.1-12.4); NEUTROPHILS ABSOLUTE AUTO 5.29 K/mm3 (1.96-9.15); NEUTROPHILS PERCENT AUTO 64 % (41-73); Platelet Count 327 K/mm3 (150-400); RDW Coefficient Variation 14.7 % (11.7-14.2); RDW Standard Deviation 45.9 fL (35.1-46.3); Red Blood Cell Count 3.07 M/mm3 (4.30-5.90); White Blood Cell Count 8.21 K/mm3 (4.00-11.30)
[2024-04-06 04:56] LABS: Anion Gap 12 mmol/L (3-11); Blood Urea Nitrogen 75 mg/dL (8-24); Bun/Creatinine Ratio 21.2 (12.0-20.0); CO2, Blood 21 mmol/L (21-32); Calcium, Blood 8.2 mg/dL (8.5-10.1); Chloride, Blood 104 mmol/L (98-108); Creatinine, Blood 3.53 mg/dL (0.60-1.20); Glomerular Filtration Rate 19 (60-); Glucose, Blood 216 mg/dL (70-99); Phosphorus, Blood 4.5 mg/dL (2.5-4.9); Potassium, Blood 3.9 mmol/L (3.5-5.5); Sodium, Blood 133 mmol/L (136-145); Vancomycin, Random 14.8 ug/mL
[2024-04-06 08:02] VITALS: BP 165/90
[2024-04-06 16:01] VITALS: BP 147/82
--- NOTE | 2024-04-06 16:27 | NUR ---
SHIFT SUMMARY PT IS A/OX4. INCREASED EPISODES OF PAIN TO THE LEFT LEG WHEN COMPARED TO YESTERDAY, MEDICATED WITH FENTANYL X2 AND OXYCODONE X2. THE PT HAD 2 BM'S THIS SHIFT USING THE BEDPAN. BLOOD SUGARS IMPROVED FROM YESTERDAY, IN THE 200'S THIS SHIFT. SURGICAL SITE IS C/D/I. PT REMAINS ON RA, SATS >98%. ON TELE RUNNING SINUS RHYTHM IN THE 60'S.
--- NOTE | 2024-04-06 17:40 | NUR ---
PT TO PACU FOR NERVE BLOCK TO THE LEFT LOWER EXTREMITY.
[2024-04-06 18:00] VITALS: BP 162/95
[2024-04-06] MEDS ORDERED: Acetaminophen 325 MG TABLET PO SCH (18:00)
[2024-04-06] MEDS ORDERED: Midazolam HCl 1MG / ML 2ML Vial ONE (18:05)
--- NOTE | 2024-04-06 18:11 | NUR ---
PT IN PACU FOR NERVE BLOCK. Zamzam KOHLI CRNA AT BEDSIDE CONSENTING PT
[2024-04-06] MEDS ORDERED: FentaNYL Citrate 50 MCG/ML 2 ML Injection ONE (18:13)
[2024-04-06] MEDS ORDERED: Ropivacaine 0.5% HCL/PF 5 MG/ML 30ML Vial ONE ×2 (18:17)
--- NOTE | 2024-04-06 18:27 | NUR ---
PROCEDURE TIME OUT FOR POPLITEAL AND ABDUCTOR BLOCK ON L SIDE BY Zamzam KOHLI SUPERVISOR EVAPORATOR
[2024-04-06 19:02] VITALS: BP 138/83
[2024-04-06 19:38] VITALS: BP 118/75
[2024-04-06] MEDS ORDERED: HydrALAZINE HCl 50 MG Tab PO SCH (21:00)
[2024-04-07 04:35] VITALS: BP 180/88
[2024-04-07 05:44] LABS: BASOPHILS ABSOLUTE AUTO 0.07 K/mm3 (0.00-0.23); BASOPHILS PERCENT AUTO 1 % (0-2); EOSINOPHILS PERCENT AUTO 5 % (0-6); Hemoglobin 8.5 g/dL (13.5-17.5); IMMATURE GRAN ABSOLUTE AUTO 0.06 K/mm3 (0.00-0.10); IMMATURE GRAN PERCENT AUTO 1 % (0-1); LYMPHOCYTES ABSOLUTE AUTO 1.61 K/mm3 (0.84-5.20); LYMPHOCYTES PERCENT AUTO 17 % (21-46); MONOCYTES ABSOLUTE AUTO 1.17 K/mm3 (0.16-1.47); MONOCYTES PERCENT AUTO 12 % (4-13); Mean Corpuscular HGB 27.1 pg (26.0-34.0); Mean Corpuscular HGB Conc 31.5 g/dL (31.5-36.5); Mean Corpuscular Volume 86 fL (80-100); Mean Platelet Volume 9.5 fL (9.1-12.4); NEUTROPHILS ABSOLUTE AUTO 6.22 K/mm3 (1.96-9.15); NEUTROPHILS PERCENT AUTO 65 % (41-73); Platelet Count 375 K/mm3 (150-400); RDW Coefficient Variation 14.8 % (11.7-14.2); RDW Standard Deviation 46.5 fL (35.1-46.3); Red Blood Cell Count 3.14 M/mm3 (4.30-5.90); White Blood Cell Count 9.63 K/mm3 (4.00-11.30)
[2024-04-07 06:30] LABS: Albumin, Blood 1.9 g/dL (3.4-5.0); Anion Gap 10 mmol/L (3-11); Blood Urea Nitrogen 72 mg/dL (8-24); Bun/Creatinine Ratio 19.5 (12.0-20.0); CO2, Blood 21 mmol/L (21-32); Calcium, Blood 8.3 mg/dL (8.5-10.1); Chloride, Blood 107 mmol/L (98-108); Creatinine, Blood 3.69 mg/dL (0.60-1.20); Glomerular Filtration Rate 18 (60-); Glucose, Blood 125 mg/dL (70-99); Phosphorus, Blood 4.5 mg/dL (2.5-4.9); Potassium, Blood 4.4 mmol/L (3.5-5.5); Sodium, Blood 134 mmol/L (136-145); Vancomycin, Random 12.7 ug/mL
[2024-04-07 08:22] VITALS: BP 147/75
[2024-04-07] MEDS ORDERED: AmLODIPine Besylate 5 MG Tab PO SCH (09:00)
[2024-04-07] MEDS ORDERED: Vancomycin HCL 1,000 MG in NS 250 ML IV ONE (10:35)
[2024-04-07] MEDS ORDERED: OXYC5 PO (14:58)
--- NOTE | 2024-04-07 16:05 | NUR ---
DISCHARGE SUMMARY: PT DISCHARGED HOME TODAY WITH HOME HEALTH SERVICES. PT AND EDUCATED ON DISCHARGE MEDICATIONS AND INSTRUCTIONS. CALLED REGARDING INSTRUCTIONS TO GO TO APPT WITH PCP ON 04/10 AT 1200 AND TO F/UP WITH DR. MAIER IN 3 DAYS. PT/ V/U. PT IV REMOVED BY MCKENNA MCHUGH. WOUND CARE COMPLETED TO [facility]. JANAE IN TACT, NO REDNESS, SWELLING OR DRAINAGE NOTED TO SITE. WOUND INTACT. PLACED GAUZE OVER SITE AND WRAPPED WITH KERLEX. SECURED WITH TAPE. ASSISTED PT/ WITH PACKING UP BELONGINGS AND GETTING PT DRESSED. PT WAS ABLE TO SELF TRANSFER FROM BED TO WHEELCHAIR WITH MINIMAL DIFFICULTY. PT ESCORTED TO POV VIA WHEELCHAIR BY NETWORK APPLICATIONS SPECIALIST. PER NETWORK APPLICATIONS SPECIALIST PT WAS ABLE TO SELF TRANSFER FROM WHEELCHAIR TO PASSENGER SEAT OF VEHICLE WITH ASSISTING.
[2024-04-07] MEDS ORDERED: BASAGLAR K100 UNIT/1 SC (16:19)
== END 2024-04-07 15:50 | disposition home health service (06) | DRG 240 ==
LOC: PCU 14:30 → MEDS 04-04 16:18
PROVIDERS: Family Medicine; Hospitalist; Orthopaedic Surgery Sports Medicine; Radiology Diagnostic Radiology; ADMIT Family Medicine
PROC: B41GZZZ Fluoroscopy of Left Lower Extremity Arteries (ICD-10-PCS; 2024-04-03)
PROC: 0Y6J0Z1 Detachment at Left Lower Leg, High, Open Approach (ICD-10-PCS; principal; 2024-04-04 14:30)
DX: E11.52 Type 2 diabetes mellitus with diabetic peripheral angiopathy with gangrene (principal); I70.262 Atherosclerosis of native arteries of extremities with gangrene, left leg; N17.9 Acute kidney failure, unspecified; N18.4 Chronic kidney disease, stage 4 (severe); L02.612 Cutaneous abscess of left foot; I70.222 Atherosclerosis of native arteries of extremities with rest pain, left leg; I12.9 Hypertensive chronic kidney disease with stage 1 through stage 4 chronic kidney disease, or unspecified chronic kidney disease; E11.22 Type 2 diabetes mellitus with diabetic chronic kidney disease; E11.621 Type 2 diabetes mellitus with foot ulcer; L97.523 Non-pressure chronic ulcer of other part of left foot with necrosis of muscle; D63.1 Anemia in chronic kidney disease; N40.0 Benign prostatic hyperplasia without lower urinary tract symptoms; E11.40 Type 2 diabetes mellitus with diabetic neuropathy, unspecified; F17.210 Nicotine dependence, cigarettes, uncomplicated; Z89.511 Acquired absence of right leg below knee; Z79.4 Long term (current) use of insulin; Z79.899 Other long term (current) drug therapy
CPT/HCPCS: 36415; 73630; 73700; 76937; 80048; 80053; 80069; 80202; 82728; 82947; 83036; 83540; 83550; 84100; 85025; 85610; 85730; 87040; 87081; 94760; 94762; 96374; 96375; 96376; 97110; 97161; 97166; 97530; 99152; 99153; A9270; C1751; C1769; C1887; C1894; G0378; J0171; J0360; J0690; J1100; J1644; J1815; J2250; J2371; J2405; J2543; J2704; J2795; J3010; J3370; J7030; J7040; J7050; Q9967

== ENCOUNTER 2024-04-19 20:35 | Emergency (ER) | payer OTHER ==
[~2024-04-19] VITALS: Ht 162.6 cm; Wt 97.5 kg
[~2024-04-19 20:35] MED LIST changes: +BASAGLAR K100 UNIT/1 SC; +METO5 PO; +SILVADENE20 G1 TOP; +TERBINAFINE
[2024-04-19 21:19] LABS: BASOPHILS ABSOLUTE AUTO 0.09 K/mm3 (0.00-0.23); BASOPHILS PERCENT AUTO 1 % (0-2); EOSINOPHILS ABSOLUTE AUTO 0.21 K/mm3 (0.00-0.68); EOSINOPHILS PERCENT AUTO 2 % (0-6); Hematocrit 31.5 % (37.0-53.0); Hemoglobin 10.2 g/dL (13.5-17.5); IMMATURE GRAN ABSOLUTE AUTO 0.03 K/mm3 (0.00-0.10); IMMATURE GRAN PERCENT AUTO 0 % (0-1); LYMPHOCYTES ABSOLUTE AUTO 1.39 K/mm3 (0.84-5.20); LYMPHOCYTES PERCENT AUTO 16 % (21-46); MONOCYTES ABSOLUTE AUTO 0.63 K/mm3 (0.16-1.47); MONOCYTES PERCENT AUTO 7 % (4-13); Mean Corpuscular HGB 27.7 pg (26.0-34.0); Mean Corpuscular HGB Conc 32.4 g/dL (31.5-36.5); Mean Corpuscular Volume 86 fL (80-100); Mean Platelet Volume 8.9 fL (9.1-12.4); NEUTROPHILS ABSOLUTE AUTO 6.62 K/mm3 (1.96-9.15); NEUTROPHILS PERCENT AUTO 74 % (41-73); Platelet Count 410 K/mm3 (150-400); RDW Coefficient Variation 15.6 % (11.7-14.2); RDW Standard Deviation 48.2 fL (35.1-46.3); Red Blood Cell Count 3.68 M/mm3 (4.30-5.90); White Blood Cell Count 8.97 K/mm3 (4.00-11.30)
[2024-04-19 21:39] LABS: Albumin, Blood 2.8 g/dL (3.4-5.0); Albumin/Globulin Ratio 0.6 (0.8-1.8); Bilirubin, Total 0.6 mg/dL (0.1-1.0); Bun/Creatinine Ratio 16.7 (12.0-20.0); Creatinine, Blood 3.35 mg/dL (0.60-1.20); Potassium, Blood 4.9 mmol/L (3.5-5.5); Total Protein, Blood 7.8 g/dL (6.4-8.2)
[2024-04-19] MEDS ORDERED: Albuterol 2.5 MG/3 ML VIAL INH ONE (22:30)
[2024-04-19] MEDS ORDERED: Labetalol HCL 5 MG/ML 4ML Injection (Single Dose) IV ONE (22:30)
[2024-04-20] MEDS ORDERED: RX Prepack Albuterol 1 PREPACK/6.7 GM INH UD ONE (01:40)
[2024-04-20 01:45] VITALS: BP 204/104
[2024-04-20] MEDS ORDERED: BASAGLAR K100 UNIT/6 SC (23:48)
== END 2024-04-20 01:56 | disposition home or self-care (01) ==
LOC: ER 20:35
PROVIDERS: Student in an Organized Health Care Education/Training Program
DX: I16.0 Hypertensive urgency (principal); R06.00 Dyspnea, unspecified; F17.200 Nicotine dependence, unspecified, uncomplicated; E11.9 Type 2 diabetes mellitus without complications; Z79.899 Other long term (current) drug therapy; Z79.4 Long term (current) use of insulin; Z89.512 Acquired absence of left leg below knee; Z89.511 Acquired absence of right leg below knee
CPT/HCPCS: 71046; 80053; 84484; 85025; 93005; 93010; 94640; 94664; 96374; 99285-25; A9270

== ENCOUNTER 2024-04-20 18:47 | Inpatient (IN) | payer OTHER ==
[~2024-04-20] VITALS: Ht 180.3 cm; Wt 85.9 kg
[~2024-04-20 18:47] MED LIST changes: +GABA100 PO; -NEURONTIN300 MG PO
[2024-04-20] MEDS ORDERED: Ipratropium/Albuterol SulF 2.5-0.5MG/3 ML Amp INH ONE (20:05)
[2024-04-20 20:25] LABS: BASOPHILS ABSOLUTE AUTO 0.11 K/mm3 (0.00-0.23); BASOPHILS PERCENT AUTO 1 % (0-2); EOSINOPHILS ABSOLUTE AUTO 0.22 K/mm3 (0.00-0.68); EOSINOPHILS PERCENT AUTO 3 % (0-6); Hematocrit 30.8 % (37.0-53.0); Hemoglobin 9.7 g/dL (13.5-17.5); IMMATURE GRAN ABSOLUTE AUTO 0.02 K/mm3 (0.00-0.10); IMMATURE GRAN PERCENT AUTO 0 % (0-1); LYMPHOCYTES ABSOLUTE AUTO 1.29 K/mm3 (0.84-5.20); LYMPHOCYTES PERCENT AUTO 16 % (21-46); MONOCYTES ABSOLUTE AUTO 0.61 K/mm3 (0.16-1.47); MONOCYTES PERCENT AUTO 8 % (4-13); Mean Corpuscular HGB 27.6 pg (26.0-34.0); Mean Corpuscular HGB Conc 31.5 g/dL (31.5-36.5); Mean Corpuscular Volume 88 fL (80-100); Mean Platelet Volume 9.1 fL (9.1-12.4); NEUTROPHILS ABSOLUTE AUTO 5.62 K/mm3 (1.96-9.15); NEUTROPHILS PERCENT AUTO 71 % (41-73); Platelet Count 349 K/mm3 (150-400); RDW Coefficient Variation 15.8 % (11.7-14.2); RDW Standard Deviation 50.4 fL (35.1-46.3); Red Blood Cell Count 3.51 M/mm3 (4.30-5.90); White Blood Cell Count 7.87 K/mm3 (4.00-11.30)
[2024-04-20 20:46] LABS: Albumin, Blood 2.8 g/dL (3.4-5.0); Albumin/Globulin Ratio 0.6 (0.8-1.8); Bilirubin, Total 0.6 mg/dL (0.1-1.0); Bun/Creatinine Ratio 17.6 (12.0-20.0); Calcium, Blood 9.1 mg/dL (8.5-10.1); Creatinine, Blood 3.47 mg/dL (0.60-1.20); Globulin, Blood 4.7 g/dL (2.2-4.0); Total Protein, Blood 7.5 g/dL (6.4-8.2)
[2024-04-20] MEDS ORDERED: Doxycycline Hyclate 100 MG TAB PO ONE (21:30)
[2024-04-20] MEDS ORDERED: Ipratropium/Albuterol SulF 2.5-0.5MG/3 ML Amp INH PRN (22:20)
[2024-04-20] MEDS ORDERED: HydrALAZINE HCl 20 MG / ML 1ML Vial IV PRN (22:20)
[2024-04-20] MEDS ORDERED: FLU VACC TS2024-25(6MOS UP)/PF 45 MCG/0.5 ML SYRINGE IM SCH (22:20)
[2024-04-20] MEDS ORDERED: Ondansetron HCl 2 MG / ML 2ML Vial IV PRN (22:20)
[2024-04-20] MEDS ORDERED: Azithromycin 500 MG in NS 250 ML IV SCH (22:29)
[2024-04-20] MEDS ORDERED: Enoxaparin 30 MG/0.3 ML SYR SC SCH (23:00)
[2024-04-20] MEDS ORDERED: BASAGLAR K100 UNIT/6 SC (23:48)
[2024-04-21] VITALS (9 sets, daily range): BP systolic 138–215; BP diastolic 79–115
[2024-04-21] MEDS ORDERED: MethylPREDNISolone Sod Succ 125 MG Vial IV SCH
[2024-04-21 00:02] LABS: Influenza A, PCR NEGATIVE (NEGATIVE); Influenza B, PCR NEGATIVE (NEGATIVE); Resp Syncytial Virus, PCR NEGATIVE (NEGATIVE); SARS-Cov-2 (COVID-19) PCR, MMC NEGATIVE (NEGATIVE)
[2024-04-21] MEDS ORDERED: OxyCODONE HCL 5 MG TAB PO PRN (01:55)
[2024-04-21] MEDS ORDERED: Furosemide 10 MG / ML 2ML Vial IV ONE (04:00)
[2024-04-21] MEDS ORDERED: Sodium Bicarb 8.4% 50 mEq Syringe IV ONE (04:00)
[2024-04-21] MEDS ORDERED: HydrALAZINE HCl 20 MG / ML 1ML Vial IV PRN (05:20)
[2024-04-21] MEDS ORDERED: Labetalol HCL 5 MG/ML 4ML Injection (Single Dose) IV ONE ×3 (06:35→15:35)
[2024-04-21] MEDS ORDERED: Insulin Human Lispro 100 Units/ML 3ML Syringe SC SCH ×2 (07:30→16:30)
[2024-04-21] MEDS ORDERED: Carvedilol 3.125 MG Tab PO SCH (08:00)
[2024-04-21] MEDS ORDERED: Calcium Acetate 667 MG Gel Cap PO SCH (08:30)
--- NOTE | 2024-04-21 08:38 | NUR ---
NOTE PT REFUSED AM MEDS. PT REFUSED LABS, STATES HE DOESN'T WANT TO GET CONTINUED TO POKED. PT WAS EDUCATED THE IMPORTANCE OF LABS FOR TREATMENT. PT STATES WANTING TO LEAVE AGAINST MEDICAL ADVICE. DR. IVERSON NOTIFIED. WAITING FOR 'S ARRIVAL TO DISCUSS RISKS/BENEFITS. PT CALL LIGHTS IN REACH.
[2024-04-21] MEDS ORDERED: Insulin Glargine-Yfgn 100 Unit/mL 3 ML SYR SC SCH (09:00)
[2024-04-21] MEDS ORDERED: AmLODIPine Besylate 5 MG Tab PO SCH (09:00)
[2024-04-21] MEDS ORDERED: Tamsulosin HCl 0.4 MG Cap PO SCH (09:00)
[2024-04-21] MEDS ORDERED: Gabapentin 100 MG Cap PO SCH (09:00)
[2024-04-21] MEDS ORDERED: Furosemide 10 MG/ML 4ML Vial IV SCH (10:00)
[2024-04-21 12:06] LABS: BASOPHILS ABSOLUTE AUTO 0.03 K/mm3 (0.00-0.23); BASOPHILS PERCENT AUTO 1 % (0-2); EOSINOPHILS ABSOLUTE AUTO 0.01 K/mm3 (0.00-0.68); EOSINOPHILS PERCENT AUTO 0 % (0-6); Hematocrit 30.2 % (37.0-53.0); Hemoglobin 9.8 g/dL (13.5-17.5); IMMATURE GRAN ABSOLUTE AUTO 0.02 K/mm3 (0.00-0.10); IMMATURE GRAN PERCENT AUTO 1 % (0-1); LYMPHOCYTES ABSOLUTE AUTO 0.42 K/mm3 (0.84-5.20); LYMPHOCYTES PERCENT AUTO 10 % (21-46); MONOCYTES ABSOLUTE AUTO 0.06 K/mm3 (0.16-1.47); MONOCYTES PERCENT AUTO 1 % (4-13); Mean Corpuscular HGB 27.8 pg (26.0-34.0); Mean Corpuscular HGB Conc 32.5 g/dL (31.5-36.5); Mean Corpuscular Volume 86 fL (80-100); Mean Platelet Volume 9.6 fL (9.1-12.4); NEUTROPHILS ABSOLUTE AUTO 3.66 K/mm3 (1.96-9.15); NEUTROPHILS PERCENT AUTO 87 % (41-73); Platelet Count 358 K/mm3 (150-400); RDW Coefficient Variation 15.9 % (11.7-14.2); RDW Standard Deviation 49.1 fL (35.1-46.3); Red Blood Cell Count 3.53 M/mm3 (4.30-5.90)
[2024-04-21 12:07] LABS: Albumin, Blood 2.8 g/dL (3.4-5.0); Albumin/Globulin Ratio 0.6 (0.8-1.8); Bilirubin, Total 0.8 mg/dL (0.1-1.0); Calcium, Blood 8.8 mg/dL (8.5-10.1); Creatinine, Blood 3.59 mg/dL (0.60-1.20); Potassium, Blood 5.4 mmol/L (3.5-5.5); Total Protein, Blood 7.8 g/dL (6.4-8.2)
--- NOTE | 2024-04-21 12:50 | NUR ---
NOTE PT COMPLAINT OF SOB. TOOK VITALS, BP WAS 214/113. HR 95. O2 95 ON ROOM AIR. PT THEN REPORTED BILATERAL SHOULDER PAIN. LUNG SOUNDS ARE CLEAR. DR. LAKHANI NOTIFIED, AND REPORTS GOING TO PUT ORDER IN FOR LABETALOL.
[2024-04-21] MEDS ORDERED: Carvedilol 3.125 MG Tab PO ONE (12:55)
[2024-04-21] MEDS ORDERED: Labetalol HCL 5 MG/ML 4ML Injection (Single Dose) IV PRN (13:00)
--- NOTE | 2024-04-21 15:54 | NUR ---
NOTE PT BLOOD PRESSURE REMAINS ELEVATED. CALLED DR. LAKHANI, HE ORDERED ANOTHER ONE TIME DOSE OF LABETALOL. PT BLOOD SUGARS REMAIN ELEVATED, DR. LAKHANI NOTIFIED. DR. LAKHANI VERIFIED Q2 CBG CHECKS. NO NEW INSULIN ORDERS AT THIS TIME.
[2024-04-21] MEDS ORDERED: Carvedilol 6.25 MG Tab PO SCH (17:00)
[2024-04-21 17:48] LABS: Bun/Creatinine Ratio 16.8 (12.0-20.0); Calcium, Blood 9.1 mg/dL (8.5-10.1); Creatinine, Blood 3.81 mg/dL (0.60-1.20); Potassium, Blood 5.2 mmol/L (3.5-5.5)
--- NOTE | 2024-04-21 18:42 | NUR ---
SHIFT SUMMARY PT A&OX4. PT ADMITTED DUE TO COPD EXACERBATION. PT CONVINCED PT TO STAY. PT REPORTS SOB AND RECIEVING RESPIRATORY THERAPY TREATMENTS. PT HAS BKA ON BLE. PT USES URINAL TO VOID. PT'S I&O'S BEING MONITORED. PT USES WHEELCHAIR AT BASELINE. BLOOD PRESSURES HAS BEEN ELEVATED THROUGH SHIFT, LAST BP WAS 173/108. BLOOD PRESSURES ARE DECREASING MINIMALY WITH LABETALOL. PT HAD ECHO TODAY. POWERGLIDE WAS PLACED DURING SHIFT. PT HAS Q2 BLOOD SUGAR CHECK ORDERS. BLOOD SUGARS BEING TREATED WITH A MEDIUM SLIDING SCALE ACHS ORDER. AT BEDSIDE. CALL LIGHT IN REACH.
[2024-04-21] MEDS ORDERED: NS 250 ML IV PRN (21:35)
[2024-04-21 22:53] LABS: Source, Urine Clean Catch
[2024-04-21 22:56] LABS: Bilirubin, Urine Neg (Neg); Blood, Urine 3+ (Neg); Glucose Qualitative, Urine 3+ (Neg); Ketones, Urine Neg (Neg); Leukocyte Esterase, Urine Neg (Neg); Nitrite, Urine Neg (Neg); Protein, Urine 4+ (Neg); Urobilinogen, Urine NORM (Normal)
[2024-04-21 23:02] LABS: Appearance, Urine Clear (Clear); Color, Urine Yellow (P-Yellow)
[2024-04-21 23:03] LABS: Amorphous Light (0-Heavy); Bacteria Few /hpf; Red Blood Cells, Urine 0-2 /hpf (0-2); Squamous Epithelial Cells Few /hpf (Few)
[2024-04-22 03:44] VITALS: BP 149/89
--- NOTE | 2024-04-22 06:11 | NUR ---
SHIFT SUMMARY: "ISAIAS" IS A&OX4. VSS, BLOOD PRESSURE SIGNIFICANTLY IMPROVED, NO ACUTE EVENTS OVERNIGHT. PT REPORTS MODERATE PAIN CONTROL WITH MEDICATIONS PER MAR AND REPORTS INCREASED APPETITE THIS MORNING. JANAE IN PLACE TO LEFT BKA, DRESSING IN PLACE TO RIGHT BKA. TELE IN PLACE, NO EVENTS OVERNIGHT. PT DID HAVE A BOWEL MOVEMENT, BUT HAS ONLY URINATED ONCE THIS SHIFT. PT IS ABLE TO TURN AND REPOSITION HIMSELF IN BED, ENCOURAGED TO MOVE HIMSELF TO CHANGE PRESSURE AND AVOID SKIN BREAKDOWN. POWERGLIDE TO MEG VELÁSQUEZ, ABLE TO DRAW LABS FROM IT THIS AM. HE IS LYING IN BED WITH THE CALL LIGHT IN REACH, BED IN LOWEST POSITION. WILL GIVE REPORT TO DAY SHIFT RN.
[2024-04-22 06:16] LABS: BASOPHILS ABSOLUTE AUTO 0.05 K/mm3 (0.00-0.23); BASOPHILS PERCENT AUTO 1 % (0-2); EOSINOPHILS ABSOLUTE AUTO 0.12 K/mm3 (0.00-0.68); EOSINOPHILS PERCENT AUTO 2 % (0-6); Hemoglobin 8.1 g/dL (13.5-17.5); IMMATURE GRAN ABSOLUTE AUTO 0.02 K/mm3 (0.00-0.10); IMMATURE GRAN PERCENT AUTO 0 % (0-1); LYMPHOCYTES ABSOLUTE AUTO 1.74 K/mm3 (0.84-5.20); LYMPHOCYTES PERCENT AUTO 22 % (21-46); MONOCYTES ABSOLUTE AUTO 0.57 K/mm3 (0.16-1.47); MONOCYTES PERCENT AUTO 7 % (4-13); Mean Corpuscular HGB 27.1 pg (26.0-34.0); Mean Corpuscular HGB Conc 31.2 g/dL (31.5-36.5); Mean Corpuscular Volume 87 fL (80-100); Mean Platelet Volume 8.9 fL (9.1-12.4); NEUTROPHILS ABSOLUTE AUTO 5.49 K/mm3 (1.96-9.15); NEUTROPHILS PERCENT AUTO 69 % (41-73); Platelet Count 308 K/mm3 (150-400); RDW Coefficient Variation 15.9 % (11.7-14.2); RDW Standard Deviation 50.5 fL (35.1-46.3); Red Blood Cell Count 2.99 M/mm3 (4.30-5.90); White Blood Cell Count 7.99 K/mm3 (4.00-11.30)
[2024-04-22 06:53] LABS: Bun/Creatinine Ratio 17.3 (12.0-20.0); Calcium, Blood 8.8 mg/dL (8.5-10.1); Creatinine, Blood 4.11 mg/dL (0.60-1.20); Potassium, Blood 4.5 mmol/L (3.5-5.5)
[2024-04-22 07:56] VITALS: BP 171/97
[2024-04-22] MEDS ORDERED: Carvedilol 6.25 MG Tab PO SCH (09:00)
[2024-04-22 16:40] VITALS: BP 164/95
--- NOTE | 2024-04-22 19:14 | NUR ---
SHIFT SUMMARY PT A&OX4. PT ADMITTED DUE TO COPD/PNEUMONIA. PT DID NOT REPORT SOB. PT PAIN MANAGED WITH OXY Q4. PT USES URINAL TO VOID. BILL MAIER WAS CONSULTED. CALLED DR. PLATA OFFICE ABOUT THE Fabian ASHFORD JANAE. HANGING FLAGS DECORATOR REPORTED WOULD RETURN CALL, CONTINUE TO WAIT FOR RETURN CALL. PT ON TELE. BLOOD PRESSURES TRENDING DOWN. BLOOD SUGARS, TRENDING DOWN. PT USES CALL LIGHT APPROPRIATELY, CALL LIGHT IN REACH.
[2024-04-22 20:34] VITALS: BP 147/89
[2024-04-22] MEDS ORDERED: Heparin Sodium,Porcine 5,000 UNIT/0.5 ML SDV SC SCH (21:00)
--- NOTE | 2024-04-23 03:03 | NUR ---
SHIFT SUMMARY: PT ALERT ORIENTED X 4 ABLE TO VERBALIZE NEEDS. REMAINS ON STRICT I&O ONLY URINATING ABOUT 100 CC AT A TIME. REMAINS ON LASIX TID VSS THIS SHIFT SATTING AT 96ON RA. C/O SHOULDER PAIN MEDICATED WITH OXY PRN. FSBS AC AND HS WAS 132. HAS A PICC LINE TO HIS RT UPPER ARM THAT IS SL. HAS A BILATERAL BKA WITH JANAE STILL INTACT TO LT BKA SITE. NO S/S INFECTION. NO C/O SOB THIS SHIFT. SLEEPING IN BED AT THIS TIME
[2024-04-23 04:31] VITALS: BP 138/86
[2024-04-23 04:41] LABS: BASOPHILS ABSOLUTE AUTO 0.08 K/mm3 (0.00-0.23); BASOPHILS PERCENT AUTO 1 % (0-2); EOSINOPHILS ABSOLUTE AUTO 0.33 K/mm3 (0.00-0.68); EOSINOPHILS PERCENT AUTO 6 % (0-6); Hematocrit 26.1 % (37.0-53.0); Hemoglobin 8.2 g/dL (13.5-17.5); IMMATURE GRAN ABSOLUTE AUTO 0.01 K/mm3 (0.00-0.10); IMMATURE GRAN PERCENT AUTO 0 % (0-1); LYMPHOCYTES ABSOLUTE AUTO 2.16 K/mm3 (0.84-5.20); LYMPHOCYTES PERCENT AUTO 36 % (21-46); MONOCYTES ABSOLUTE AUTO 0.48 K/mm3 (0.16-1.47); MONOCYTES PERCENT AUTO 8 % (4-13); Mean Corpuscular HGB 27.5 pg (26.0-34.0); Mean Corpuscular HGB Conc 31.4 g/dL (31.5-36.5); Mean Corpuscular Volume 88 fL (80-100); Mean Platelet Volume 9.4 fL (9.1-12.4); NEUTROPHILS PERCENT AUTO 49 % (41-73); Platelet Count 312 K/mm3 (150-400); RDW Coefficient Variation 16.2 % (11.7-14.2); RDW Standard Deviation 51.3 fL (35.1-46.3); Red Blood Cell Count 2.98 M/mm3 (4.30-5.90); White Blood Cell Count 5.96 K/mm3 (4.00-11.30)
[2024-04-23 04:57] LABS: Albumin, Blood 2.6 g/dL (3.4-5.0); Anion Gap 14 mmol/L (3-11); Blood Urea Nitrogen 87 mg/dL (8-24); Bun/Creatinine Ratio 20.4 (12.0-20.0); CO2, Blood 18 mmol/L (21-32); Calcium, Blood 8.8 mg/dL (8.5-10.1); Chloride, Blood 113 mmol/L (98-108); Creatinine, Blood 4.26 mg/dL (0.60-1.20); Glomerular Filtration Rate 15 (60-); Glucose, Blood 67 mg/dL (70-99); Iron Serum 42 ug/dL (65-175); Phosphorus, Blood 4.7 mg/dL (2.5-4.9); Potassium, Blood 5.2 mmol/L (3.5-5.5); Sodium, Blood 140 mmol/L (136-145); Total Iron Binding Capacity 247 ug/dL (250-450)
[2024-04-23 07:42] VITALS: BP 145/80
[2024-04-23] MEDS ORDERED: Epoetin Alfa-EPBX 10,000 Unit/ML 1ML Vial SC SCH (09:00)
[2024-04-23] MEDS ORDERED: Furosemide 10 MG/ML 4ML Vial IV SCH (09:00)
--- NOTE | 2024-04-23 09:09 | NUR ---
CALL PLACED TO DR. PAIGE OFFICE TO VERIFY HE WAS NOTIFIED OF PT IN HOSPITAL AND NEEDING JANAE REMOVED FROM LLE. PER [employer] OFFICER DR. PAIGE WAS NOTIFIED OF REQUEST 04/22/24 AT 1312.
[2024-04-23 16:09] VITALS: BP 168/94
--- NOTE | 2024-04-23 17:40 | NUR ---
SHIFT SUMMARY PT A&OX4. PT ADMITTED DUE TO COPD/PNEUMONIA. PT REPORTS NO CHEST DISCOMFORT BUT MINIMAL SOB. PT HOB ELEVATED. DR. MAIER SAW PT TODAY, REPORTED THAT PT IS DECLINING DIALYSIS. BP TRENDING DOWN. BLOOD SUGARS TRENDING DOWN. PT HAS BILATERAL BKA, JANAE PRESENT IN L BKA. PT EATS ADEQUATELY. PT VOIDS USING URINAL. PT REPORTS CHRONIC SHOULDER PAIN, MEDICATED PER EMAR. PT CALLS APPROPRIATELY, CALL LIGHT IN REACH.
[2024-04-23 19:47] VITALS: BP 153/95
[2024-04-24 03:51] VITALS: BP 132/78
--- NOTE | 2024-04-24 04:25 | NUR ---
SHIFT SUMMARY: PT ALERT ORIENTED ABLE TO VERBALIZE NEEDS. C/O SHOULDER PAIN MEDICATED WITH OXYCODONE WITH GOOD PAIN RELIEF. REMAINS ON A STRICT I&O. DRESSING WAS CHANGED TO RT LEG STUMP. HE HAS A AREA OF SCAB ON THE HEALED LT BKA SITE. FSBS DONE AC AND HS WAS 167 TONITE. REMAINS ON CONTACT ISOLATION R/T MRSA. REMAINS ON TELEMETRY AT R WITH A RATE OF 63. VSS ON RA SATTING AT 99%. JANAE ARE STILL INTACT TO LT BKA SITE. WAS CALLED YESTERDAY BUT NEVER CAME TO REMOVE THEM. PT SLEEPING IN BED AT THIS TIME.
[2024-04-24 04:58] LABS: BASOPHILS ABSOLUTE AUTO 0.07 K/mm3 (0.00-0.23); BASOPHILS PERCENT AUTO 1 % (0-2); EOSINOPHILS ABSOLUTE AUTO 0.33 K/mm3 (0.00-0.68); EOSINOPHILS PERCENT AUTO 6 % (0-6); Hematocrit 26.2 % (37.0-53.0); Hemoglobin 8.2 g/dL (13.5-17.5); IMMATURE GRAN ABSOLUTE AUTO 0.01 K/mm3 (0.00-0.10); IMMATURE GRAN PERCENT AUTO 0 % (0-1); LYMPHOCYTES ABSOLUTE AUTO 1.76 K/mm3 (0.84-5.20); LYMPHOCYTES PERCENT AUTO 30 % (21-46); MONOCYTES ABSOLUTE AUTO 0.44 K/mm3 (0.16-1.47); MONOCYTES PERCENT AUTO 8 % (4-13); Mean Corpuscular HGB 27.6 pg (26.0-34.0); Mean Corpuscular HGB Conc 31.3 g/dL (31.5-36.5); Mean Corpuscular Volume 88 fL (80-100); Mean Platelet Volume 9.1 fL (9.1-12.4); NEUTROPHILS ABSOLUTE AUTO 3.17 K/mm3 (1.96-9.15); NEUTROPHILS PERCENT AUTO 55 % (41-73); Platelet Count 291 K/mm3 (150-400); RDW Coefficient Variation 15.9 % (11.7-14.2); RDW Standard Deviation 51.7 fL (35.1-46.3); Red Blood Cell Count 2.97 M/mm3 (4.30-5.90); White Blood Cell Count 5.78 K/mm3 (4.00-11.30)
[2024-04-24 05:19] LABS: Albumin, Blood 2.6 g/dL (3.4-5.0); Anion Gap 13 mmol/L (3-11); Blood Urea Nitrogen 91 mg/dL (8-24); Bun/Creatinine Ratio 20.6 (12.0-20.0); CO2, Blood 20 mmol/L (21-32); Calcium, Blood 8.7 mg/dL (8.5-10.1); Chloride, Blood 110 mmol/L (98-108); Creatinine, Blood 4.42 mg/dL (0.60-1.20); Glomerular Filtration Rate 14 (60-); Glucose, Blood 220 mg/dL (70-99); Phosphorus, Blood 5.2 mg/dL (2.5-4.9); Sodium, Blood 138 mmol/L (136-145)
[2024-04-24 07:33] VITALS: BP 145/79
[2024-04-24] MEDS ORDERED: HyDROXyzine HCl 10 MG Tab PO PRN (08:55)
[2024-04-24 15:44] VITALS: BP 146/80
--- NOTE | 2024-04-24 16:38 | NUR ---
SHIFT SUMMARY; PATIENT HAD UNEVENTFUL DAY. REMAINS ON BEDREST. HE COMPLAINS OF PAIN AND IS MEDICATED X 3 WITH OXYCODONE FOR PAIN / WITH GOOD RESULTS. HIS VITAL SIGNS ARE STABLE. PATIENT IS SLIGHLTY HYPERTENSIVE AT 146/73 HR IS 63. HE DENIES ANY CHEST PAIN OR PRESSURE. REMANS IN NSR PER TELE GYM ATTENDANT. IS NOTIFIED ABOUT PATIENT NEEDING JANAE REMOVED FROM BKA. VERBAL ORDER FOR STERI STRIPS,MASTISOL, AND STAPLE REMOVER AT BEDSIDE. HE WILL COME THIS AFTERNOON AND REMOVE JANAE AND CHECK BKA WOUND. WILL CONTINUE TO MONITOR THIS PATIENT CLOSELY UNTIL REPORT AND HAND OFF TO NOC SHIFT RN.
[2024-04-24 19:35] VITALS: BP 125/70
[2024-04-24] MEDS ORDERED: ROSUVASTATIN CAL5 MG PO (19:49)
[2024-04-24] MEDS ORDERED: AVAPRO300 MG PO (19:51)
[2024-04-25 02:42] VITALS: BP 133/84
--- NOTE | 2024-04-25 04:38 | NUR ---
SHIFT SUMMARY PT ALERT ORIENTED ABLE TO VERBALIZE NEEDS. HAS BEEN MORE GROGGY THIS SHIFT. WAKES UP WHEN SPOKEN TO BUT DRIFTS BACK OFF TO SLEEP. VSS ON RA SATTING AT 90%. NO C/O PAIN THIS SHIFT. REMAINS ON TELEMETRY AT SINUS CLINT WITH A RATE OF 57. DRESSING INTACT TO BILAT STUMPS. FSBS AC AND HS WAS 186. POWER GLIDE INTACT TO LT ARM.REMAINS ON A 1500ML FLUID RESTRICTION STRICT I&OS AND DAILY WEIGHTS. HES DUE TO START DIALYSIS IN THE AM. RESTING IN BED AT THIS TIME
[2024-04-25 04:51] LABS: BASOPHILS ABSOLUTE AUTO 0.07 K/mm3 (0.00-0.23); BASOPHILS PERCENT AUTO 1 % (0-2); EOSINOPHILS ABSOLUTE AUTO 0.36 K/mm3 (0.00-0.68); EOSINOPHILS PERCENT AUTO 6 % (0-6); Hemoglobin 8.5 g/dL (13.5-17.5); IMMATURE GRAN ABSOLUTE AUTO 0.02 K/mm3 (0.00-0.10); IMMATURE GRAN PERCENT AUTO 0 % (0-1); LYMPHOCYTES ABSOLUTE AUTO 1.77 K/mm3 (0.84-5.20); LYMPHOCYTES PERCENT AUTO 30 % (21-46); MONOCYTES PERCENT AUTO 8 % (4-13); Mean Corpuscular HGB 28.1 pg (26.0-34.0); Mean Corpuscular HGB Conc 31.5 g/dL (31.5-36.5); Mean Corpuscular Volume 89 fL (80-100); Mean Platelet Volume 10.1 fL (9.1-12.4); NEUTROPHILS ABSOLUTE AUTO 3.24 K/mm3 (1.96-9.15); NEUTROPHILS PERCENT AUTO 54 % (41-73); Platelet Count 304 K/mm3 (150-400); RDW Coefficient Variation 15.9 % (11.7-14.2); RDW Standard Deviation 51.8 fL (35.1-46.3); Red Blood Cell Count 3.03 M/mm3 (4.30-5.90); White Blood Cell Count 5.96 K/mm3 (4.00-11.30)
[2024-04-25 05:26] LABS: Albumin, Blood 2.7 g/dL (3.4-5.0); Anion Gap 11 mmol/L (3-11); Blood Urea Nitrogen 94 mg/dL (8-24); Bun/Creatinine Ratio 20.4 (12.0-20.0); CO2, Blood 21 mmol/L (21-32); Calcium, Blood 8.7 mg/dL (8.5-10.1); Chloride, Blood 109 mmol/L (98-108); Glomerular Filtration Rate 14 (60-); Glucose, Blood 187 mg/dL (70-99); Sodium, Blood 136 mmol/L (136-145)
[2024-04-25 07:33] VITALS: BP 143/85
[2024-04-25] MEDS ORDERED: Vitamin B Cmplx/Vit C/Folic Ac 1 Tab PO SCH (09:00)
--- NOTE | 2024-04-25 13:15 | NUR ---
Pt. came down to the Dialysis room for the initiation of his tx. After assessing his fistula, it looked and felt great to use. This staff used lidocaine and stuck pts fistula with a 17g needle. It immediately started swelling as soon as the bevel went in. Dr. Guerrero was notified and pt was returned to his room.
--- NOTE | 2024-04-25 14:29 | NUR ---
SHIFT SUMMARY; PATIENT RETURNED FROM DIALYSIS. THEY WERE UNABLE TO DO DIALYSIS FISTULA WAS NOT READY YET. PER REPORT STARTED TO SELL AFTER IT WAS ACCESSED. WAS NOTIFIED BY TANGLED YARN WORKER AND HAYDE REDDY. PATIENT RETURNED TO ROOM. VERY SEDATE. DECISION TO HOLD GABAPENTIN FOR SEDATION. VITAL SIGNS ARE STABLE. PATIENT IS NOT FEBRILE. ATE GOOD BREAKFAST. MINIMAL LUNCH. IS SLEEPING VERY SOUNDLY AT THIS TIME. ROUSES TO VERBAL STIMULI BUT RETURNS TO SLEEP RAPIDLY. WILL CONTINUE TO MONITOR THIS PATIENT CLOSELY UNTIL REPORT AND HAND OFF TO NOC SHIFT RN.
[2024-04-25 16:01] VITALS: BP 137/79
[2024-04-25 19:20] VITALS: BP 147/84
[2024-04-26 02:11] VITALS: BP 138/76
[2024-04-26 05:02] LABS: BASOPHILS ABSOLUTE AUTO 0.07 K/mm3 (0.00-0.23); BASOPHILS PERCENT AUTO 1 % (0-2); EOSINOPHILS ABSOLUTE AUTO 0.39 K/mm3 (0.00-0.68); EOSINOPHILS PERCENT AUTO 6 % (0-6); Hematocrit 27.5 % (37.0-53.0); Hemoglobin 8.5 g/dL (13.5-17.5); IMMATURE GRAN ABSOLUTE AUTO 0.02 K/mm3 (0.00-0.10); IMMATURE GRAN PERCENT AUTO 0 % (0-1); LYMPHOCYTES ABSOLUTE AUTO 1.85 K/mm3 (0.84-5.20); LYMPHOCYTES PERCENT AUTO 28 % (21-46); MONOCYTES ABSOLUTE AUTO 0.48 K/mm3 (0.16-1.47); MONOCYTES PERCENT AUTO 7 % (4-13); Mean Corpuscular HGB 27.8 pg (26.0-34.0); Mean Corpuscular HGB Conc 30.9 g/dL (31.5-36.5); Mean Corpuscular Volume 90 fL (80-100); Mean Platelet Volume 9.9 fL (9.1-12.4); NEUTROPHILS ABSOLUTE AUTO 3.84 K/mm3 (1.96-9.15); NEUTROPHILS PERCENT AUTO 58 % (41-73); Platelet Count 293 K/mm3 (150-400); RDW Coefficient Variation 15.8 % (11.7-14.2); RDW Standard Deviation 51.9 fL (35.1-46.3); Red Blood Cell Count 3.06 M/mm3 (4.30-5.90); White Blood Cell Count 6.65 K/mm3 (4.00-11.30)
[2024-04-26 05:22] LABS: Albumin, Blood 2.7 g/dL (3.4-5.0); Anion Gap 11 mmol/L (3-11); Blood Urea Nitrogen 101 mg/dL (8-24); Bun/Creatinine Ratio 22.7 (12.0-20.0); CO2, Blood 19 mmol/L (21-32); Calcium, Blood 8.6 mg/dL (8.5-10.1); Chloride, Blood 110 mmol/L (98-108); Creatinine, Blood 4.44 mg/dL (0.60-1.20); Glomerular Filtration Rate 14 (60-); Glucose, Blood 276 mg/dL (70-99); Phosphorus, Blood 4.6 mg/dL (2.5-4.9); Potassium, Blood 5.1 mmol/L (3.5-5.5); Sodium, Blood 135 mmol/L (136-145)
--- NOTE | 2024-04-26 06:41 | NUR ---
A04 PT REPORTS BEEN SLEEPING ALOT TODAY/TONIGHT, PAIN TO SHOULDERS HELD PT AROUSABLE WITH VERBAL HOWEVER REMAINS SLEEPY, AV FISTULA W THRILL AND BRUIT PRESENT, ONE INC EPISODE, POWERGLIDE TO L ARM PATENT, DRESSING TO LBKA DRY INTACT, MEPILEX TO R RBKA WOUND, CONTACT PRECAUTIONS, FALL PRECAUTIONS MAINTAINED.
[2024-04-26 07:57] VITALS: BP 165/85
[2024-04-26] MEDS ORDERED: Bumetanide 0.25 MG/ML 4ML ViaL IV SCH (09:00)
[2024-04-26] MEDS ORDERED: Metolazone 5 MG Tab PO SCH (09:00)
--- NOTE | 2024-04-26 10:24 | NUR ---
CALLED [facility] H/R 57-58 WILL REVIEW LONG ACTING INSULIN.
[2024-04-26 15:09] VITALS: BP 140/73
--- NOTE | 2024-04-26 16:22 | NUR ---
PATIENT QUESTIONING WHAT PLAN IS. UPON READING DR MAIER'S LAST CHART NOTE, IT APPEARS PATIENT WILL BE DIURESED T/O THE AND WILL DISCUSS PLACEMENT OF TUNNELED ACCESS SUNDAY. INFORMATION RELAYED TO PATIENT . EDUCATION PROVIDED. , PADMINI, EXPRESSES APPRECIATION AND IS LEAVING FOR THE NIGHT.
--- NOTE | 2024-04-26 17:16 | NUR ---
PT IRRITABLE TODAY. SLEEPING OFTEN. IRRITABLE WITH WHEN SHE HERE. LEFT ARM SOME TODAY. STATES FROM IV POKES. NO OTHER NEW CONCERNS NOTED. BED IN LOW POSITION, CALL LITE IN REACH. CALLS APPROP
[2024-04-26 19:27] VITALS: BP 136/79
[2024-04-27 02:32] VITALS: BP 142/74
[2024-04-27 05:08] LABS: BASOPHILS ABSOLUTE AUTO 0.05 K/mm3 (0.00-0.23); BASOPHILS PERCENT AUTO 1 % (0-2); EOSINOPHILS ABSOLUTE AUTO 0.39 K/mm3 (0.00-0.68); EOSINOPHILS PERCENT AUTO 6 % (0-6); Hemoglobin 8.5 g/dL (13.5-17.5); IMMATURE GRAN ABSOLUTE AUTO 0.03 K/mm3 (0.00-0.10); IMMATURE GRAN PERCENT AUTO 0 % (0-1); LYMPHOCYTES ABSOLUTE AUTO 1.86 K/mm3 (0.84-5.20); LYMPHOCYTES PERCENT AUTO 26 % (21-46); MONOCYTES ABSOLUTE AUTO 0.57 K/mm3 (0.16-1.47); MONOCYTES PERCENT AUTO 8 % (4-13); Mean Corpuscular HGB 27.9 pg (26.0-34.0); Mean Corpuscular HGB Conc 31.5 g/dL (31.5-36.5); Mean Corpuscular Volume 89 fL (80-100); Mean Platelet Volume 10.6 fL (9.1-12.4); NEUTROPHILS ABSOLUTE AUTO 4.18 K/mm3 (1.96-9.15); NEUTROPHILS PERCENT AUTO 59 % (41-73); Platelet Count 311 K/mm3 (150-400); RDW Coefficient Variation 15.9 % (11.7-14.2); RDW Standard Deviation 50.8 fL (35.1-46.3); Red Blood Cell Count 3.05 M/mm3 (4.30-5.90); White Blood Cell Count 7.08 K/mm3 (4.00-11.30)
[2024-04-27 05:34] LABS: Albumin, Blood 2.6 g/dL (3.4-5.0); Anion Gap 11 mmol/L (3-11); Blood Urea Nitrogen 104 mg/dL (8-24); Bun/Creatinine Ratio 23.6 (12.0-20.0); CO2, Blood 20 mmol/L (21-32); Calcium, Blood 8.9 mg/dL (8.5-10.1); Chloride, Blood 108 mmol/L (98-108); Glomerular Filtration Rate 14 (60-); Glucose, Blood 343 mg/dL (70-99); Phosphorus, Blood 4.5 mg/dL (2.5-4.9); Potassium, Blood 5.3 mmol/L (3.5-5.5); Sodium, Blood 134 mmol/L (136-145)
--- NOTE | 2024-04-27 07:37 | NUR ---
AO 4 PT RESTED MOST OF NIGHT, C/O PAIN TO SHOULDERS REPOSITIONED, MEDICATED W SCHEDULED MEDICATIONS, RESTED MOST OF NIGHT, REPORT "NOT SLEEPY YESTERDAY", THRILL AND BRUIT PRESENT, TELE 60-61 BPM, CURRENTLY SINUS RHYTHM , DRESSING TO FLORENCIA STUMPS INTACT, AM LAB DRAW FROM [facility], CAPS CHANGED. CALL LIGHT WN REACH FALL PRECAUTIONS MAINTAINED.
[2024-04-27 07:38] VITALS: BP 130/70
[2024-04-27] MEDS ORDERED: Insulin Glargine-Yfgn 100 Unit/mL 3 ML SYR SC SCH (08:00)
[2024-04-27 16:09] VITALS: BP 106/55
--- NOTE | 2024-04-27 17:30 | NUR ---
CALLED DR LAKHANI RE BP 106/55, PULSE 53. STATES GIVE BUMEX NOW AND RECHECK BP, GIVE COREG IF SBP > 100 AND PULSE >60. IF NOT, HOLD COREG
[2024-04-27 18:25] VITALS: BP 129/62
[2024-04-27 19:11] VITALS: BP 129/71
[2024-04-28 02:05] VITALS: BP 126/72
[2024-04-28 05:35] LABS: BASOPHILS ABSOLUTE AUTO 0.07 K/mm3 (0.00-0.23); BASOPHILS PERCENT AUTO 1 % (0-2); EOSINOPHILS ABSOLUTE AUTO 0.41 K/mm3 (0.00-0.68); EOSINOPHILS PERCENT AUTO 6 % (0-6); Hematocrit 25.7 % (37.0-53.0); Hemoglobin 8.2 g/dL (13.5-17.5); IMMATURE GRAN ABSOLUTE AUTO 0.02 K/mm3 (0.00-0.10); IMMATURE GRAN PERCENT AUTO 0 % (0-1); LYMPHOCYTES ABSOLUTE AUTO 1.84 K/mm3 (0.84-5.20); LYMPHOCYTES PERCENT AUTO 27 % (21-46); MONOCYTES ABSOLUTE AUTO 0.66 K/mm3 (0.16-1.47); MONOCYTES PERCENT AUTO 10 % (4-13); Mean Corpuscular HGB 27.9 pg (26.0-34.0); Mean Corpuscular HGB Conc 31.9 g/dL (31.5-36.5); Mean Corpuscular Volume 87 fL (80-100); Mean Platelet Volume 10.3 fL (9.1-12.4); NEUTROPHILS ABSOLUTE AUTO 3.88 K/mm3 (1.96-9.15); NEUTROPHILS PERCENT AUTO 56 % (41-73); Platelet Count 307 K/mm3 (150-400); RDW Coefficient Variation 15.9 % (11.7-14.2); RDW Standard Deviation 50.7 fL (35.1-46.3); Red Blood Cell Count 2.94 M/mm3 (4.30-5.90); White Blood Cell Count 6.88 K/mm3 (4.00-11.30)
[2024-04-28 05:57] LABS: Albumin, Blood 2.6 g/dL (3.4-5.0); Anion Gap 11 mmol/L (3-11); Blood Urea Nitrogen 111 mg/dL (8-24); Bun/Creatinine Ratio 23.5 (12.0-20.0); CO2, Blood 21 mmol/L (21-32); Calcium, Blood 8.5 mg/dL (8.5-10.1); Chloride, Blood 107 mmol/L (98-108); Creatinine, Blood 4.72 mg/dL (0.60-1.20); Glomerular Filtration Rate 13 (60-); Glucose, Blood 226 mg/dL (70-99); Phosphorus, Blood 4.8 mg/dL (2.5-4.9); Potassium, Blood 4.6 mmol/L (3.5-5.5); Sodium, Blood 134 mmol/L (136-145)
--- NOTE | 2024-04-28 06:13 | NUR ---
SHIFT SUMMARY PT IS A&OX3. VSS ON RA. PER TELEMETRY PT IS SB @ 59 c 1st degree block. C/O PAIN 8/10 IN BILAT SHOULDERS. MEDICATED WITH PRN 5MG PO OXYCODONE. PT IS LETHARGIC, FALLS ASLEEP DURING CONVERSATION. TOLERATING A CONS CARB DIET, WITH 1.5L FLUID RESTRICTION. RE-EDUCATED PT ON THE IMPORTANCE HE IS COMPLIANT WITH HIS FLUID RESTRICTION. ISAIAS USES HIS URINAL IN BED INDEPENDENTLY. THERE WAS AN ENITRE BED CHANGE D/T HIM SPILLING IT. VOIDING ADEQUATE AMOUNTS OF CLEAR, LIGHT YELLOW URINE. NO BM THIS SHIFT. DRESSINGS TO BILAT BKA, C/D/I. REPOSITIONED TOLERATED. CONTACT PRECAUTIONS MAINTAINED FOR MRSA. BED IN LOWEST POSITION, CALL LIGHT WITHIN REACH.
[2024-04-28 07:32] VITALS: BP 136/75
[2024-04-28 09:48] LABS: HEPATITIS B SURFACE ANTIGEN Negative (Negative)
[2024-04-28 10:36] LABS: HEPATITIS A ANTIBODY, IGM Negative (Negative); HEPATITIS B CORE ANTIBODY, IGM Negative (Negative); HEPATITIS B SURFACE ANTIGEN Negative (Negative); HEPATITIS C AB CIA INTERP High Pos (Negative); HEPATITIS C ANTIBODY CIA INDEX >11.00 IV
[2024-04-28 15:12] VITALS: BP 121/66
--- NOTE | 2024-04-28 16:49 | NUR ---
SHIFT SUMMARY PT CONT LEVEL OF CARE WITH NO ACUTE CHANGES NOTED. PT REMAINS A&O X4 AND BEDREST THIS SHIFT. PT NOTED TO BE UNCOMPLIENT WITH HIS FLUID RESTRICTION PT HAD FRIEND/FAMILY BRING IN A DRINK FROM A CONVIENT STORE IN A 32 OZ CUP. PT IS ALSO UNCOMPLIENT WIHT HIS DIET RESTRICTION ALSO FAMILY/FRIEND HAD BROUGHT IN FOOD. PT EDUCATED AND STATED HE DIDNT CARE HE WAS GOING TO EAT AND DRINK WHAT EVER HE WANTED. DSG CHANGED TO Adri ASHFORD THIS SHIFT. Fabian ASHFORD DSG CHANGED THIS SHIFT STERI STRIPS NOTED TO BE IN PLACE TO INCISION SITE WOUND WRAPPED WIHT TAMERA AND SECURED WITH TAPE.
[2024-04-28 19:32] VITALS: BP 139/69
[2024-04-29 01:11] LABS: QUANTIFERON MITOGEN MINUS NIL 9.95 IU/mL; QUANTIFERON NIL 0.05 IU/mL; QUANTIFERON PLUS TB1 MINUS NIL 0.02 IU/mL (<=0.34)
[2024-04-29 03:34] VITALS: BP 137/72
[2024-04-29 07:12] VITALS: BP 134/74
[2024-04-29 07:12] LABS: International Normalized Ratio 1.03
[2024-04-29 07:16] LABS: BASOPHILS ABSOLUTE AUTO 0.07 K/mm3 (0.00-0.23); BASOPHILS PERCENT AUTO 1 % (0-2); EOSINOPHILS ABSOLUTE AUTO 0.42 K/mm3 (0.00-0.68); EOSINOPHILS PERCENT AUTO 6 % (0-6); Hematocrit 26.8 % (37.0-53.0); Hemoglobin 8.7 g/dL (13.5-17.5); IMMATURE GRAN ABSOLUTE AUTO 0.02 K/mm3 (0.00-0.10); IMMATURE GRAN PERCENT AUTO 0 % (0-1); LYMPHOCYTES ABSOLUTE AUTO 1.79 K/mm3 (0.84-5.20); LYMPHOCYTES PERCENT AUTO 26 % (21-46); MONOCYTES ABSOLUTE AUTO 0.61 K/mm3 (0.16-1.47); MONOCYTES PERCENT AUTO 9 % (4-13); Mean Corpuscular HGB 28.2 pg (26.0-34.0); Mean Corpuscular HGB Conc 32.5 g/dL (31.5-36.5); Mean Corpuscular Volume 87 fL (80-100); Mean Platelet Volume 10.3 fL (9.1-12.4); NEUTROPHILS ABSOLUTE AUTO 3.94 K/mm3 (1.96-9.15); NEUTROPHILS PERCENT AUTO 58 % (41-73); Platelet Count 340 K/mm3 (150-400); RDW Coefficient Variation 15.9 % (11.7-14.2); RDW Standard Deviation 50.4 fL (35.1-46.3); Red Blood Cell Count 3.08 M/mm3 (4.30-5.90); White Blood Cell Count 6.85 K/mm3 (4.00-11.30)
--- NOTE | 2024-04-29 07:45 | NUR ---
SHIFT SUMMARY PT IS A&OX3. VSS ON RA. PER TELEMETRY PT IS SB @ 56. C/O PAIN 02/08 IN BILAT SHOULDERS. MEDICATED WITH PRN 5MG PO OXYCODONE. PT IS NOT UNDERSTABDING HIS FLUID RESTRICTION, AND BECAME VULGAR AND RUDE WHEN I TOLD HIM HE WAS AT HIS LIMIT FOR THE DAY. I TOLD HIM TO TALK TO ME NICELY WITH RESPECT, HE PROCEDED NOT TOO. I LEFT THE ROOM, AND WENT AND SPOKE TO MY CHARGE NURSE. WE THEN WENT INTO PT'S ROOM TOGETHER TO GIVE HIM A PRINT-OUT ABOUT APPROPRIATE BEHAVIOR IN THE HOSPITAL, PASS HIS HS MEDICATIONS AND DO AN ASSESSMENT. HE THEN APPOLOGIZED MULTIPLE TIMES ABOUT HIS POOR BEHAVIOR, AND BECAME TEARFUL. I TOLD HIM THANK YOU FOR THE APPOLOGY AND I ACCEPT, AND WOULD LIKE TO CONTINUE TO BE HIS NURSE. THE REST OF THE NOC WENT MUCH BETTER. TOLERATING A CONS CARB DIET, WITH 1.5L FLUID RESTRICTION. RE-EDUCATED PT ON THE IMPORTANCE HE IS COMPLIANT WITH HIS FLUID RESTRICTION. ISAIAS USES HIS URINAL IN BED INDEPENDENTLY. VOIDING ADEQUATE AMOUNTS OF CLEAR, LIGHT YELLOW URINE. NO BM THIS SHIFT. DRESSINGS TO BILAT BKA, C/D/I. REPOSITIONED TOLERATED. CONTACT PRECAUTIONS MAINTAINED FOR MRSA. BED IN LOWEST POSITION, CALL LIGHT WITHIN REACH.
--- NOTE | 2024-04-29 09:25 | NUR ---
MAD Consult received this AM from last night. Phone call to RN to check patient status. Patient behavior improved after conversatin about behavior last night with no current issues. Per RN no additional coversation necessary with patient at this time, but she will contact Threat Assessment Team if more action is needed.
[2024-04-29 15:11] VITALS: BP 135/72
[2024-04-29 15:47] LABS: HEPATITIS B SURFACE ANTIGEN Negative (Negative)
[2024-04-29 19:08] LABS: Albumin, Blood 2.8 g/dL (3.4-5.0); Anion Gap 12 mmol/L (3-11); Blood Urea Nitrogen 119 mg/dL (8-24); Bun/Creatinine Ratio 24.4 (12.0-20.0); CO2, Blood 22 mmol/L (21-32); Calcium, Blood 9.7 mg/dL (8.5-10.1); Chloride, Blood 107 mmol/L (98-108); Creatinine, Blood 4.88 mg/dL (0.60-1.20); Glomerular Filtration Rate 13 (60-); Glucose, Blood 164 mg/dL (70-99); Phosphorus, Blood 4.7 mg/dL (2.5-4.9); Potassium, Blood 4.3 mmol/L (3.5-5.5); Sodium, Blood 137 mmol/L (136-145)
[2024-04-29 19:09] VITALS: BP 128/73
--- NOTE | 2024-04-29 19:13 | NUR ---
SHIFT [place] FOLLOWED UP ON CONSULT WITH INTERNENTIONAL RADIOLOGY, JIMENEZ PAINTER. WHO SEEMED UNAWARE PT WAS ON THEIR CONSULT LIST. DR STATED HE WOULD FIT IN PT TODAY SO PT WAS MADE NPO AT [facility]. ATTEMPTED TO REACH OUT TO INTERVENTIONAL RADIOLODY AT 1730 WITH NO ANSWER AND NO CALL BACK. PASSED ON TO [facility] OFFICER DR IVERSON OK'D TO FEED PT TONIHGT AND MAKE NPO FOR BREAKFAST. PRN OXY GIVEN TWICE THIS SHIFT. URINE OUTPUT VIA URINAL
[2024-04-30] VITALS (22 sets, daily range): BP systolic 107–158; BP diastolic 48–90
[2024-04-30 06:19] LABS: BASOPHILS ABSOLUTE AUTO 0.05 K/mm3 (0.00-0.23); BASOPHILS PERCENT AUTO 1 % (0-2); EOSINOPHILS ABSOLUTE AUTO 0.49 K/mm3 (0.00-0.68); EOSINOPHILS PERCENT AUTO 7 % (0-6); Hematocrit 27.5 % (37.0-53.0); Hemoglobin 9.1 g/dL (13.5-17.5); IMMATURE GRAN ABSOLUTE AUTO 0.02 K/mm3 (0.00-0.10); IMMATURE GRAN PERCENT AUTO 0 % (0-1); LYMPHOCYTES ABSOLUTE AUTO 1.77 K/mm3 (0.84-5.20); LYMPHOCYTES PERCENT AUTO 26 % (21-46); MONOCYTES ABSOLUTE AUTO 0.64 K/mm3 (0.16-1.47); MONOCYTES PERCENT AUTO 10 % (4-13); Mean Corpuscular HGB 28.3 pg (26.0-34.0); Mean Corpuscular HGB Conc 33.1 g/dL (31.5-36.5); Mean Corpuscular Volume 86 fL (80-100); Mean Platelet Volume 10.5 fL (9.1-12.4); NEUTROPHILS ABSOLUTE AUTO 3.79 K/mm3 (1.96-9.15); NEUTROPHILS PERCENT AUTO 56 % (41-73); Platelet Count 362 K/mm3 (150-400); RDW Coefficient Variation 15.9 % (11.7-14.2); RDW Standard Deviation 49.5 fL (35.1-46.3); Red Blood Cell Count 3.21 M/mm3 (4.30-5.90); White Blood Cell Count 6.76 K/mm3 (4.00-11.30)
[2024-04-30 06:42] LABS: Albumin, Blood 2.7 g/dL (3.4-5.0); Anion Gap 12 mmol/L (3-11); Blood Urea Nitrogen 116 mg/dL (8-24); Bun/Creatinine Ratio 24.9 (12.0-20.0); CO2, Blood 23 mmol/L (21-32); Calcium, Blood 9.1 mg/dL (8.5-10.1); Chloride, Blood 105 mmol/L (98-108); Creatinine, Blood 4.66 mg/dL (0.60-1.20); Glomerular Filtration Rate 13 (60-); Glucose, Blood 274 mg/dL (70-99); Phosphorus, Blood 4.6 mg/dL (2.5-4.9); Potassium, Blood 4.2 mmol/L (3.5-5.5); Sodium, Blood 136 mmol/L (136-145)
--- NOTE | 2024-04-30 07:27 | NUR ---
SHIFT SUMMARY PT IS A&OX3. PT MUCH MORE PLEASANT AND APPRECIATIVE THIS SHIFT. VSS ON RA. PER TELEMETRY PT IS SB @ 56. C/O PAIN 9/10 IN BILAT SHOULDERS. MEDICATED WITH PRN 5MG PO OXYCODONE. TOLERATING A CONS CARB DIET, WITH 1.5L FLUID RESTRICTION. ISAIAS USES HIS URINAL IN BED INDEPENDENTLY. VOIDING ADEQUATE AMOUNTS OF CLEAR, LIGHT YELLOW URINE. NO BM THIS SHIFT. DRESSINGS TO BILAT BKA, C/D/I. REPOSITIONED TOLERATED. CONTACT PRECAUTIONS MAINTAINED FOR MRSA. BED IN LOWEST POSITION, CALL LIGHT WITHIN REACH.
[2024-04-30] MEDS ORDERED: NS 250 ML IV ONE (07:39)
[2024-04-30] MEDS ORDERED: Heparin Sodium 1000 Units/ML 10ML MDV ONE (07:39)
[2024-04-30 07:45] LABS: HEPATITIS B SURFACE ANTIBODY <3.10 IU/L
[2024-04-30] MEDS ORDERED: Midazolam HCl 1MG / ML 2ML Vial ONE (07:50)
[2024-04-30] MEDS ORDERED: FentaNYL Citrate 50 MCG/ML 2 ML Injection ONE (07:50)
[2024-04-30] MEDS ORDERED: NS 500 ML IV ONE (07:51)
[2024-04-30] MEDS ORDERED: Anticoagulant Sod Citrate Soln 3 ML SYR INJ PRN (08:20)
[2024-04-30] MEDS ORDERED: Insulin Glargine-Yfgn 100 Unit/mL 3 ML SYR SC SCH (09:00)
[2024-04-30] MEDS ORDERED: Insulin Human Lispro 100 Units/ML 3ML Syringe SC SCH ×2 (11:30)
--- NOTE | 2024-04-30 13:56 | NUR ---
DIALYSIS PT TAKEN TO THE DIALYSIS ROOM. PT WAS AWAKE AND ANSWERING QUESTIONS
[2024-04-30 15:29] LABS: HBV CORE ANTIBODIES,TOTAL Negative (Negative)
--- NOTE | 2024-04-30 18:23 | NUR ---
SHIFT SUMMARY PT WENT DOWN TO IR TO GET TUNNELED CATHETER THIS AM. CAME BACK UP TO UNIT PRETTY LETHARGIC BUT POST PROCEDURE VITALS WNL APART FROM HR WHICH HAS CONTINUED TO BE CLINT. WENT TO DIALYSIS AND CAME BACK TO UNIT AROUND 1630. PT REPORTS PAIN TO RIGHT SHOULDER WHICH IS CHRONIC AND MORE ACUTE PAIN TO CATH SITE. PO OXY GIVEN TWICE.
[2024-04-30] MEDS ORDERED: FentaNYL Citrate 50 MCG/ML 2 ML Injection IV PRN (20:05)
[2024-04-30 23:02] LABS: HCV QNT BY NAAT (IU/ML) 20000000 IU/mL; HCV QNT BY NAAT INTERP Detected (Not Detected)
[2024-05-01] VITALS (19 sets, daily range): BP systolic 84–153; BP diastolic 53–95
--- NOTE | 2024-05-01 04:35 | NUR ---
SHIFT SUMMARY PT ALERT ORIENTED ABLE TO VERBALIZE NEEDS. REMAINS WITH A POWER GLIDE TO HIS LT ARM. UNABLE TO DRAW BLOOD FROM IT. REMAINS ON A 1500 FLUID RESTRICTION. FSBS AC AND HS WAS 120. REMAINS ON TELEMETRY SINUS CLINT WITH A 1ST DEGREE HEART BLOCK AT A RATE OF 52. HES SCHEDULED TO GO TO DIALYSIS THIS AM. HAS A RT CHEST TUNNELED CATH FOR DIALYSIS. C/O PAIN TO THAT AREA. OXY WAS GIVEN WITH NO PAIN RELIEF NEW ORDER RECEIVED FOR FENTANYL PRN. HE GOT A DOSE AT 2031. REMAINS ON A DAILY WEIGHT. VSS ON RA SATTING AT 96%. RESTING IN BED AT THIS TIME.
[2024-05-01 04:58] LABS: BASOPHILS ABSOLUTE AUTO 0.07 K/mm3 (0.00-0.23); BASOPHILS PERCENT AUTO 1 % (0-2); EOSINOPHILS ABSOLUTE AUTO 0.36 K/mm3 (0.00-0.68); EOSINOPHILS PERCENT AUTO 5 % (0-6); Hematocrit 29.4 % (37.0-53.0); Hemoglobin 9.5 g/dL (13.5-17.5); IMMATURE GRAN ABSOLUTE AUTO 0.02 K/mm3 (0.00-0.10); IMMATURE GRAN PERCENT AUTO 0 % (0-1); LYMPHOCYTES ABSOLUTE AUTO 1.63 K/mm3 (0.84-5.20); LYMPHOCYTES PERCENT AUTO 24 % (21-46); MONOCYTES ABSOLUTE AUTO 0.72 K/mm3 (0.16-1.47); MONOCYTES PERCENT AUTO 11 % (4-13); Mean Corpuscular HGB 27.7 pg (26.0-34.0); Mean Corpuscular HGB Conc 32.3 g/dL (31.5-36.5); Mean Corpuscular Volume 86 fL (80-100); Mean Platelet Volume 9.9 fL (9.1-12.4); NEUTROPHILS ABSOLUTE AUTO 4.05 K/mm3 (1.96-9.15); NEUTROPHILS PERCENT AUTO 59 % (41-73); Platelet Count 216 K/mm3 (150-400); RDW Standard Deviation 49.9 fL (35.1-46.3); Red Blood Cell Count 3.43 M/mm3 (4.30-5.90); White Blood Cell Count 6.85 K/mm3 (4.00-11.30)
[2024-05-01 05:10] LABS: Albumin, Blood 2.8 g/dL (3.4-5.0); Anion Gap 10 mmol/L (3-11); Blood Urea Nitrogen 79 mg/dL (8-24); Bun/Creatinine Ratio 22.3 (12.0-20.0); CO2, Blood 28 mmol/L (21-32); Calcium, Blood 8.9 mg/dL (8.5-10.1); Chloride, Blood 102 mmol/L (98-108); Creatinine, Blood 3.55 mg/dL (0.60-1.20); Glomerular Filtration Rate 19 (60-); Glucose, Blood 204 mg/dL (70-99); Sodium, Blood 136 mmol/L (136-145)
[2024-05-01] MEDS ORDERED: Anticoagulant Sod Citrate Soln 3 ML SYR INJ PRN (08:30)
--- NOTE | 2024-05-02 03:50 | NUR ---
SHIFT SUMMARY PT ALERT ORIENTED VERBALIZES NEEDS. HAS BEEN A LITTLE AGRESSIVE THIS SHIFT AND ARGUING ABOUT HIS CARE. HE KEPT INSISTING THAT HE GETS MORE FLUIDS THEN WHAT IS ORDERED EVEN AFTER BEING EXPLAINED TO THAT HES ON A FLUID RESTRICTION HE KEPT YELLING STATING THAT IM NOT HIS MOM. C/O SHOULDER PAIN MEDICATED WITH OXY X 1. DRESSINGS WERE CHANGED TO BILAT bka SITES. AREAS LOOK GOOD WITH STERI STRIPS INTACT TO LT BKA SITE. ORDER WAS PUT IN FOR PALLIATIVE CARE. POWERGLIDE INTACT TO LT ARM BUT UNABLE TO OBTAIN BLOOD FROM IT. VSS ON RA SATTING AT 95%. HE HAS A RIGHT CHEST TUNNELED CATHETER FOR DIALYSIS. UNSURE IF HES GOING TO DIALYSIS THIS AM. FS DONE AC AND HS WAS 150. HE IS ON STRICT I&O AND DAILY WEIGHTS. RESTING IN BED AT THIS TIME. REMAINS ON TELEMETRY AT [place] WITH A 1ST DEGREE HEART BLOCK AND A RATE OF 52.
[2024-05-02 04:44] VITALS: BP 141/71
[2024-05-02 05:18] LABS: Albumin, Blood 2.7 g/dL (3.4-5.0); Anion Gap 10 mmol/L (3-11); Blood Urea Nitrogen 61 mg/dL (8-24); Bun/Creatinine Ratio 18.6 (12.0-20.0); CO2, Blood 32 mmol/L (21-32); Calcium, Blood 8.9 mg/dL (8.5-10.1); Chloride, Blood 99 mmol/L (98-108); Creatinine, Blood 3.28 mg/dL (0.60-1.20); Glomerular Filtration Rate 20 (60-); Glucose, Blood 251 mg/dL (70-99); Phosphorus, Blood 3.8 mg/dL (2.5-4.9); Potassium, Blood 4.6 mmol/L (3.5-5.5); Sodium, Blood 136 mmol/L (136-145)
[2024-05-02 07:19] VITALS: BP 122/70
[2024-05-02] MEDS ORDERED: BUME1 PO (12:14)
[2024-05-02] MEDS ORDERED: NEPHRO VITAMIN0.8 MG PO (12:14)
[2024-05-02] MEDS ORDERED: TAMS.4ER PO (12:14)
--- NOTE | 2024-05-02 13:33 | NUR ---
DISCHARGE NOTE- PT WAS DISCHARGED HOME WITH HOME HEALTH, VERBAL AND WRITTEN DISCHARGE INSTRUCTIONS WERE PROVIDED AND THE PT ACKNOWLEDGED UNDERSTANDING OF THEM. PT WILL BE TRANSPORTED BY FAMILY VIA WC. TELE DC'D, PT USING THE BEDPAN AND URINAL AT THIS TIME. HARD COPY SCRIPT FOR LARGER SLIDE BOARD WAS PROVIDED TO PT S.O. PT WILL BE ESCORTED OUT VIA WC BY A STAFF MEMBER ONCE HIS FAMILY MEMBER RETURNS TO THE ROOM. PT WILL CALL. IV DC'D BY THE TEACHER EARLY CHILDHOOD DEVELOPMENT. NO S&S OF DISTRESS NOTED.
[2024-05-03 10:19] LABS: HEPATITIS A ANTIBODY, IGM Negative (Negative); HEPATITIS B CORE ANTIBODY, IGM Negative (Negative); HEPATITIS B SURFACE ANTIGEN Negative (Negative); HEPATITIS C AB CIA INTERP High Pos (Negative); HEPATITIS C ANTIBODY CIA INDEX >11.00 IV
[2024-05-03 12:49] LABS: HEPATITIS B SURFACE ANTIBODY <3.10 IU/L
[2024-05-04 19:52] LABS: HCV QNT BY NAAT (IU/ML) 593000 IU/mL; HCV QNT BY NAAT (LOG IU/ML) 5.77; HCV QNT BY NAAT INTERP Detected (Not Detected)
== END 2024-05-02 14:54 | disposition home health service (06) | DRG 291 ==
LOC: ER 18:47 → MEDS 18:48 → ENPENDDIS 05-02 13:00 → MEDS 05-02 14:54
PROVIDERS: Hospitalist; Internal Medicine; Student in an Organized Health Care Education/Training Program; ADMIT Internal Medicine
PROC: 0JH63XZ Insertion of Tunneled Vascular Access Device into Chest Subcutaneous Tissue and Fascia, Percutaneous Approach (ICD-10-PCS; principal; 2024-04-30)
PROC: 02HV33Z Insertion of Infusion Device into Superior Vena Cava, Percutaneous Approach (ICD-10-PCS; 2024-04-30)
PROC: B518ZZA Fluoroscopy of Superior Vena Cava, Guidance (ICD-10-PCS; 2024-04-30)
PROC: 5A1D70Z Performance of Urinary Filtration, Intermittent, Less than 6 Hours Per Day (ICD-10-PCS; 2024-04-30)
PROC: B548ZZA Ultrasonography of Superior Vena Cava, Guidance (ICD-10-PCS; 2024-04-30)
DX: I13.2 Hypertensive heart and chronic kidney disease with heart failure and with stage 5 chronic kidney disease, or end stage renal disease (principal); I50.31 Acute diastolic (congestive) heart failure; N18.6 End stage renal disease; N17.9 Acute kidney failure, unspecified; E87.20 Acidosis, unspecified; E11.22 Type 2 diabetes mellitus with diabetic chronic kidney disease; D63.1 Anemia in chronic kidney disease; G89.4 Chronic pain syndrome; F10.10 Alcohol abuse, uncomplicated; F17.210 Nicotine dependence, cigarettes, uncomplicated; I16.0 Hypertensive urgency; E11.65 Type 2 diabetes mellitus with hyperglycemia; N40.0 Benign prostatic hyperplasia without lower urinary tract symptoms; E55.9 Vitamin D deficiency, unspecified; E11.51 Type 2 diabetes mellitus with diabetic peripheral angiopathy without gangrene; E11.40 Type 2 diabetes mellitus with diabetic neuropathy, unspecified; T73.0XXA Starvation, initial encounter; E66.9 Obesity, unspecified; L29.9 Pruritus, unspecified; Z79.4 Long term (current) use of insulin; Z79.85 Long-term (current) use of injectable non-insulin antidiabetic drugs; Z79.899 Other long term (current) drug therapy; Z98.890 Other specified postprocedural states; Z90.49 Acquired absence of other specified parts of digestive tract; Z90.89 Acquired absence of other organs; Z89.512 Acquired absence of left leg below knee; Z89.511 Acquired absence of right leg below knee; Z99.2 Dependence on renal dialysis; Z79.891 Long term (current) use of opiate analgesic; Z87.19 Personal history of other diseases of the digestive system; Z91.199 Patient's noncompliance with other medical treatment and regimen due to unspecified reason; Z91.158 Patient's noncompliance with renal dialysis for other reason; I25.2 Old myocardial infarction; Z91.048 Other nonmedicinal substance allergy status; Z87.442 Personal history of urinary calculi; Z68.25 Body mass index [BMI] 25.0-25.9, adult; R06.00 Dyspnea, unspecified; F17.200 Nicotine dependence, unspecified, uncomplicated
CPT/HCPCS: 0241U; 36415; 36558; 71045; 71046; 76937; 80048; 80053; 80069; 80074; 81001; 82010; 82947; 83540; 83550; 83880; 84484; 85025; 85610; 86480; 86704; 87340; 87522; 93005; 93010; 93306; 94640; 94664; 94760; 94762; 96365; 96374; 96375; 99152; 99153; 99285-25; A9270; C1750; C1769; C1894; G0378; J0360; J0456; J1644; J1650; J1815; J1940; J2250; J2405; J2919; J3010; J7040; J7050; Q5106